=== PATIENT | female | born 1980 | race Caucasian/White ===

== ENCOUNTER 2020-06-21 16:13 | Emergency (ER) | payer OTHER ==
[2020-06-21 17:35] LABS: Basophils % 0.5 % (0-1.3); Hematocrit 41.6 % (36.0-45.0); Lymphocytes % 41.5 % (15.3-44.8); MPV 7.4 fL (7.6-11.3); RBC Red Blood Cell Count 4.67 M/uL (3.86-4.86)
[2020-06-21] MEDS ORDERED: NA CHLORIDE 0.9% 50 ML IV ONE (17:43)
[2020-06-21] MEDS ORDERED: dexAMETHasone 10 MG/ML VIAL ONE (17:43)
[2020-06-21 17:52] LABS: BUN Blood Urea Nitrogen 12 mg/dL (7-18); Bicarbonate 28 mmol/L (21-32); Glucose Level 75 mg/dL (74-106); Potassium 3.3 mmol/L (3.5-5.1); Sodium Level 141 mmol/L (136-145); Troponin (Emerg Dept Use Only) < 0.02 ng/mL (0.0-0.045)
--- NOTE | 2020-06-21 17:52 | RAD REPORT ---
EXAM DESCRIPTION: RAD - Chest Pa And Lat (2 Views) - 06/21/2020 5:19 pm CLINICAL HISTORY: CHEST PAIN Chest pain. COMPARISON: Chest Pa And Lat (2 Views) dated 02/19/2017; Chest Single View dated 08/20/2016; CHEST SI NGLE VIEW dated 11/03/2012; ABDOMEN 1 VIEW KUB dated 11/07/2008 FINDINGS: The lungs are clear. The heart is normal in size. No displaced fractures. IMPRESSION: No acute or concerning finding suspected.
--- NOTE | 2020-06-21 17:54 | ER ---
Nurse's Notes [facility] Name: Marisol Pond Age: 39 yrs Sex: Female : 1980 Arrival Date: 06/21/2020 Time: 16:14 Bed 17 Private MD: Diagnosis: Chest pain, unspecified Presentation: 06/21 16:20 Chief complaint: Patient states: "A couple months back, I would get sharp chest pains. ss I blew it off, but since Friday, it's been happening more often. I just noticed that there is something about my body that isn't normal. If I take a deep breath, or if I move my arm a certain way, I would feel it. I have anxiety, and I take something for that, but I haven't had anything going on out of the norm that would make me anxious and feel this way. Just because of the fact it's happened multiple times today make me come in.". Coronavirus screen: Client denies travel out of the [place] in the last 14 days. Ebola Screen: Patient denies exposure to infectious person. Patient denies travel to an Ebola-affected area in the 21 days before illness onset. Initial Sepsis Screen: Does the patient meet any 2 criteria? No. Patient's initial sepsis screen is negative. Does the patient have a suspected source of infection? No. Patient's initial sepsis screen is negative. Risk Assessment: Do you want to hurt yourself or someone else? Patient reports no desire to harm self or others. Onset of symptoms is unknown. 16:20 Method Of Arrival: Ambulatory 16:20 Acuity: KOBY 3 Triage Assessment: 16:20 General: Appears distressed, uncomfortable, Behavior is cooperative, appropriate for bp age, anxious. Pain: Complains of pain in chest. EENT: No deficits noted. Neuro: No deficits noted. Cardiovascular: Rhythm is sinus rhythm. Respiratory: No deficits noted. GI: No signs and/or symptoms were reported involving the gastrointestinal system. : No signs and/or symptoms were reported regarding the genitourinary system. Derm: No deficits noted. Musculoskeletal: No deficits noted. Historical: - Allergies: 16:24 No Known Allergies; ss - Home Meds: 16:24 fluoxetine 10 mg Oral tab 1 tabs once daily [Active]; ss - PMHx: 16:24 Kidney stones; Migraines; Anxiety; ss - PSHx: 16:24 Kidney stents; Lithotripsy; ss - Immunization history:: Adult Immunizations up to date. - Social history:: Smoking status: Patient denies any tobacco usage or history of. Screenin:11 Abuse screen: Denies threats or abuse. Denies injuries from another. Nutritional bp screening: No deficits noted. Tuberculosis screening: No symptoms or risk factors identified. Fall Risk None identified. Assessment: 16:20 General: SEE TRIAGE NOTE. bp 17:12 Reassessment: PT TO CT. bp 18:03 Reassessment: MD AT B/S FOR RE-EVAL. bp 18:06 Reassessment: PT D/C HOME AMBULATORY, DX WITH NONSPECIFIC CHEST PAIN. bp Vital Signs: 16:20 BP 128 / 94; Pulse 96; Resp 14; Temp 98.5(TE); Pulse Ox 99% on R/A; Weight 49.44 kg; ss Height 5 ft. 0 in. (152.40 cm); Pain 0/10; 17:11 BP 128 / 93; Pulse 86; Resp 16; Pulse Ox 100% ; bp 18:06 BP 139 / 87; Pulse 89; Resp 11; Pulse Ox 100% ; bp 16:20 Body Mass Index 21.29 (49.44 kg, 152.40 cm) ED Course: 16:14 Patient arrived in ED. ag5 16:23 Triage completed. ss 16:24 Arm band placed on right wrist. ss 16:36 Raúl Tavares, ROHAN is Primary Nurse. bp 16:39 Amara Salinas FNP-C is PHCP. snw 16:39 Gomez Ochoa MD is Attending Physician. snw 17:10 Inserted saline lock: 20 gauge in right antecubital area, using aseptic technique. dh4 Blood collected. 17:11 Patient has correct armband on for positive identification. Bed in low position. Call bp light in reach. Side rails up X2. surveillance system monitor on. Pulse ox on. NIBP on. 17:17 Chest Pa And Lat (2 Views) XRAY In Process Unspecified. EDMS 18:07 No provider procedures requiring assistance completed. IV discontinued, intact, bp bleeding controlled, No redness/swelling at site. Pressure dressing applied. Patient maintains SpO2 saturation greater than 95% on room air. Administered Medications: 17:15 Drug: Decadron 10 mg Route: IM; Site: right deltoid; bp 18:28 Follow up: Response: No adverse reaction bp Outcome: 17:53 Discharge ordered by MD. amezquita 18:07 Discharged to home ambulatory. bp 18:07 Condition: stable 18:07 Discharge instructions given to patient, Instructed on discharge instructions, follow up and referral plans. medication usage, Demonstrated understanding of instructions, follow-up care, medications, Prescriptions given X 2. 18:29 Patient left the ED. bp Signatures: Dispatcher [employer] EDMS Amara Salinas, ORGANIC PREPARATION ANALYST-C ORGANIC PREPARATION ANALYST-Csnw Cecy Vargas RN RN ss Raúl Tavares RN RN Napoleon Padgett [facility] Arnie Porter 4
--- NOTE | 2020-06-21 17:54 | EDPHYS ---
Physician Documentation [facility] Name: Marisol Pond Age: 39 yrs Sex: Female : 1980 Arrival Date: 06/21/2020 Time: 16:14 Bed 17 Private MD: ED Physician Gomez Ochoa HPI: 06/21 17:42 This 39 yrs old Female presents to ER via Ambulatory with complaints of Chest snw Pain. 17:42 Onset: The symptoms/episode began/occurred 3 week(s) ago, and became persistent. snw Associated signs and symptoms: Pertinent positives: sharp chest pain intermittently. Modifying factors: The patient symptoms are alleviated by nothing. It is unknown whether or not the patient has had similar symptoms in the past. The patient has not recently seen a physician. Historical: - Allergies: 16:24 No Known Allergies; ss - Home Meds: 16:24 fluoxetine 10 mg Oral tab 1 tabs once daily [Active]; ss - PMHx: 16:24 Kidney stones; Migraines; Anxiety; ss - PSHx: 16:24 Kidney stents; Lithotripsy; ss - Immunization history:: Adult Immunizations up to date. - Social history:: Smoking status: Patient denies any tobacco usage or history of. ROS: 17:41 Constitutional: Negative for fever, chills, and weight loss, Eyes: Negative for injury, snw pain, redness, and discharge, ENT: Negative for injury, pain, and discharge, Neck: Negative for injury, pain, and swelling, Respiratory: Negative for shortness of breath, cough, wheezing, and pleuritic chest pain, Abdomen/GI: Negative for abdominal pain, nausea, vomiting, diarrhea, and constipation, Back: Negative for injury and pain, : Negative for injury, bleeding, discharge, and swelling, MS/Extremity: Negative for injury and deformity, Skin: Negative for injury, rash, and discoloration, Neuro: Negative for headache, weakness, numbness, tingling, and seizure, Psych: Negative for depression, anxiety, suicide ideation, homicidal ideation, and hallucinations. 17:41 Cardiovascular: Positive for chest pain, of the left breast, Negative for edema, orthopnea, palpitations, paroxysmal nocturnal dyspnea. Exam: 17:41 Constitutional: This is a well developed, well nourished patient who is awake, alert, snw and in no acute distress. Head/Face: Normocephalic, atraumatic. Eyes: Pupils equal round and reactive to light, extra-ocular motions intact. Lids and lashes normal. Conjunctiva and sclera are non-icteric and not injected. Cornea within normal limits. Periorbital areas with no swelling, redness, or edema. ENT: Nares patent. No nasal discharge, no septal abnormalities noted. Tympanic membranes are normal and external auditory canals are clear. Oropharynx with no redness, swelling, or masses, exudates, or evidence of obstruction, uvula midline. Mucous membranes moist. Neck: Trachea midline, no thyromegaly or masses palpated, and no cervical lymphadenopathy. Supple, full range of motion without nuchal rigidity, or vertebral point tenderness. No Meningismus. Chest/axilla: Normal chest wall appearance and motion. Nontender with no deformity. No lesions are appreciated. Cardiovascular: Regular rate and rhythm with a normal S1 and S2. No gallops, murmurs, or rubs. Normal PMI, no JVD. No pulse deficits. Respiratory: Lungs have equal breath sounds bilaterally, clear to auscultation and percussion. No rales, rhonchi or wheezes noted. No increased work of breathing, no retractions or nasal flaring. Abdomen/GI: Soft, non-tender, with normal bowel sounds. No distension or tympany. No guarding or rebound. No evidence of tenderness throughout. Back: No spinal tenderness. No costovertebral tenderness. Full range of motion. Skin: Warm, dry with normal turgor. Normal color with no rashes, no lesions, and no evidence of cellulitis. MS/ Extremity: Pulses equal, no cyanosis. Neurovascular intact. Full, normal range of motion. Neuro: Awake and alert, GCS 15, oriented to person, place, time, and situation. Cranial nerves II-XII grossly intact. Motor strength 5/5 in all extremities. Sensory grossly intact. Cerebellar exam normal. Normal gait. Psych: Awake, alert, with orientation to person, place and time. Behavior, mood, and affect are within normal limits. 17:43 ECG was reviewed by the Attending Physician. snw Vital Signs: 16:20 BP 128 / 94; Pulse 96; Resp 14; Temp 98.5(TE); Pulse Ox 99% on R/A; Weight 49.44 kg; ss Height 5 ft. 0 in. (152.40 cm); Pain 0/10; 17:11 BP 128 / 93; Pulse 86; Resp 16; Pulse Ox 100% ; bp 18:06 BP 139 / 87; Pulse 89; Resp 11; Pulse Ox 100% ; bp 16:20 Body Mass Index 21.29 (49.44 kg, 152.40 cm) ss MDM: 17:28 Patient medically screened. snw 17:55 Data reviewed: vital signs, nurses notes. Counseling: I had a detailed discussion with snw the patient and/or guardian regarding: the historical points, exam findings, and any diagnostic results supporting the discharge/admit diagnosis, the presence of at least one elevated blood pressure reading (>120/80) during this emergency department visit, lab results, radiology results, the need for outpatient follow up, to return to the emergency department if symptoms worsen or persist or if there are any questions or concerns that arise at home. Special discussion: Based on the history and exam findings, there is no indication for further emergent testing or inpatient evaluation. I discussed with the patient/guardian the need to see the product design manager for further evaluation of the symptoms. I discussed with the patient/guardian the need to see the primary care provider for further evaluation of the symptoms. 06/21 16:41 Order name: DD; Complete Time: 17:46 snw 06/21 16:41 Order name: Troponin (emerg Dept Use Only); Complete Time: 17:52 w 06/21 16:41 Order name: Chest Pa And Lat (2 Views) XRAY; Complete Time: 17:56 snw 06/21 16:41 Order name: Chem 7; Complete Time: 17:52 snw 06/21 16:41 Order name: CBC with Diff; Complete Time: 17:44 snw 06/21 16:41 Order name: TSH; Complete Time: 17:52 snw 06/21 16:41 Order name: EKG; Complete Time: 16:41 snw 06/21 16:41 Order name: EKG - Nurse/Tech; Complete Time: 16:43 snw EC:43 Rate is 78 beats/min. Rhythm is regular. QRS [place] is Normal. OR interval is normal. snw Clinical impression: p wave inversions suggestive of ectopic atrial rhythm. Administered Medications: 17:15 Drug: Decadron 10 mg Route: IM; Site: right deltoid; bp 18:28 Follow up: Response: No adverse reaction bp Disposition: 06/21/20 17:53 Discharged to Home. Impression: Chest pain, unspecified. - Condition is Stable. - Discharge Instructions: Nonspecific Chest Pain, Electrocardiography, Hypertension, Aspirin and Your Heart. - Prescriptions for Protonix 40 mg Oral Tablet - take 1 tablet by ORAL route once daily; 30 tablet. Prednisone 20 mg Oral Tablet - take 2 tablet by ORAL route once daily for 5 days; 10 tablet. - Medication Reconciliation Form, Thank You Letter, Antibiotic Education, Prescription Opioid Use, Work release form form. - Follow up: Emergency Department; When: As needed; Reason: Worsening of condition. Follow up: Private Physician; When: 1 - 2 days; Reason: Recheck today's complaints, Continuance of care, Re-evaluation by your physician. Addendum: 06/23/2020 17:02 Co-signature as Attending Physician, Gomez Ochoa MD I agree with the assessment and k dr plan of care. Signatures: Dispatcher [employer] EDSC Gomez Ochoa MD MD [facility] Amara Salinas, HORSE TREKKING GUIDE-C HORSE TREKKING GUIDE-Csnw Cecy Vargas, ROHAN RN ss Raúl Tavares RN RN bp Corrections: (The following items were deleted from the chart) 06/21 18:29 17:53 06/21/2020 17:53 Discharged to Home. Impression: Chest pain, unspecified. bp Condition is Stable. Forms are Medication Reconciliation Form, Thank You Letter, Antibiotic Education, Prescription Opioid Use. Follow up: Emergency Department; When: As needed; Reason: Worsening of condition. Follow up: Private Physician; When: 1 - 2 days; Reason: Recheck today's complaints, Continuance of care, Re-evaluation by your physician. snw
[2020-06-21 18:34] VITALS: TEMP 98.5
[2020-06-21 18:36] VITALS: O2SAT 100
[2020-06-21 18:37] VITALS: BP 139/87
--- NOTE | 2020-06-22 08:44 | EKG ---
Test Date: 2020-06-21 Test Time: 16:49:45 Social Service Assistant: CHRISTINA MEASUREMENT RESULTS: Intervals: Rate: 78 [place]: 152 QRSD: 80 QT: 374 QTc: 426 [place]: P: 263 [place]: 152 QRS: 75 T: 66 INTERPRETIVE STATEMENTS: Unusual P axis, possible ectopic atrial rhythm Abnormal ECG Compared to ECG 08/20/2016 13:13:22 Sinus rhythm no longer present Sinus arrhythmia no longer present Electronically Signed On 06-22-20 08:43:17 CDT by Irvin Pyle
== END 2020-06-21 18:29 | disposition home or self-care (01) ==
LOC: ER 16:13
DX: R07.9 Chest pain, unspecified (principal); F41.9 Anxiety disorder, unspecified; Z87.442 Personal history of urinary calculi
CPT/HCPCS: 93005; 85025; 80048; 36415; 85379; 84443; 84484; 71046; 96372; 99285; J1100

== ENCOUNTER 2021-01-12 18:52 | Emergency (ER) | payer OTHER ==
[2021-01-12 20:21] LABS: Absolute Lymphocytes (CBC) 2.7 K/uL (0.7-4.9); Basophils % 0.4 % (0-1.3); Hematocrit 41.3 % (36.0-45.0); Lymphocytes % 27.1 % (15.3-44.8); MPV 7.2 fL (7.6-11.3); RBC Red Blood Cell Count 4.72 M/uL (3.86-4.86)
[2021-01-12 20:25] LABS: Protime INR 0.92
[2021-01-12] MEDS ORDERED: METOCLOPRAMIDE 10 MG/2mL INJ ONE (20:26)
[2021-01-12] MEDS ORDERED: DIPHENHYDRAMINE 50 MG/ML VIAL ONE (20:26)
[2021-01-12] MEDS ORDERED: NA CHLORIDE 0.9% 50 ML ONE (20:27)
[2021-01-12] MEDS ORDERED: NA CHLORIDE 0.9% 1,000 ML ONE ×2 (20:27→22:13)
[2021-01-12] MEDS ORDERED: ACETAMINOPHEN 500 MG TAB ONE (20:27)
[2021-01-12] MEDS ORDERED: dexAMETHasone 10 MG/ML VIAL ONE (20:27)
[2021-01-12 20:38] LABS: ALT/SGPT 24 U/L (12-78); AST/SGOT 16 U/L (15-37); Alkaline Phosphatase 79 U/L (45-117); BUN Blood Urea Nitrogen 15 mg/dL (7-18); Bicarbonate 26 mmol/L (21-32); Bilirubin Direct < 0.1 mg/dL (0-0.2); Bilirubin Total 0.3 mg/dL (0.2-1.0); Glucose Level 109 mg/dL (74-106); Potassium 3.7 mmol/L (3.5-5.1); Sodium Level 139 mmol/L (136-145)
--- NOTE | 2021-01-12 20:47 | RAD REPORT ---
EXAM DESCRIPTION: CT - Head Brain Wo Cont - 01/12/2021 8:05 pm CLINICAL HISTORY: HEADACHE COMPARISON: <Comparisons> TECHNIQUE: Axial 5 mm thick images of the head were obtained without IV contrast. All CT scans are performed using dose optimization technique as appropriate and may include automated exposure control or mA/KV adjustment according to patient size. FINDINGS: No intracranial hemorrhage, mass, edema or shift of mid-line structures. No acute infarcti on changes seen. No abnormal extra-axial fluid collections. Ventricles are normal. Mastoid air cells and visualized portions of the paranasal sinuses are clear. No acute bony findings. IMPRESSION: Negative non-contrast CT head examination.
[2021-01-12] MEDS ORDERED: CEFTRIAXONE/SWI 1gm 1 GM/10 ML SYR ONE (22:13)
[2021-01-12] MEDS ORDERED: KETOROLAC 30 MG/ML INJ ONE (22:13)
[2021-01-12 22:23] LABS: Urine Specific Gravity/Preg 1.025 (1.005-1.030)
--- NOTE | 2021-01-12 23:22 | ER ---
Nurse's Notes [facility] Name: Marisol Pond Age: 40 yrs Sex: Female : 1980 Arrival Date: 01/12/2021 Time: 19:02 Bed 14 Private MD: Diagnosis: Headache;Urinary tract infection, site not specified Presentation: 01/12 19:19 Chief complaint: Patient states: Migraine started at 1300 today. Took Excedrin, no ca1 relief. HX of migraines but this is the worst. Reports N/V. Coronavirus screen: Client denies travel out of the [place] in the last 14 days. headache, nausea, vomiting. Client presents with at least one sign or symptom that may indicate coronavirus-19. Standard/surgical mask placed on the client. Provider contacted for isolation considerations. Ebola Screen: Patient negative for fever greater than or equal to 101.5 degrees Fahrenheit, and additional compatible Ebola Virus Disease symptoms Patient denies exposure to infectious person. Patient denies travel to an Ebola-affected area in the 21 days before illness onset. No symptoms or risks identified at this time. Initial Sepsis Screen: Does the patient meet any 2 criteria? No. Patient's initial sepsis screen is negative. Does the patient have a suspected source of infection? No. Patient's initial sepsis screen is negative. Risk Assessment: Do you want to hurt yourself or someone else? Patient reports no desire to harm self or others. Onset of symptoms was January 12, 2021. 19:19 Method Of Arrival: Ambulatory ca1 19:19 Acuity: KOBY 3 ca1 Triage Assessment: 20:10 Headache History: The patient has had previous headaches and this one is more severe sf than previous episodes. General: Appears uncomfortable. Pain: Pain currently is 8 out of 10 on a pain scale. Pain began suddenly, Also complains of nausea, photophobia. 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 Client reports receiving the 2nd dose of the Covid vaccine, Client reports receiving the 1st dose of the Covid vaccine. - Social history:: Smoking status: Patient denies any tobacco usage or history of. Screenin:12 Abuse screen: Denies threats or abuse. Nutritional screening: No deficits noted. ea Tuberculosis screening: No symptoms or risk factors identified. Fall Risk IV access (20 points). Assessment: 20:10 General: Appears in no apparent distress. uncomfortable, Behavior is calm, cooperative. sf Pain: Complains of pain in head. Neuro: Level of Consciousness is awake, alert, Oriented to person, place, time, situation, Reports headache photophobia. Cardiovascular: No deficits noted. Respiratory: No deficits noted. GI: Abdomen is non-distended, Reports nausea. : No deficits noted. Derm: No deficits noted. No signs and/or symptoms reported regarding the dermatologic system. 21:17 Reassessment: Patient appears in no apparent distress at this time. Patient and/or sf family updated on plan of care and expected duration. Pain level reassessed. Patient is alert, oriented x 3, equal unlabored respirations, skin warm/dry/pink. Patient reports headache down to 4/10 but states "I'm surprised I still have a headache" Patient states feeling better. Patient states symptoms have improved. 22:00 Reassessment: Patient appears in no apparent distress at this time. Patient and/or sf family updated on plan of care and expected duration. Pain level reassessed. Patient is alert, oriented x 3, equal unlabored respirations, skin warm/dry/pink. Patient states feeling better. Patient states symptoms have improved. 23:36 Reassessment: Patient appears in no apparent distress at this time. Patient and/or sf family updated on plan of care and expected duration. Pain level reassessed. Patient is alert, oriented x 3, equal unlabored respirations, skin warm/dry/pink. Patient denies pain at this time. Patient states feeling better. Patient states symptoms have improved. Vital Signs: 19:19 BP 133 / 99; Pulse 96; Resp 16 S; Temp 96.9(TE); Pulse Ox 100% on R/A; Weight 51.71 kg ca1 (R); Height 5 ft. 0 in. (152.40 cm) (R); Pain 9/10; 20:18 BP 124 / 82; Pulse 105; Resp 16; Pulse Ox 100% ; sf 21:00 BP 111 / 82; Pulse 93; Resp 16; Pulse Ox 100% ; Pain 4/10; sf 22:00 BP 109 / 75; Pulse 96; Resp 16; Pulse Ox 97% ; Pain 2/10; sf 23:00 BP 104 / 74; Pulse 98; Resp 16; Pulse Ox 99% ; sf 19:19 Body Mass Index 22.26 (51.71 kg, 152.40 cm) ca1 Shane Coma Score: 23:19 Eye Response: spontaneous(4). Verbal Response: oriented(5). Motor Response: obeys [facility] commands(6). Total: 15. ED Course: 19:02 Patient arrived in ED. am2 19:21 Triage completed. ca1 19:21 Arm band placed on right wrist. ca1 19:24 Beny Villegas MD is Attending Physician. mh7 19:29 Zeb Corea RN is Primary Nurse. sf 20:00 CT Head Brain wo Cont In Process Unspecified. EDMS 20:03 Patient moved back from CT. sf 20:12 Patient has correct armband on for positive identification. Bed in low position. Call ea light in reach. Side rails up X 1. 20:12 Inserted saline lock: 22 gauge in right wrist, using aseptic technique. Blood collected.ea 21:25 No provider procedures requiring assistance completed. Urine collected: clean catch sf specimen, cloudy, sediment noted. 23:20 Malcolm Deleon MD is Referral Physician. [facility] 23:36 IV discontinued, intact, bleeding controlled, No redness/swelling at site. Pressure sf dressing applied. Administered Medications: 20:14 Drug: NS 0.9% 1000 ml Route: IV; Rate: 1000 ml; Site: right forearm; sf 21:16 Follow up: Response: No adverse reaction; Pain is decreased; IV Status: Completed sf infusion; IV Intake: 1000ml 20:14 Drug: Tylenol 1000 mg Route: PO; sf 21:15 Follow up: Response: No adverse reaction; Pain is decreased sf 20:15 Drug: Benadryl (diphenhydrAMINE) 50 mg Route: IVP; Site: right forearm; sf 21:15 Follow up: Response: No adverse reaction; Pain is decreased sf 20:17 Drug: Reglan (metoCLOPramide) 10 mg Route: IVP; Site: right forearm; sf 21:16 Follow up: Response: No adverse reaction; Pain is decreased sf 20:19 Drug: Decadron - Dexamethasone 10 mg Route: IVP; Site: right forearm; sf 21:15 Follow up: Response: No adverse reaction; Pain is decreased sf 22:00 Drug: NS 0.9% 1000 ml Route: IV; Rate: 1 bolus; Site: right antecubital; sf 23:35 Follow up: IV Status: Completed infusion; IV Intake: 1000ml sf 22:01 Drug: TORadol (ketorolac) 30 mg Route: IVP; Site: right antecubital; sf 23:35 Follow up: Response: No adverse reaction; Pain is decreased sf 22:02 Drug: Rocephin (cefTRIAXone) 1 grams Route: IV; Rate: calculated rate; Site: right sf antecubital; 22:03 Follow up: IV Status: Completed infusion; IV Intake: 10ml sf 23:36 Follow up: Response: No adverse reaction sf Intake: 21:16 IV: 1000ml; Total: 1000ml. sf 22:03 IV: 10ml; Total: 1010ml. sf 23:35 IV: 1000ml; Total: 2010ml. sf Outcome: 23:21 Discharge ordered by MD. lyle 23:36 Discharged to home ambulatory. sf 23:36 Condition: stable 23:36 Discharge instructions given to patient, Instructed on discharge instructions, follow up and referral plans. medication usage, Demonstrated understanding of instructions, follow-up care, medications, Prescriptions given X 2. 23:36 Patient left the ED. sf Addendum: 01/16/2021 07:52 Addendum: Culture Results: Positive urine culture. No further action required. Bacteria s s sensitive to prescribed antibiotic. Signatures: Dispatcher [employer] EDMS Cecy Vargas RN RN ss Moreno, Amanda am2 Antunez, Elena, RN RN ea Acob, Cheryl, RN RN ca1 Holmes, Maurice, MD MD Zeb Mcmahon RN RN
--- NOTE | 2021-01-12 23:22 | EDPHYS ---
Physician Documentation [facility] Name: Marisol Pond Age: 40 yrs Sex: Female : 1980 Arrival Date: 01/12/2021 Time: 19:02 Bed 14 Private MD: ED Physician Beny Villegas HPI: 01/12 19:41 This 40 yrs old Female presents to ER via Ambulatory with complaints of mh7 Headache. 19:41 The patient complains of pain to the right side of head. The patient describes the mh7 headache as intermittent, throbbing. Onset: The symptoms/episode began/occurred today, at 13:00. 19:42 Associated signs and symptoms: Pertinent positives: nausea, Photophobia vomiting, mh7 Pertinent negatives: altered mental status, dizziness, fever, malaise, neck stiffness, paresthesias, rash, sinus congestion, sinus tenderness, vision changes, vision loss, weakness, vertigo. Severity of symptoms: At its worst the pain was moderate, earlier today, in the emergency department the pain is unchanged. Headache History: The patient has had previous headaches and this one is more severe than previous episodes. The symptoms are alleviated by nothing. the symptoms are aggravated by lights, noise. The patient has experienced similar episodes in the past, chronically, with the last episode occurring 1 month(s) ago. 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 Client reports receiving the 2nd dose of the Covid vaccine, Client reports receiving the 1st dose of the Covid vaccine. - Social history:: Smoking status: Patient denies any tobacco usage or history of. ROS: 19:42 Constitutional: Negative for fever, chills, and weight loss, Eyes: Negative for injury, mh7 pain, redness, and discharge, ENT: Negative for injury, pain, and discharge, Neck: Negative for injury, pain, and swelling, Cardiovascular: Negative for chest pain, palpitations, and edema, Respiratory: Negative for shortness of breath, cough, wheezing, and pleuritic chest pain, Back: Negative for injury and pain. 19:42 : Negative for injury, bleeding, discharge, and swelling, MS/Extremity: Negative for injury and deformity, Skin: Negative for injury, rash, and discoloration, Psych: Negative for depression, anxiety, suicide ideation, homicidal ideation, and hallucinations, Allergy/Immunology: Negative for hives, rash, and allergies, Endocrine: Negative for neck swelling, polydipsia, polyuria, polyphagia, and marked weight changes, Hematologic/Lymphatic: Negative for swollen nodes, abnormal bleeding, and unusual bruising. 19:42 Abdomen/GI: Negative for abdominal pain, diarrhea, constipation, abdominal cramps, abdominal distension, anorexia, dysphagia, hematemesis, black/tarry stool, rectal pain, rectal bleeding, bowel incontinence, flatulence. Exam: 19:42 Constitutional: This is a well developed, well nourished patient who is awake, alert, mh7 and in no acute distress. Head/Face: Normocephalic, atraumatic. Eyes: Pupils equal round and reactive to light, extra-ocular motions intact. Lids and lashes normal. Conjunctiva and sclera are non-icteric and not injected. Cornea within normal limits. Periorbital areas with no swelling, redness, or edema. ENT: Nares patent. No nasal discharge, no septal abnormalities noted. Tympanic membranes are normal and external auditory canals are clear. Oropharynx with no redness, swelling, or masses, exudates, or evidence of obstruction, uvula midline. Mucous membranes moist. Neck: Trachea midline, no thyromegaly or masses palpated, and no cervical lymphadenopathy. Supple, full range of motion without nuchal rigidity, or vertebral point tenderness. No Meningismus. Chest/axilla: Normal chest wall appearance and motion. Nontender with no deformity. No lesions are appreciated. Cardiovascular: Regular rate and rhythm with a normal S1 and S2. No gallops, murmurs, or rubs. Normal PMI, no JVD. No pulse deficits. Respiratory: Lungs have equal breath sounds bilaterally, clear to auscultation and percussion. No rales, rhonchi or wheezes noted. No increased work of breathing, no retractions or nasal flaring. Abdomen/GI: Soft, non-tender, with normal bowel sounds. No distension or tympany. No guarding or rebound. No evidence of tenderness throughout. Back: No spinal tenderness. No costovertebral tenderness. Full range of motion. Skin: Warm, dry with normal turgor. Normal color with no rashes, no lesions, and no evidence of cellulitis. MS/ Extremity: Pulses equal, no cyanosis. Neurovascular intact. Full, normal range of motion. Neuro: Awake and alert, GCS 15, oriented to person, place, time, and situation. Cranial nerves II-XII grossly intact. Motor strength 5/5 in all extremities. Sensory grossly intact. Cerebellar exam normal. Normal gait. Psych: Awake, alert, with orientation to person, place and time. Behavior, mood, and affect are within normal limits. Vital Signs: 19:19 BP 133 / 99; Pulse 96; Resp 16 S; Temp 96.9(TE); Pulse Ox 100% on R/A; Weight 51.71 kg ca1 (R); Height 5 ft. 0 in. (152.40 cm) (R); Pain 9/10; 20:18 BP 124 / 82; Pulse 105; Resp 16; Pulse Ox 100% ; sf 21:00 BP 111 / 82; Pulse 93; Resp 16; Pulse Ox 100% ; Pain 4/10; sf 22:00 BP 109 / 75; Pulse 96; Resp 16; Pulse Ox 97% ; Pain 2/10; sf 23:00 BP 104 / 74; Pulse 98; Resp 16; Pulse Ox 99% ; sf 19:19 Body Mass Index 22.26 (51.71 kg, 152.40 cm) ca1 Shane Coma Score: 23:19 Eye Response: spontaneous(4). Verbal Response: oriented(5). Motor Response: obeys mh7 commands(6). Total: 15. MDM: 23:19 Differential diagnosis: cluster headache, migraine, tension headache, UTI. Data [facility] reviewed: vital signs, nurses notes, old medical records, lab test result(s), CBC, electrolytes, urinalysis, UPT: negative radiologic studies, CT scan. Data interpreted: Pulse oximetry: on room air is 97 %. Interpretation: normal. Counseling: I had a detailed discussion with the patient and/or guardian regarding: the historical points, exam findings, and any diagnostic results supporting the discharge/admit diagnosis, lab results, radiology results, the need for outpatient follow up, to return to the emergency department if symptoms worsen or persist or if there are any questions or concerns that arise at home. Response to treatment: the patient's symptoms have resolved after treatment, the patient's blood pressure is in an acceptable range, mental status has returned to baseline, the patient no longer shows bradycardia, the patient is not short of breath, the patient is not tachycardic, the patient's pain is gone, the patient's temperature has normalized. 23:21 Patient medically screened. 01/12 19:40 Order name: CBC with Diff; Complete Time: 20:23 01/12 19:40 Order name: Basic Metabolic Panel; Complete Time: 20:46 01/12 19:40 Order name: LFT's; Complete Time: 20:46 01/12 19:40 Order name: Protime (+inr); Complete Time: 20:26 01/12 19:40 Order name: Ptt, Activated; Complete Time: 20:26 01/12 19:40 Order name: CT Head Brain wo Cont; Complete Time: 20:50 01/12 21:34 Order name: Urine --Ancillary (enter results) 01/12 21:53 Order name: Urine Culture 01/12 19:40 Order name: Urine Dipstick-Ancillary (obtain specimen); Complete Time: 21:37 01/12 19:40 Order name: Urine Test (obtain specimen); Complete Time: 21:37 mh7 Administered Medications: 20:14 Drug: NS 0.9% 1000 ml Route: IV; Rate: 1000 ml; Site: right forearm; sf 21:16 Follow up: Response: No adverse reaction; Pain is decreased; IV Status: Completed sf infusion; IV Intake: 1000ml 20:14 Drug: Tylenol 1000 mg Route: PO; sf 21:15 Follow up: Response: No adverse reaction; Pain is decreased sf 20:15 Drug: Benadryl (diphenhydrAMINE) 50 mg Route: IVP; Site: right forearm; sf 21:15 Follow up: Response: No adverse reaction; Pain is decreased sf 20:17 Drug: Reglan (metoCLOPramide) 10 mg Route: IVP; Site: right forearm; sf 21:16 Follow up: Response: No adverse reaction; Pain is decreased sf 20:19 Drug: Decadron - Dexamethasone 10 mg Route: IVP; Site: right forearm; sf 21:15 Follow up: Response: No adverse reaction; Pain is decreased sf 22:00 Drug: NS 0.9% 1000 ml Route: IV; Rate: 1 bolus; Site: right antecubital; sf 23:35 Follow up: IV Status: Completed infusion; IV Intake: 1000ml sf 22:01 Drug: TORadol (ketorolac) 30 mg Route: IVP; Site: right antecubital; sf 23:35 Follow up: Response: No adverse reaction; Pain is decreased sf 22:02 Drug: Rocephin (cefTRIAXone) 1 grams Route: IV; Rate: calculated rate; Site: right sf antecubital; 22:03 Follow up: IV Status: Completed infusion; IV Intake: 10ml sf 23:36 Follow up: Response: No adverse reaction sf Disposition: 01/12/21 23:21 Discharged to Home. Impression: Headache, Urinary tract infection, site not specified. - Condition is Stable. - Discharge Instructions: General Headache Without Cause, Urinary Tract Infection, Adult, [id number]. - Prescriptions for Fioricet 50- 325-40 mg Oral tablet - take 1 tablet by ORAL route every 6 hours As needed as needed not to exceed 6 tablets per 24hrs; 12 tablet. Cipro 500 mg Oral Tablet - take 1 tablet by ORAL route every 12 hours for 7 days; 14 tablet. - Medication Reconciliation Form, Thank You Letter, Antibiotic Education, Prescription Opioid Use form. - Follow up: Private Physician; When: 1 - 2 days; Reason: Worsening of condition, Recheck today's complaints, Continuance of care, Re-evaluation by your physician. Follow up: Malcolm Deleon MD; When: 1 - 2 days; Reason: Worsening of condition, Recheck today's complaints. - Problem is an acute exacerbation. - Symptoms have improved. Signatures: Dispatcher [employer] EDMS Fabiola Richardson RN RN [facility] Beny Villegas MD MD [facility] Zeb Corea RN RN sf Corrections: (The following items were deleted from the chart) 19:44 19:41 Associated signs and symptoms: Pertinent positives: nausea, Photophobia [place] [id number] 23:36 23:21 01/12/2021 23:21 Discharged to Home. Impression: Headache; Urinary tract sf infection, site not specified. Condition is Stable. Forms are Medication Reconciliation Form, Thank You Letter, Antibiotic Education, Prescription Opioid Use. Follow up: Private Physician; When: 1 - 2 days; Reason: Worsening of condition, Recheck today's complaints, Continuance of care, Re-evaluation by your physician. Follow up: Malcolm Deleon; When: 1 - 2 days; Reason: Worsening of condition, Recheck today's complaints. Problem is an acute exacerbation. Symptoms have improved. mh7
[2021-01-12 23:55] VITALS: TEMP 96.9
[2021-01-13 00:55] VITALS: BP 104/74; O2SAT 99
[2021-01-17 16:18] LABS: Urine Blood 2+ (Negative); Urine Glucose NEGATIVE (Negative); Urine Protein 2+ (Negative); Urine Specific Gravity 1.025 (1.005-1.030)
== END 2021-01-12 23:36 | disposition home or self-care (01) ==
LOC: ER 18:52
DX: N39.0 Urinary tract infection, site not specified (principal); Z87.442 Personal history of urinary calculi
CPT/HCPCS: 87088; 85025; 87086; 80048; 36415; 81025; 85610; 80076; 85730; 87077; 87186; 70450; 99284; J2765; J1200; J1100; J0696; J7030 ×2; 81003

== ENCOUNTER 2022-11-20 12:09 | Emergency (ER) | payer BC, OTHER ==
[2022-11-20] MEDS ORDERED: KETOROLAC 30 MG/ML INJ ONE (13:03)
[2022-11-20 13:20] LABS: Absolute Lymphocytes (CBC) 2.4 K/uL (0.7-4.9); Hematocrit 37.8 % (36.0-45.0); Lymphocytes % 32.9 % (15.3-44.8); MCV 86.5 fL (80-100); RBC Red Blood Cell Count 4.37 M/uL (3.86-4.86)
[2022-11-20 13:22] LABS: Protime INR 1.02
[2022-11-20 13:34] LABS: ALT/SGPT 17 U/L (13-56); AST/SGOT 12 U/L (15-37); Albumin 3.5 g/dL (3.4-5.0); Alkaline Phosphatase 85 U/L (45-117); BUN Blood Urea Nitrogen 16 mg/dL (7-18); Bicarbonate 30 mmol/L (21-32); Bilirubin Total 0.2 mg/dL (0.2-1.0); Glomerular Filtration Rate 105 ml/min (=/>90); Glucose Level 90 mg/dL (74-106); Magnesium 2.2 mg/dL (1.6-2.4); NT PRO-BNP 22 pg/mL (<125); Potassium 3.6 mmol/L (3.5-5.1); Protein, Total 7.5 g/dL (6.4-8.2); Sodium Level 138 mmol/L (136-145)
[2022-11-20 13:36] LABS: Bilirubin Direct < 0.1 mg/dL (0-0.2); Troponin High Sensitivity < 3.0 pg/mL (<58.9)
--- NOTE | 2022-11-20 14:02 | RAD REPORT ---
EXAM DESCRIPTION: ADRIAChest Single View11/20/2022 1:19 pm CLINICAL HISTORY: CHEST PAIN COMPARISON: Chest Pa And Lat (2 Views) dated 06/21/2020; Chest Pa And Lat (2 Views) dated 02/19/2017; Chest Single View dated 08/20/2016; CHEST SINGLE VIEW dated 11/03/2012 TECHNIQUE: Portable AP view of the chest. FINDINGS: The lungs are clear. No pneumothorax or effusion. The cardiomediastinal contours are unrem arkable. IMPRESSION: No acute cardiopulmonary process.
--- NOTE | 2022-11-20 15:19 | ER ---
Nurse's Notes [facility] Name: Marisol Pond Age: 42 yrs Sex: Female : 1980 Arrival Date: 11/20/2022 Time: 12:12 Bed 6 Private MD: Diagnosis: Chest pain, unspecified Presentation: 11/20 12:18 Chief complaint: Patient states: for the last couple months on and off i have had this jh5 pressure in my chest like someone heavy is sitting on me. But yesterday it came on last night and its now not gone away which is new. Also if i use my right arm it causing my chest to cramp up but i also want to let you know its not like my chest chest, it's up here (points to right upper chest just under clavicle). Coronavirus screen: Vaccine status: Patient reports receiving the 2nd dose of the covid vaccine. Client denies travel out of the [place] in the last 14 days. Ebola Screen: Patient negative for fever greater than or equal to 101.5 degrees Fahrenheit, and additional compatible Ebola Virus Disease symptoms Patient denies exposure to infectious person. Patient denies travel to an Ebola-affected area in the 21 days before illness onset. Initial Sepsis Screen: Does the patient meet any 2 criteria? No. Patient's initial sepsis screen is negative. Does the patient have a suspected source of infection? No. Patient's initial sepsis screen is negative. Risk Assessment: Do you want to hurt yourself or someone else? Patient reports no desire to harm self or others. 12:18 Method Of Arrival: Ambulatory [facility] 12:18 Acuity: KOBY 3 5 Triage Assessment: 12:21 General: Appears uncomfortable, slender, well groomed, well developed, Behavior is jh5 calm, cooperative, appropriate for age. Pain: Denies pain. 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 - Social history:: Smoking status: Patient denies any tobacco usage or history of. Screenin:34 [facility] ED Fall Risk Assessment (Adult) History of falling in the last 3 months, kc6 including since admission No falls in past 3 months (0 pts) Confusion or Disorientation No (0 pts) Intoxicated or Sedated No (0 pts) Impaired Gait No (0 pts) Mobility Assist Device Used No (0 pt) Altered Elimination No (0 pt) Score/Fall Risk Level 0 - 2 = Low Risk Oriented to surroundings, Maintained a safe environment, Educated pt \T\ family on fall prevention, incl call for assistance when getting out of bed, Assessed \T\ reinforced patient's understanding of fall precautions, Hourly rounding (assess needs \T\ fall precautionary measures) done. Abuse screen: Denies threats or abuse. Denies injuries from another. Nutritional screening: No deficits noted. Tuberculosis screening: No symptoms or risk factors identified. Assessment: 12:33 General: Appears in no apparent distress. comfortable, Behavior is calm, cooperative, kc6 appropriate for age. Pain: Complains of pain in anterior aspect of right upper chest Pain radiates to right arm Pain currently is 0 out of 10 on a pain scale. Quality of pain is described as heavy, pressure, Pain began 1 day ago. Is continuous, Alleviated by nothing. Also complains of no other associated symptoms. Neuro: Root Agitation-Sedation Scale (RASS): 0 - Alert and Calm Level of Consciousness is awake, alert, obeys commands, Oriented to person, place, time, situation, Appropriate for age. Cardiovascular: Denies chest pain, Capillary refill < 3 seconds. Respiratory: Airway is patent Trachea midline Respiratory effort is even, unlabored, Respiratory pattern is regular, symmetrical, Denies shortness of breath. GI: No signs and/or symptoms were reported involving the gastrointestinal system. : No signs and/or symptoms were reported regarding the genitourinary system. EENT: No signs and/or symptoms were reported regarding the EENT system. Derm: No signs and/or symptoms reported regarding the dermatologic system. Skin is intact, Skin is pink, warm \T\ dry. Musculoskeletal: No signs and/or symptoms reported regarding the musculoskeletal system. Circulation, motion, and sensation intact. Capillary refill < 3 seconds, Range of motion: intact in all extremities. 13:33 Reassessment: Patient appears in no apparent distress at this time. No changes from kc6 previously documented assessment. Patient and/or family updated on plan of care and expected duration. Pain level reassessed. Patient is alert, oriented x 3, equal unlabored respirations, skin warm/dry/pink. Patient denies pain at this time. 14:33 Reassessment: Patient appears in no apparent distress at this time. No changes from 6 previously documented assessment. Patient and/or family updated on plan of care and expected duration. Pain level reassessed. Patient is alert, oriented x 3, equal unlabored respirations, skin warm/dry/pink. Patient denies pain at this time. Vital Signs: 12:18 BP 125 / 92; Pulse 85; Resp 16; Temp 98.6; Pulse Ox 100% ; Weight 48.53 kg; Height 5 [facility] ft. 0 in. (152.40 cm); Pain 0/10; 13:40 BP 112 / 81; Pulse 84; Resp 16 S; Pulse Ox 99% on R/A; Pain 0/10; kc6 14:47 BP 114 / 79; Pulse 86; Resp 18 S; Pulse Ox 100% on R/A; kc6 12:18 Body Mass Index 20.90 (48.53 kg, 152.40 cm) [facility] ED Course: 12:12 Patient arrived in ED. am2 12:21 Triage completed. [facility] 12:21 Arm band placed on right wrist. [facility] 12:22 Albino Cueto PA is PHCP. [facility] 12:23 Robert Nuñez MD is Attending Physician. [facility] 12:26 Adrienne Kilgore, RN is Primary Nurse. [facility] 12:35 Patient has correct armband on for positive identification. Bed in low position. Call [facility] light in reach. Side rails up X 1. Client placed on continuous cardiac and pulse oximetry monitoring. NIBP monitoring applied. 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 12:35 Patient maintains SpO2 saturation greater than 95% on room air. [facility] 15:17 Mehdi Hodges MD is Referral Physician. [facility] 15:18 Ha Ziegler MD is Referral Physician. [facility] 15:25 No provider procedures requiring assistance completed. IV discontinued, intact, kc6 bleeding controlled, No redness/swelling at site. Pressure dressing applied. Administered Medications: 13:06 Drug: Ketorolac 30 mg Route: IVP; Site: right antecubital; 6 13:41 Follow up: Response: No adverse reaction; Pain is decreased kc6 Medication: 15:25 VIS not applicable for this client. kc6 Outcome: 15:18 Discharge ordered by MD. forde 15:25 Discharged to home ambulatory. kc6 15:25 Condition: stable 15:25 Discharge instructions given to patient, Instructed on discharge instructions, follow up and referral plans. medication usage, Demonstrated understanding of instructions, follow-up care, medications, Prescriptions given X 2. 15:26 Patient left the ED. kc6 Signatures: Albino Cueto PA PA jmm Moreno, Amanda am2 Toña Garcia, RN RN jh5 Adrienne Kilgore RN RN kc6
--- NOTE | 2022-11-20 15:19 | EDPHYS ---
Physician Documentation [facility] Name: Marisol Pond Age: 42 yrs Sex: Female : 1980 Arrival Date: 11/20/2022 Time: 12:12 Bed 6 Private MD: ED Physician Robert Nuñez HPI: 11/20 12:35 This 42 yrs old Female presents to ER via Ambulatory with complaints of Chest Pressure jmm - right side. 12:35 The patient or guardian reports chest pain that is located primarily in the substernal [facility] area. Onset: gradually, 1 day(s) ago. Is a 42-year-old female with history of anxiety, kidney stones, migraines and presents emerged part with complaints of right sided chest pain which she states has been intermittent over the past few months but has been constant since yesterday. Patient also does have some shortness of breath as well. Denies fever.. PRIMARY COUNSELOR: 12:21 LMP 11/18/2022 [facility] Historical: - Allergies: 12:21 No Known Allergies; [facility] - PMHx: 12:21 Anxiety; Kidney stones; Migraines; [facility] - PSHx: 12:21 None; [facility] - Immunization history:: Adult Immunizations up to date. - Social history:: Smoking status: Patient denies any tobacco usage or history of. ROS: 12:35 Constitutional: Negative for fever, chills, and weight loss. jmm 12:35 Cardiovascular: Positive for chest pain. 12:35 Respiratory: Positive for shortness of breath. 12:35 All other systems are negative. Exam: 12:35 Constitutional: This is a well developed, well nourished patient who is awake, alert, jmm and in no acute distress. Head/Face: atraumatic. Eyes: EOMI, no conjunctival erythema appreciated ENT: Moist Mucus Membranes Neck: Trachea midline, Supple Chest/axilla: Normal chest wall appearance and motion. Cardiovascular: Regular rate and rhythm. No edema appreciated Respiratory: Normal respirations, no respiratory distress appreciated Abdomen/GI: Non distended Back: Normal ROM Skin: General appearance color normal MS/ Extremity: Moves all extremities, no obvious deformities appreciated, no edema noted to the lower extremities Neuro: Awake and alert Psych: Behavior is normal, Mood is normal, Patient is cooperative and pleasant 12:35 Chest/axilla: Palpation: tenderness, that is mild, of the anterior aspect of right upper chest. 15:13 ECG was reviewed by the Attending Physician. [facility] Vital Signs: 12:18 BP 125 / 92; Pulse 85; Resp 16; Temp 98.6; Pulse Ox 100% ; Weight 48.53 kg; Height 5 5 ft. 0 in. (152.40 cm); Pain 0/10; 13:40 BP 112 / 81; Pulse 84; Resp 16 S; Pulse Ox 99% on R/A; Pain 0/10; kc6 14:47 BP 114 / 79; Pulse 86; Resp 18 S; Pulse Ox 100% on R/A; kc6 12:18 Body Mass Index 20.90 (48.53 kg, 152.40 cm) 5 MDM: 12:35 Patient medically screened. itzel 15:13 Data reviewed: vital signs, nurses notes, lab test result(s), EKG, radiologic studies. [facility] 15:15 Differential diagnosis: chest wall pain, costochondritis, myocarditis, peptic ulcer [facility] disease, pulmonary embolus, stable angina. I considered the following discharge prescriptions or medication management in the emergency department Medications were administered in the Emergency Department. See MAR. Independent interpretation of the following test(s) in the Emergency Department X-Ray: My interpretation is no infiltrate appreciated. Counseling: I had a detailed discussion with the patient and/or guardian regarding: the historical points, exam findings, and any diagnostic results supporting the discharge/admit diagnosis, lab results, radiology results, the need for outpatient follow up, to return to the emergency department if symptoms worsen or persist or if there are any questions or concerns that arise at home. ED course: Patient does have mild improvement of her chest pain. Symptoms have been ongoing constantly since yesterday. Troponin was normal. I do not currently suspect ACS. Patient advised follow-up PCP for further evaluation otherwise given strict return precautions. Patient understood and agrees plan of care.. 11/20 12:48 Order name: Basic Metabolic Panel [facility] 11/20 12:48 Order name: CBC with Diff [facility] 11/20 12:48 Order name: D-Dimer [facility] 11/20 12:48 Order name: LFT's [facility] 11/20 12:48 Order name: Magnesium [facility] 11/20 12:48 Order name: NT PRO-BNP [facility] 11/20 12:48 Order name: PT-INR [facility] 11/20 12:48 Order name: Troponin HS [facility] 11/20 13:23 Order name: Protime (+INR); Complete Time: 13:33 EDMS 11/20 13:23 Order name: D-Dimer; Complete Time: 13:33 EDMS 11/20 13:31 Order name: CBC with Automated Diff; Complete Time: 13:33 EDMS 11/20 13:36 Order name: Basic Metabolic Panel; Complete Time: 13:36 EDMS 11/20 13:36 Order name: Liver (Hepatic) Function; Complete Time: 13:36 EDMS 11/20 13:36 Order name: Troponin High Sensitivity; Complete Time: 13:36 EDFL 11/20 12:48 Order name: XRAY Chest (1 view) [facility] 11/20 12:48 Order name: EKG; Complete Time: 12:49 [facility] 11/20 12:48 Order name: Cardiac monitoring; Complete Time: 12:48 [facility] 11/20 12:48 Order name: EKG - Nurse/Tech; Complete Time: 12:54 [facility] 11/20 12:48 Order name: IV Saline Lock; Complete Time: 13:00 [facility] 11/20 12:48 Order name: Labs collected and sent; Complete Time: 13:00 [facility] 11/20 12:48 Order name: O2 Per Protocol; Complete Time: 12:48 [facility] 11/20 12:48 Order name: O2 Sat Monitoring; Complete Time: 12:48 [facility] 11/20 13:36 Order name: NT PRO-BNP; Complete Time: 13:36 EDFL 11/20 13:36 Order name: Magnesium; Complete Time: 13:36 EDFL 11/20 14:03 Order name: RAD; Complete Time: 14:03 EDMS EC:51 Rate is 85 beats/min. Rhythm is regular. QRS Otho is Normal. NC interval is normal. QRS jmm interval is normal. QT interval is normal. No Q waves. T waves are Normal. No ST changes noted. Reviewed by me. Administered Medications: 13:06 Drug: Ketorolac 30 mg Route: IVP; Site: right antecubital; kc6 13:41 Follow up: Response: No adverse reaction; Pain is decreased kc6 Disposition Summary: 11/20/22 15:18 Discharge Ordered Location: Home [facility] Condition: Stable jm Diagnosis - Chest pain, unspecified jmm Followup: [facility] - With: Mehdi Hodges MD - When: 2 - 3 days - Reason: Recheck today's complaints, Continuance of care, Re-evaluation by your physician Followup: [facility] - With: Ha Ziegler MD - When: 2 - 3 days - Reason: Recheck today's complaints, Continuance of care, Re-evaluation by your physician Discharge Instructions: - Discharge Summary Sheet jm - Nonspecific Chest Pain, Adult jm Forms: - Medication Reconciliation Form [facility] - Thank You Letter [facility] - Antibiotic Education [facility] - Prescription Opioid Use [facility] Prescriptions: - Medrol (Kristopher) 4 mg Oral Tablets, Dose Pack - take 1 tablet by ORAL route as directed - follow package instructions; 1 jmm packet; Refills: 0, Product Selection Permitted - orphenadrine citrate 100 mg Oral Tablet Sustained Release - take 1 tablet by ORAL route 2 times per day As needed; 20 tablet; Refills: 0, [facility] Product Selection Permitted Signatures: Dispatcher [employer] Robert Spears MD MD cha Mickail, Joel, PA PA jmm Rees, Jessica, RN RN jh5 Adrienne Kilgore RN RN kc6
[2022-11-20 15:53] VITALS: TEMP 98.6
[2022-11-20 16:17] VITALS: BP 114/79; O2SAT 100
--- NOTE | 2022-11-21 16:32 | EKG ---
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
== END 2022-11-20 15:26 | disposition home or self-care (01) ==
LOC: ER 12:09
DX: R07.89 Other chest pain (principal); R06.02 Shortness of breath
CPT/HCPCS: 36415; 71045; 80048; 80076; 83735; 83880; 84484; 85025; 85379; 85610; 93005; 96374; 99284

== ENCOUNTER 2023-07-17 22:55 | Emergency (ER) | payer BC ==
--- OUTSIDE RECORDS SUMMARY | 2023-07-17 22:59 | XMS REPORT | Continuity of Care Document ---
:1980 Author Organization [facility] t Address [address] [place] [address] [place] [id number] Care Team Providers Name Role Phone Crispin Acosta Primary Care Physician CRISPIN LIAO Attending Clinician Unavailable Arthur REDMANDecember Attending Clinician Unavailable GERALDO WADE Attending Clinician Unavailable GERALDO WADE Attending Clinician Unavailable Sheng Allen MD Attending Clinician 1, Clc Mf Usg Room Attending Clinician Unavailable SHENG ALLEN Attending Clinician Unavailable Lab, Ang - Db Attending Clinician Unavailable Crispin Acosta Attending Clinician Doctor Unassigned, [place] Attending Clinician Unavailable GERALDO WADE Admitting Clinician Unavailable Payers Payer Name Policy Type Policy Number Effective Date Expiration Date S ource TML BCBS OF [id number] 2021 00:00:00 [place] Problems Condition Condition Condition Status Onset Resolution Last Treating Co mments Source Name Details Category Date Date Treatment Clinician Date Menorrhagi Menorrhagi Disease Active U nivers a with a with 5-11 ity of regular regular 00:00: [place] cycle cycle 00 Medical Branch Endometrio Endometrio Disease Active U nivers sis of sis of 5-11 ity of uterus uterus 00:00: [facility] Branch HSV HSV Disease Active Univers (herpes (herpes 4-07 ity of simplex simplex 00:00: [place] virus) virus) 00 Medical infection infection Bran ch Fatigue, Fatigue, Disease Active Unive rs unspecifie unspecifie 3-21 it y of d type d type 00:00: [place] 00 Medical Branch Encounter Encounter Disease Active Uni vers to to 3-21 ity of establish establish 00:00: Ayaan whatley care care 00 Medical Branch Migraine Migraine Disease Active Unive rs with aura with aura 3- ity of and with and with 00:00: [place] status status 00 Medical migrainosu migrainosu Br anch s, not s, not intractabl intractabl e e Need for Need for Disease Active Unive rs hepatitis hepatitis 3- ity of C C 00:00: [place] screening screening 00 Medi delmi test test Branch Cervical Cervical Disease Active Unive rs cancer cancer 3-21 ity of screening screening 00:00: [facility] s 00 Medical Branch Allergies, Adverse Reactions, Alerts Allergy Allergy Status Severity Reaction(s) Onset Inactive Treating Comm ents Source Name Type Date Date Clinician NO KNOWN Drug Active Univers ALLERGIE Class ity of S [facility] Social History Social Habit Start Date Stop Date Quantity Comments Source Gender identity Universit y of [facility] Sexual orientation Univer sity of [facility] Exposure to 2023-01-27 2023-02-06 Not sure [facility] SARS-CoV-2 (event) 00:00:00 07:54:00 [facility] History of Social 2023-02-06 2023-02-06 Univers ity of function 00:00:00 00:00:00 [facility] Alcohol intake 2023-02-06 2023-02-06 .14 /d University of 00:00:00 00:00:00 [facility] Tobacco use and 2023-01-03 2023-01-03 Smokeless Universit y of exposure 00:00:00 00:00:00 tobacco non-user [facility] [place] [facility] dical [place] Alcohol Comment 2023-01-03 2023-01-03 Every couple of Univ ersity of 00:00:00 00:00:00 weeks may have a [facility] [place] [facility] dicca glass of wine Branch Sex Assigned At [birth year] Universit y of 00:00:00 00:00:00 [facility] Smoking Status Start Date Stop Date Source Tobacco smoking consumption Univ [facility] unknown Branch Never smoked tobacco [facility] Medications Ordered Filled Start Stop Current Ordering Indication Dosage Frequency Signature Comments Components Source Medication Medication Date Date Medication? Clinician (SIG) Name Name LOESTRIN FE 2022-0 Yes [id number] 1{tbl} Take 1 Univers (LOESTRIN 5-11 tablet by itCIRQY o Anzu FE 10/18) 1 00:00: mouth in [place] mg-20 mcg 00 the Medical (21)/75 mg morning. Branc h (7) tablet LOESTRIN FE 3-0 Yes [id number] 1{tbl} Take 1 Univers (LOESTRIN 5-11 tablet by Tabblo o Anzu FE 10/18) 1 00:00: mouth in [place] mg-20 mcg 00 the Medical (21)/75 mg morning. Branc h (7) tablet LOESTRIN FE 3-0 Yes [id number] 1{tbl} Take 1 Univers (LOESTRIN 5-11 tablet by [employer] FE 10/18) 1 00:00: mouth in [place] mg-20 mcg 00 the Medical (21)/75 mg morning. Branc h (7) tablet LOESTRIN FE 3-0 Yes [id number] 1{tbl} Take 1 Univers (LOESTRIN 5-11 tablet by [employer] FE 10/18) 1 00:00: mouth in [place] mg-20 mcg 00 the Medical (21)/75 mg morning. Branc h (7) tablet LOESTRIN FE 3-0 Yes [id number] 1{tbl} Take 1 Univers (LOESTRIN 5-11 tablet by [employer] FE 10/18) 1 00:00: mouth in [place] mg-20 mcg 00 the Medical (21)/75 mg morning. Branc h (7) tablet Nitrofurant 2022-0 Yes TAKE 1 Univ ers oin&Nit. 4-27 CAPSULE BY ity o f Macrocryst 00:00: MOUTH 2 [place] 100 mg 00 TIMES PER Medical capsule DAY FOR 7 Branch DAYS Nitrofurant 3-0 Yes TAKE 1 Univ ers oin&Nit. 4-27 CAPSULE BY ity o f Macrocryst 00:00: MOUTH 2 [place] 100 mg 00 TIMES PER Medical capsule DAY FOR 7 Branch DAYS Nitrofurant 2022-0 Yes TAKE 1 Univ ers oin&Nit. 4-27 CAPSULE BY ity o f Macrocryst 00:00: MOUTH 2 [place] 100 mg 00 TIMES PER Medical capsule DAY FOR 7 Branch DAYS Nitrofurant 2022-0 Yes TAKE 1 Univ ers oin&Nit. 4-27 CAPSULE BY ity o f Macrocryst 00:00: MOUTH 2 [place] 100 mg 00 TIMES PER Medical capsule DAY FOR 7 Branch DAYS Nitrofurant 2022-0 Yes TAKE 1 Univ ers oin&Nit. 4-27 CAPSULE BY ity o f Macrocryst 00:00: MOUTH 2 [place] 100 mg 00 TIMES PER Medical capsule DAY FOR 7 Branch DAYS valACYclovi 0 Yes [id number] 500mg Take 1 Univers r (VALTREX) 4-07 tablet by ity of 500 mg 00:00: mouth in [place] tablet 00 the Medical morning Branch and 1 tablet in the evening. valACYclovi 0 Yes [id number] 500mg Take 1 Univers r (VALTREX) 4-07 tablet by ity of 500 mg 00:00: mouth in [place] tablet 00 the Medical morning Branch and 1 tablet in the evening. valACYclovi 0 Yes [id number] 500mg Take 1 Univers r (VALTREX) 4-07 tablet by ity of 500 mg 00:00: mouth in [place] tablet 00 the Medical morning Branch and 1 tablet in the evening. valACYclovi 0 Yes [id number] 500mg Take 1 Univers r (VALTREX) 4-07 tablet by ity of 500 mg 00:00: mouth in [place] tablet 00 the Medical morning Branch and 1 tablet in the evening. valACYclovi 2022-0 Yes [id number] 500mg Take 1 Univers r (VALTREX) 4-07 tablet by ity of 500 mg 00:00: mouth in [place] tablet 00 the Medical morning Branch and 1 tablet in the evening. valACYclovi 2022-0 Yes [id number] 500mg Take 1 Univers r (VALTREX) 4-07 tablet by ity of 500 mg 00:00: mouth in [place] tablet 00 the Medical morning Branch and 1 tablet in the evening. valACYclovi 2022-0 Yes [id number] 500mg Take 1 Univers r (VALTREX) 4-07 tablet by ity of 500 mg 00:00: mouth in [place] tablet 00 the Medical morning Branch and 1 tablet in the evening. valACYclovi 2023-0 Yes [id number] 500mg Take 1 Univers r (VALTREX) 4-07 tablet by ity of 500 mg 00:00: mouth in [place] tablet 00 the Medical morning Branch and 1 tablet in the evening. valACYclovi 2023-0 Yes [id number] 500mg Take 1 Univers r (VALTREX) 4-07 tablet by ity of 500 mg 00:00: mouth in [place] tablet 00 the Medical morning Branch and 1 tablet in the evening. valACYclovi 2023-0 Yes [id number] 500mg Take 1 Univers r (VALTREX) 4-07 tablet by ity of 500 mg 00:00: mouth in [place] tablet 00 the Medical morning Branch and 1 tablet in the evening. valACYclovi 2023-0 Yes [id number] 500mg Take 1 Univers r (VALTREX) 4-07 tablet by ity of 500 mg 00:00: mouth in [place] tablet 00 the Medical morning Branch and 1 tablet in the evening. ubrogepant 2023-0 Yes [id number] 50mg Take 50 mg Univers (UBRELVY) 3-21 by mouth ity of 50 mg Tab 00:00: as needed [place] 00 for Pain Medical (scale Branch 4-6) (take 1 on onset of migraine may repeat dose in 2hrs later max dosage of 200mg/24hr ). ubrogepant 2023-0 Yes [id number] 50mg Take 50 mg Univers (UBRELVY) 3-21 by mouth ity of 50 mg Tab 00:00: as needed [place] 00 for Pain Medical (scale Branch 4-6) (take 1 on onset of migraine may repeat dose in 2hrs later max dosage of 200mg/24hr ). ubrogepant 2023-0 Yes [id number] 50mg Take 50 mg Univers (UBRELVY) 3-21 by mouth ity of 50 mg Tab 00:00: as needed [place] 00 for Pain Medical (scale Branch 4-6) (take 1 on onset of migraine may repeat dose in 2hrs later max dosage of 200mg/24hr ). ubrogepant 2023-0 Yes [id number] 50mg Take 50 mg Univers (UBRELVY) 3-21 by mouth ity of 50 mg Tab 00:00: as needed [place] 00 for Pain Medical (scale Branch 4-6) (take 1 on onset of migraine may repeat dose in 2hrs later max dosage of 200mg/24hr ). ubrogepant 2023-0 Yes [id number] 50mg Take 50 mg Univers (UBRELVY) 3-21 by mouth ity of 50 mg Tab 00:00: as needed [place] 00 for Pain Medical (scale Branch 4-6) (take 1 on onset of migraine may repeat dose in 2hrs later max dosage of 200mg/24hr ). ubrogepant 2023-0 Yes [id number] 50mg Take 50 mg Univers (UBRELVY) 3-21 by mouth ity of 50 mg Tab 00:00: as needed [place] 00 for Pain Medical (scale Branch 4-6) (take 1 on onset of migraine may repeat dose in 2hrs later max dosage of 200mg/24hr ). ubrogepant 2023-0 Yes [id number] 50mg Take 50 mg Univers (UBRELVY) 3-21 by mouth ity of 50 mg Tab 00:00: as needed [place] 00 for Pain Medical (scale Branch 4-6) (take 1 on onset of migraine may repeat dose in 2hrs later max dosage of 200mg/24hr ). ubrogepant 2023-0 Yes [id number] 50mg Take 50 mg Univers (UBRELVY) 3-21 by mouth ity of 50 mg Tab 00:00: as needed [place] 00 for Pain Medical (scale Branch 4-6) (take 1 on onset of migraine may repeat dose in 2hrs later max dosage of 200mg/24hr ). ubrogepant 2023-0 Yes [id number] 50mg Take 50 mg Univers (UBRELVY) 3-21 by mouth ity of 50 mg Tab 00:00: as needed [place] 00 for Pain Medical (scale Branch 4-6) (take 1 on onset of migraine may repeat dose in 2hrs later max dosage of 200mg/24hr ). ubrogepant 2023-0 Yes [id number] 50mg Take 50 mg Univers (UBRELVY) 3-21 by mouth ity of 50 mg Tab 00:00: as needed [place] 00 for Pain Medical (scale Branch 4-6) (take 1 on onset of migraine may repeat dose in 2hrs later max dosage of 200mg/24hr ). ubrogepant 3-0 Yes [id number] 50mg Take 50 mg Univers (UBRELVY) 3-21 by mouth ity of 50 mg Tab 00:00: as needed [place] 00 for Pain Medical (scale Branch 4-6) (take 1 on onset of migraine may repeat dose in 2hrs later max dosage of 200mg/24hr ). ubrogepant 3-0 Yes [id number] 50mg Take 50 mg Univers (UBRELVY) 3-21 by mouth ity of 50 mg Tab 00:00: as needed [place] 00 for Pain Medical (scale Branch 4-6) (take 1 on onset of migraine may repeat dose in 2hrs later max dosage of 200mg/24hr ). ubrogepant 3-0 Yes [id number] 50mg Take 50 mg Univers (UBRELVY) 3-21 by mouth ity of 50 mg Tab 00:00: as needed [place] 00 for Pain Medical (scale Branch 4-6) (take 1 on onset of migraine may repeat dose in 2hrs later max dosage of 200mg/24hr ). ubrogepant 3-0 Yes [id number] 50mg Take 50 mg Univers (UBRELVY) 3-21 by mouth ity of 50 mg Tab 00:00: as needed [place] 00 for Pain Medical (scale Branch 4-6) (take 1 on onset of migraine may repeat dose in 2hrs later max dosage of 200mg/24hr ). Vital Signs Vital Name Observation Time Observation Value Comments Source Systolic blood 2023-02-06 13:06:00 110 [facility] [place] [facility] Diastolic blood 2023-02-06 13:06:00 74 mm[Hg] Unive [facility] Heart rate 2023-02-06 13:06:00 83 /min [facility] Body temperature 2023-02-06 13:06:00 36.72 Ely [facility] Respiratory rate 2023-02-06 13:06:00 17 /min [facility] Body height 2023-02-06 13:06:00 152.4 cm [facility] Body weight 2023-02-06 13:06:00 48.807 kg [facility] BMI 2023-02-06 13:06:00 21.01 kg/m2 [facility] [place] [facility] Systolic blood 2023-01-03 13:17:00 124 mm[Hg] Univer sity of pressure [place] [facility] Diastolic blood 2023-01-03 13:17:00 86 mm[Hg] Unive rsity of pressure [facility] Heart rate 2023-01-03 13:17:00 91 /min [facility] [place] [facility] Respiratory rate 2023-01-03 13:17:00 16 /min Univ ersity of [place] [facility] Body height 2023-01-03 13:17:00 152.4 cm [facility] [place] [facility] Body weight 2023-01-03 13:17:00 48.308 kg [facility] [place] [facility] BMI 2023-01-03 13:17:00 20.80 kg/m2 Universi ty of [facility] Oxygen saturation in 2023-01-03 13:17:00 98 /min University of Arterial blood by [employer] Pulse oximetry Branch Systolic blood 2022-12-17 14:39:00 110 mm[Hg] Univer sity of pressure [place] [facility] Diastolic blood 2022-12-17 14:39:00 70 mm[Hg] Unive rsity of pressure [place] [facility] [place] Heart rate 2022-12-17 14:39:00 94 /min [facility]i ty [facility] [place] [facility] [place] Body temperature 2022-12-17 14:39:00 36.56 Ely Univ ersity of [facility] Respiratory rate 2022-12-17 14:39:00 18 /min Univ ersity [facility] [place] [facility] Body height 2022-12-17 14:39:00 152.4 cm [facility] [place] [facility] Body weight 2022-12-17 14:39:00 48.852 kg [facility] [place] [facility] BMI 2022-12-17 14:39:00 21.03 kg/m2 [facility] [place] [facility] Oxygen saturation in 2022-12-17 14:39:00 100 /min University of Arterial blood by [employer] Pulse oximetry Branch Procedures Procedure Date / Time Performed Performing Clinician Sourc e POCT TEST 2023-02-06 00:00:00 [facility] 2023-01-03 13:43:00 Geraldo Wadeer sity [facility] SMEAR-LIQUID [facility] h HIGH RISK HPV-THIN 2023-01-03 13:43:00 [facility] PAP SMEAR-LIQUID 2023-01-03 13:43:00 [facility] ASSIGNMENT OF BENEFITS 2022-12-17 14:31:25 Doctor Unassigned, No [facility] Name [facility] Encounters Start End Encounter Admission Attending Care Care Encounter Source Date/Time Date/Time Type Type Clinicians Facility Department ID 2023-06-20 2023-06-20 Outpatient R YANNI [facility] [id number] Univers 08:00:00 08:00:00 CRISPIN cody [facility] 2023-06-13 2023-06-13 Pre Visit DAREK Gibson [id number] Univers 00:00:00 00:00:00 Outreach Tammy NI 350.1.13.10 i [place] of [place] [id number] [facility] 086 Branch 2023-05-08 2023-05-08 Outpatient R GERALDO WADE [facility] U TMB [id number] Univers 08:30:00 08:30:00 [facility]23-04-08 2023-04-08 Telephone [facility] 1.2.840.11 [id number] Univers 00:00:00 00:00:00 Geraldo whatley 350.1.13.10 ity of [place] 4[place]2.[place].2.686 [place] [facility] [id number] [facility] 134 Branch 2023-04-07 2023-04-07 Telephone JamesLTAC, located within [facility] 1.2.840.11 [id number] Univers 00:00:00 00:00:00 Geraldo whatley 350.1.13.10 ity of [place].2.686 [place] [facility] [id number] [facility] 134 Branch 2023-02-06 2023-02-06 Office [facility] [id number] Univers 08:00:00 08:38:31 Visit Geraldo whatley 350.1.13.10 ity of WOMEN'S 4.2.7.2.686 [facility] [place] [id number] [facility] 134 Branch 2023-02-06 2023-02-06 Outpatient R MARY WADESOL [facility] U [facility] [id number] Univers 08:00:00 08:38:31 JAMES-MARY BOGGSSOL [facility] 2023-02-03 2023-02-03 [facility] 1.2.840.114 [id number] Univers 13:55:45 23:59:00 Encounter sGeraldo 350.1.13.10 ity of [place] 4.2.7.2.686 [facility] [id number] [facility] 800 Branch 2023-02-03 2023-02-03 Outpatient R MARY WADESOL [facility] U [facility] [id number] Univers 13:55:45 23:59:00 JAMES-MARY BOGGSSOL [facility] 2023-01-31 2023-01-31 Outpatient R MARY WADESOL [facility] U [facility] [id number] Univers 08:00:00 08:00:00 [facility] 2023-01-16 2023-01-16 Office Sheng Allen [facility] [id number] Univers 15:30:00 16:00:00 Visit 1, Clc Mfm Us Room HEALTH 350.1.13.1 0 ity of [place] 4.2.7.2.686 [facility] [id number] [address] OFFICE BUILDING 2023-01-16 2023-01-16 Outpatient R TIFFANY TNMARGARET [facility] [id number] Univers 15:30:00 15:30:00 SHENG [facility] 2023-01-03 2023-01-03 Outpatient R GERALDO WADE [facility] [id number] Univers 08:30:00 09:05:06 GERALDO WADE ity of [facility] 2023-01-03 2023-01-03 Office Jai [facility] [id number] Univers 08:30:00 09:05:06 Visit Geraldo whatley 350.1.13.10 ity of [place] 4[place]2.[place].2.686 [place] [id number] [address] 2022-12-17 2022-12-17 [facility], Bob - Alton [facility] 1.2.840.1 [id number] Univers 10:30:00 10:33:36 Visit Ashlibrittany Crispin DOMINGUEZ 350.1.13.10 ity of [place] 4.2.7.2.686 [place] as ELIZABETH?BLEA [id number] Ca nino OLIVO [address] [place] MEDICAL OFFICE [facility] 2022-12-17 2022-12-17 Outpatient R ASHLIBrittany [facility] [id number] Univers 10:00:00 10:16:50 CRISPIN cody [facility] 2022-12-17 2022-12-17 [facility] 1.2.840.114 [id number] Univers 10:00:00 10:16:50 Visit Crispin DOMINGUEZ 350.1.13.10 it y of [place] 4.2.7.2.686 [place]el as ELIZABETH?BLEA [id number] Ca [facility] [address] [place] MEDICAL OFFICE [facility] 2022-12-17 2022-12-17 Orders Doctor KATELIN [id number] [id number] Univers 00:00:00 00:00:00 Only Unassigned, MARCELLO 350.1.13.10 ity of [place] [facility] 4.2.7.2.686 [place] as [id number] [address] Results Test Description Test Time Test Comments Results Result Comments Source POCT TEST 2023-02-06 13:20:00 Test Item Value Reference Range Interpretation Comme nts POCT PREG (test code = 1605) Negative On board controls acceptable with C Line (test code = 3574) Yes POCT PREG LOT # (test code = 3575) POCT PREG TEST DATE (test code = 3576) [id number] 13:20:00 Test Item Value Reference Range Interpretation Comments POCT PREG (test code = 1605) Negative On board controls acceptable with C Yes Line (test code = 3574) POCT PREG LOT # (test code = 3575) POCT PREG TEST DATE (test code = 3576) [facility]
[2023-07-17] MEDS ORDERED: dexAMETHasone 10 MG/ML VIAL ONE (23:38)
[2023-07-17] MEDS ORDERED: METOCLOPRAMIDE 10 MG/2mL INJ ONE (23:38)
[2023-07-17] MEDS ORDERED: DIPHENHYDRAMINE 50 MG/ML VIAL ONE (23:38)
[2023-07-17] MEDS ORDERED: NA CHLORIDE 0.9% 1,000 ML ONE (23:38)
[2023-07-17 23:39] LABS: Absolute Lymphocytes (CBC) 3.1 K/uL (0.7-4.9); Hematocrit 38.8 % (36.0-45.0); Lymphocytes % 32.7 % (15.3-44.8); MCV 87.2 fL (80-100); MPV 6.9 fL (7.6-11.3); Platelets 385 thou/uL (152-406); RBC Red Blood Cell Count 4.45 M/uL (3.86-4.86)
[2023-07-17 23:49] LABS: Albumin 3.1 g/dL (3.4-5.0); Bilirubin Total 0.2 mg/dL (0.2-1.0); Potassium 3.3 mEq/L (3.5-5.1); Protein, Total 7.2 g/dL (6.4-8.2)
[2023-07-18 00:48] LABS: Specific Gravity 1.015 (1.005-1.030)
[2023-07-18 00:51] LABS: Specific Gravity 1.015 (1.005-1.030); Urine Bacteria None Seen /HPF (<20); Urine Bilirubin NEGATIVE (Negative); Urine Blood 3+ (OVER) (Negative); Urine Clarity Extremely Turbid (Clear); Urine Color Colorless (Yellow); Urine Glucose NEGATIVE (Negative); Urine Mucus Slight /HPF (None Seen); Urine Protein 1+ (Negative); Urine RBC >50 /HPF (None Seen); Urine Urobilinogen Normal (Normal)
--- NOTE | 2023-07-18 01:16 | EDPHYS ---
Physician Documentation [facility] Name: Marisol Pond Age: 42 yrs Sex: Female : 1980 Arrival Date: 07/17/2023 Time: 22:55 Bed 15 Private MD: ED Physician Glenn Moody HPI: 07/17 23:11 This 42 yrs old Female presents to ER via Ambulatory with complaints of ec2 Headache, Nausea/Vomiting. 23:11 Patient arrives today due to concern for headache with associated nausea and vomiting. ec2 States that she ate some undercooked fish last night was having some stomach upset this afternoon and is not having headaches. Does report a history of migraines, states this feels similar but however worsened. Patient reports that she is been having multiple bouts of nausea and vomiting. Patient reports no head trauma or injury. Patient reports that she occasionally takes BC powder as well as Excedrin for migraines. Patient otherwise has been in normal state of health recently. No fevers or chills.. 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 - Social history:: Smoking status: Patient denies any tobacco usage or history of. ROS: 23:11 Constitutional: headache ec2 Exam: 23:11 Constitutional: GEN: NAD Head: atraumatic Eyes: EOMI Ears: External ears are ec2 normal. CV: regular rate LUNGS: no respiratory distress ABD: non-distended SKIN: no evidence of rashes MSK: no evidence of trauma NEURO: moves all extremities equally, cranial nerves II through XII intact, strength intact in all 4 extremities, appropriate gait. Vital Signs: 23:04 BP 136 / 98; Pulse 88; Resp 18; Temp 98(TE); Pulse Ox 100% ; Pain 10/10; kl 23:09 Weight 47.17 kg (R); Height 5 ft. 0 in. ; kl 23:09 Body Mass Index 20.31 (47.17 kg, 152.4 cm) kl 23:04 Pain Scale: Adult kl MDM: 23:02 Patient medically screened. ec2 23:11 ED course: Patient arrives today due to concern for headache with associated nausea and ec2 vomiting. Examination is remarkable for well-appearing nontoxic dividual was otherwise in no acute distress with a reassuring intact neurologic exam. Will obtain lab work, treat the patient's symptoms and reassess the patient. Currently considering migraine syndrome, nonspecific headache syndrome, electrolyte disturbances, dehydration, food poisoning. Clinically have a low index of suspicion for process such as intracranial brain bleed or intracranial mass.. 23:53 ED course: CBC is reassuring, metabolic profile with slight hypokalemia noted. Slightly ec2 diminished GFR. . 07/18 01:15 ED course: Urine is remarkable for infectious appearing urine. On reassessment patient ec2 with improving symptoms. Will discharge home with prescription for antibiotics. Return precautions given. . 01:17 Data reviewed: vital signs. ec2 07/17 23:10 Order name: CBC with Diff; Complete Time: 23:53 ec2 07/17 23:10 Order name: CMP; Complete Time: 23:53 ec2 07/17 23:10 Order name: Urinalysis w/ reflexes; Complete Time: 01:15 ec2 07/17 23:10 Order name: Test, Urine; Complete Time: 01:15 ec2 07/18 01:02 Order name: Urine Culture EDMS Administered Medications: 07/17 23:33 Drug: NS 0.9% IV 1000 ml IV at 1 bolus Per protocol; 1000 mL bolus Route: IV; Rate: 1 ap3 bolus; Site: right antecubital; 07/18 02:20 Follow up: IV Status: Completed infusion ap3 07/17 23:33 Drug: metoCLOPramide IVP 10 mg IVP once; over 1 to 2 minutes Route: IVP; Site: right ap3 antecubital; 07/18 00:26 Follow up: Response: No adverse reaction ap3 07/17 23:33 Drug: diphenhydrAMINE IVP 25 mg IVP once Route: IVP; Site: right antecubital; ap3 07/18 00:26 Follow up: Response: No adverse reaction ap3 07/17 23:33 Drug: Decadron - Dexamethasone IVP 10 mg IVP once Route: IVP; Site: right antecubital; ap3 07/18 00:26 Follow up: Response: No adverse reaction ap3 00:26 Follow up: Response: No adverse reaction ap3 02:20 Drug: Macrobid PO 100 mg PO once; administer with food Route: PO; ap3 02:20 Follow up: Response: No adverse reaction ap3 Disposition Summary: 07/18/23 01:16 Discharge Ordered Notes: Location: Home ec2 Condition: Stable ec2 Diagnosis - UTI/ Urinary tract infection, site not specified ec2 - Headache ec2 Discharge Instructions: - Discharge Summary Sheet ec2 - Urinary Tract Infection, Adult, [id number] ec2 Forms: - Medication Reconciliation Form ec2 - Thank You Letter ec2 - Antibiotic Education ec2 - Prescription Opioid Use ec2 - Patient Portal Instructions ec2 - Leadership Thank You Letter ec2 Prescriptions: - Macrobid 100 mg Oral capsule - take 1 capsule ORAL route every 12 hours for 7 days; 10 capsule; Refills: 0, ec2 Product Selection Permitted Signatures: Dispatcher [employer] Veronica Wade RN RN kl Prokisch, Amanda, RN RN ap3 Glenn Moody MD MD ec2 Corrections: (The following items were deleted from the chart) 07/17 23:13 23:11 ED course: Patient arrives today due to concern for headache with associated ec2 nausea and vomiting. Examination is remarkable for well-appearing nontoxic dividual was otherwise in no acute distress with a reassuring intact neurologic exam. Will obtain lab work, treat the patient's symptoms and reassess the patient. Currently considering migraine syndrome, nonspecific headache syndrome, electrolyte disturbances, dehydration, food poisoning.. ec2
--- NOTE | 2023-07-18 01:16 | ER ---
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 Coronavirus screen: Vaccine status: Patient reports receiving the 1st dose of the Covid vaccine. Ebola Screen: Patient negative for fever greater than or equal to 101.5 degrees Fahrenheit, and additional compatible Ebola Virus Disease symptoms. Initial Sepsis Screen: Does the patient meet any 2 criteria? No. Patient's initial sepsis screen is negative. Does the patient have a suspected source of infection?. Risk Assessment: Do you want to hurt yourself or someone else? Patient reports no desire to harm self or others. 23:04 Method Of Arrival: Ambulatory kl 23:04 Acuity: KOBY 3 kl 23:35 Onset of symptoms was July 17, 2023. ap3 Triage Assessment: 23:08 Headache History: The patient has had previous headaches and this one is similar to kl previous episodes. General: Appears uncomfortable, Behavior is cooperative. Pain: Pain currently is 10 out of 10 on a pain scale. Pain began gradually, Also complains of nausea. Neuro: No deficits noted. 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 - Social history:: Smoking status: Patient denies any tobacco usage or history of. Screenin:34 [facility] ED Fall Risk Assessment (Adult) History of falling in the last 3 months, ap3 including since admission No falls in past 3 months (0 pts). Abuse screen: Denies threats or abuse. Nutritional screening: No deficits noted. Tuberculosis screening: No symptoms or risk factors identified. Assessment: 23:33 General: Appears uncomfortable, Behavior is calm, cooperative, appropriate for age. ap3 Pain: Complains of pain in left frontal area and left temporal area Pain began gradually. Neuro: Level of Consciousness is awake, alert, obeys commands, Oriented to person, place, time. Cardiovascular: Patient's skin is warm and dry. Respiratory: Airway is patent Respiratory effort is even, unlabored, Respiratory pattern is regular, symmetrical. Vital Signs: 23:04 BP 136 / 98; Pulse 88; Resp 18; Temp 98(TE); Pulse Ox 100% ; Pain 10; kl 23:09 Weight 47.17 kg (R); Height 5 ft. 0 in. ; kl 23:09 Body Mass Index 20.31 (47.17 kg, 152.4 cm) kl 23:04 Pain Scale: Adult kl ED Course: 22:59 Patient arrived in ED. gm2 23:02 Glenn Moody MD is Attending Physician. ec2 23:07 Triage completed. kl 23:33 Initial lab(s) drawn, by me, sent to lab. Inserted saline lock: 20 gauge in right ap3 antecubital area, using aseptic technique. Blood collected. 23:34 Arm band placed on left wrist. ap3 23:35 Patient has correct armband on for positive identification. Bed in low position. Call ap3 light in reach. Side rails up X 1. Pulse ox on. NIBP on. Door closed. Noise minimized. 23:43 Tamiko Li, ROHAN is Primary Nurse. ap3 07/18 02:20 No provider procedures requiring assistance completed. IV discontinued. ap3 02:22 Provided Education on: discharge instructions. ap3 Administered Medications: 07/17 23:33 Drug: NS 0.9% IV 1000 ml IV at 1 bolus Per protocol; 1000 mL bolus Route: IV; Rate: 1 ap3 bolus; Site: right antecubital; 07/18 02:20 Follow up: IV Status: Completed infusion ap3 07/17 23:33 Drug: metoCLOPramide IVP 10 mg IVP once; over 1 to 2 minutes Route: IVP; Site: right ap3 antecubital; 07/18 00:26 Follow up: Response: No adverse reaction ap3 07/17 23:33 Drug: diphenhydrAMINE IVP 25 mg IVP once Route: IVP; Site: right antecubital; ap3 07/18 00:26 Follow up: Response: No adverse reaction ap3 07/17 23:33 Drug: Decadron - Dexamethasone IVP 10 mg IVP once Route: IVP; Site: right antecubital; ap3 07/18 00:26 Follow up: Response: No adverse reaction ap3 00:26 Follow up: Response: No adverse reaction ap3 02:20 Drug: Macrobid PO 100 mg PO once; administer with food Route: PO; ap3 02:20 Follow up: Response: No adverse reaction ap3 Medication: 00:22 VIS not applicable for this client. ap3 Outcome: 01:16 Discharge ordered by . ec2 02:21 Discharged to home ambulatory, ap3 02:21 Condition: good 02:21 Discharge instructions given to patient, Instructed on discharge instructions, follow up and referral plans. medication usage, Demonstrated understanding of instructions, follow-up care, medications, Prescriptions given X 1, 02:22 Patient left the ED. ap3 Signatures: Veronica Pierre RN RN kl Prokisch, Amanda, RN RN ap3 Glenn Moody MD MD ec2 Thais Galo [facility]
[2023-07-18] MEDS ORDERED: NITROFURAN MACRO 100 MG CAP PO ONE (02:17)
[2023-07-18 02:31] VITALS: BP 136/98; TEMP 98; O2SAT 100
== END 2023-07-18 02:22 | disposition home or self-care (01) ==
LOC: ER 22:55 → UNDOADMIN 07-18 03:24 → ERHOLD 07-18 03:24
DX: N39.0 Urinary tract infection, site not specified (principal); Z87.442 Personal history of urinary calculi
CPT/HCPCS: 96361; 87088; 85025; 81001; 87086; 36415; 81025; 80053; 96375; 96374; 99284; J2765; J1200; J1100; J7030

== ENCOUNTER → 2023-11-20 | Emergency (ER) | payer BC ==
[~2023-11-20] MED LIST: CEFTRIAXONE 1000 MG/VIAL ONE
[2023-11-20 13:58] LABS: Absolute Lymphocytes (CBC) 2.6 K/uL (0.7-4.9); Hematocrit 37.3 % (36.0-45.0); Lymphocytes % 42.6 % (15.3-44.8); MCV 88.2 fL (80-100); MPV 6.7 fL (7.6-11.3); Platelets 320 thou/uL (152-406); RBC Red Blood Cell Count 4.23 M/uL (3.86-4.86)
[2023-11-20 14:01] LABS: Specific Gravity > 1.030 (1.005-1.030); Urine Bacteria 20-50 /HPF (<20); Urine Bilirubin NEGATIVE (Negative); Urine Blood 1+ (Negative); Urine Clarity Extremely Turbid (Clear); Urine Color Light-Yellow (Yellow); Urine Glucose NEGATIVE (Negative); Urine Mucus 1+ /HPF (None Seen); Urine Protein TRACE (Negative); Urine RBC 21-50 /HPF (None Seen); Urine Urobilinogen Normal (Normal)
[2023-11-20 14:08] LABS: Albumin 3.4 g/dL (3.4-5.0); Bilirubin Total 0.3 mg/dL (0.2-1.0); Potassium 3.5 mEq/L (3.5-5.1); Protein, Total 7.7 g/dL (6.4-8.2)
[2023-11-20 14:27] LABS: Specific Gravity > 1.030 (1.005-1.030)
--- NOTE | 2023-11-20 15:42 | RAD REPORT ---
EXAM DESCRIPTION: CT - Abdomen Pelvis W Contrast - 11/20/2023 2:44 pm CLINICAL HISTORY: ABD PAIN COMPARISON: Abdomen Pelvis W Contrast dated 10/03/2023 TECHNIQUE: Thin cut axial CT imaging of the abdomen and pelvis was performed following intravenous a dministration of 100 mL Isovue 300. Multiplanar reformats were generated and reviewed. All CT scans are performed using dose optimization technique as appropriate and may include automated exposure control or mA/KV adjustment according to patient size. FINDINGS: No suspicious findings in the lung bases. The liver, spleen, adrenal glands, and pancreas show no suspicious findings. Gallbladder and biliary tree are also without suspicious finding. Staghorn calculus in the right renal pelvis and calyces again seen, resolved along the superior calyx . Moderate right pelvic caliceal dilation again seen with some areas of cortical thinning at the inte rpolar to lower pole region on the right. Right ureteral stent and right percutaneous nephrostomy tub e in place. Left kidney shows no abnormality. No dilated bowel loops or bowel wall thickening. No free air, fluid collections, or inflammatory stra nding. Mild posterior pelvic ascites. No hernia, mass or bulky lymphadenopathy. Bulky retroverted radha devin, with a subserosal fibroid at the fundus again seen. The urinary bladder is without significant f inding. No suspicious bony findings. IMPRESSION: Improving changes of right centra granulomatous pyelonephritis with stable staghorn calc ulus. Improved right superior caliceal dilation. Some areas of cortical thinning are seen along the i nterpolar and lower pole regions of the kidney. Right percutaneous nephrostomy and ureteral stent in satisfactory positions. Bulky retroverted fibroid uterus, and mild posterior pelvic ascites.
--- NOTE | 2023-11-20 16:07 | ER ---
Nurse's Notes [facility] Name: Marisol Pond Age: 43 yrs Sex: Female : 1980 Arrival Date: 11/20/2023 Time: 12:04 Bed DX5 Private MD: Diagnosis: UTI/ Urinary tract infection, site not specified Presentation: 11/20 12:45 Chief complaint: Patient states: Pt has very large right side kidney stone. Pt had tl4 episodes of urine stopping midstream. Pt is able to drain urine into nephrostomy bag. No blood noted. Pt states she has constant pressure and bloating. Coronavirus screen: At this time, the client does not indicate any symptoms associated with coronavirus-19. Ebola Screen: No symptoms or risks identified at this time. Initial Sepsis Screen: Does the patient meet any 2 criteria? No. Patient's initial sepsis screen is negative. Does the patient have a suspected source of infection? No. Patient's initial sepsis screen is negative. Risk Assessment: Do you want to hurt yourself or someone else? Patient reports no desire to harm self or others. Onset of symptoms was October 03, 2023. 12:45 Method Of Arrival: Ambulatory tl4 12:45 Acuity: KOBY 3 tl4 Triage Assessment: 12:51 General: Appears uncomfortable, Behavior is calm, cooperative. Pain: Complains of pain tl4 in low back. EENT: No deficits noted. No signs and/or symptoms were reported regarding the EENT system. Neuro: No deficits noted. Cardiovascular: No deficits noted. Respiratory: No deficits noted. GI: Reports lower abdominal pain, bloating, cramping. : Reports pain in lower back with urination, urine stream stops midstream, bladder spasms. Derm: No deficits noted. No signs and/or symptoms reported regarding the dermatologic system. Musculoskeletal: No deficits noted. No signs and/or symptoms reported regarding the musculoskeletal system. 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 - Social history:: Smoking status: Patient denies any tobacco usage or history of. Screenin:53 [facility] ED Fall Risk Assessment (Adult) History of falling in the last 3 months, tl4 including since admission No falls in past 3 months (0 pts) Confusion or Disorientation No (0 pts) Intoxicated or Sedated No (0 pts) Impaired Gait No (0 pts) Mobility Assist Device Used No (0 pt) Altered Elimination No (0 pt) Score/Fall Risk Level 0 - 2 = Low Risk Oriented to surroundings, Maintained a safe environment, Educated pt \T\ family on fall prevention, incl call for assistance when getting out of bed, Assessed \T\ reinforced patient's understanding of fall precautions, Provided non-skid footwear, Hourly rounding (assess needs \T\ fall precautionary measures) done, Used ambulatory aids as needed (educated on \T\ assisted with), Used gait belt as appropriate. Abuse screen: Denies threats or abuse. Denies injuries from another. Nutritional screening: No deficits noted. Tuberculosis screening: No symptoms or risk factors identified. Vital Signs: 12:45 BP 124 / 87; Pulse 106; Resp 16; Temp 98.5(O); Pulse Ox 100% on R/A; Weight 44.91 kg; tl4 Height 5 ft. 0 in. ; Pain 7/10; 16:24 BP 129 / 60; Pulse 71; Resp 18 S; Pulse Ox 98% on R/A; as6 12:45 Body Mass Index 19.33 (44.91 kg, 152.4 cm) tl4 12:45 Pain Scale: Adult tl4 ED Course: 12:43 Patient arrived in ED. tl4 12:49 Triage completed. tl4 12:50 Glenn Moody MD is Attending Physician. ec2 12:53 Arm band placed on right wrist. tl4 13:45 Inserted saline lock: 20 gauge in right antecubital area, using aseptic technique. as6 Blood collected. 14:46 CT Abd/Pelvis - IV Contrast Only In Process Unspecified. EDMS 16:23 Bed in low position. Call light in reach. Provided Education on: abx teaching, follow as6 up. 16:23 No provider procedures requiring assistance completed. IV discontinued, intact, as6 bleeding controlled, No redness/swelling at site. Pressure dressing applied. Administered Medications: 16:22 Drug: Rocephin IV 1 grams IV at calculated rate once; Given slow IV push per pharmacy as6 instructions Route: IV; Rate: calculated rate; Site: right antecubital; 16:23 Follow up: Response: No adverse reaction; IV Status: Completed infusion; IV Intake: [id number] Medication: 16:24 VIS not applicable for this client. as6 Intake: 16:23 IV: 10ml; Total: 10ml. as6 Outcome: 16:06 Discharge ordered by . [email or web address] 16:24 Discharged to home ambulatory, as6 16:24 Condition: stable 16:24 Discharge instructions given to patient, Instructed on discharge instructions, follow up and referral plans. medication usage, Demonstrated understanding of instructions, follow-up care, medications, Prescriptions given X 1, 16:25 Patient left the ED. as6 Signatures: Dispatcher [employer] Jonathon Garrison, RN RN as6 Glenn Moody MD MD ec2 Srinivasa Bowman RN RN tl4
--- NOTE | 2023-11-20 16:07 | EDPHYS ---
Physician Documentation [facility] Name: Marisol Pond Age: 43 yrs Sex: Female : 1980 Arrival Date: 11/20/2023 Time: 12:04 Bed DX5 Private MD: ED Physician Glenn Moody HPI: 11/20 13:25 This 43 yrs old Female presents to ER via Ambulatory with complaints of ec2 Urinary Problem. 13:25 Patient arrives today for evaluation of urinary complaints. Patient with previous ec2 staghorn calculi, previous ureteral issues, status post ureteral stenting, nephrostomy tube in place, arrives today for abdominal bloating. Also some increase in urination. No fevers or chills, no nausea or vomiting. 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 - Social history:: Smoking status: Patient denies any tobacco usage or history of. ROS: 13:25 Constitutional: as per hpi ec2 Exam: 13:25 Constitutional: GEN: NAD Head: atraumatic Eyes: EOMI Ears: External ears are ec2 normal. CV: regular rate LUNGS: no respiratory distress ABD: Minimally distended, soft, nontender, guarding, not rigid SKIN: no evidence of rashes MSK: no evidence of trauma NEURO: moves all extremities equally Vital Signs: 12:45 BP 124 / 87; Pulse 106; Resp 16; Temp 98.5(O); Pulse Ox 100% on R/A; Weight 44.91 kg; tl4 Height 5 ft. 0 in. ; Pain 7/10; 16:24 BP 129 / 60; Pulse 71; Resp 18 S; Pulse Ox 98% on R/A; as6 12:45 Body Mass Index 19.33 (44.91 kg, 152.4 cm) tl4 12:45 Pain Scale: Adult tl4 MDM: 12:50 Patient medically screened. ec2 13:25 Data reviewed: vital signs. ED course: Patient arrives today for evaluation of ec2 abdominal distention as well as urinary complaints. Will obtain lab work, CT imaging and urine studies. Evaluating for ureteral stent complications, UTI.. 14:24 ED course: CBC reassuring, metabolic profile with appropriate renal function. Urine is ec2 infectious appearing with leuk esterase present. . 16:04 ED course: CT imaging shows improved renal state. I will start the patient on ec2 antibiotics for urinary tract infection and have her follow with her primary care doctor. . 11/20 13:25 Order name: CBC with Diff; Complete Time: 14:24 ec2 11/20 13:25 Order name: CMP; Complete Time: 14:24 ec2 11/20 13:25 Order name: Lipase; Complete Time: 14:24 ec2 11/20 13:25 Order name: Urinalysis w/ reflexes; Complete Time: 14:24 ec2 11/20 14:24 Order name: Test, Urine; Complete Time: 14:37 ec2 11/20 13:25 Order name: CT Abd/Pelvis - IV Contrast Only; Complete Time: 16:04 ec2 11/20 13:25 Order name: IV Saline Lock; Complete Time: 13:45 ec2 11/20 13:25 Order name: Labs collected and sent; Complete Time: 13:45 ec2 Administered Medications: 16:22 Drug: Rocephin IV 1 grams IV at calculated rate once; Given slow IV push per pharmacy as6 instructions Route: IV; Rate: calculated rate; Site: right antecubital; 16:23 Follow up: Response: No adverse reaction; IV Status: Completed infusion; IV Intake: [id number] Disposition Summary: 11/20/23 16:06 Discharge Ordered Notes: Location: Home ec2 Condition: Stable ec2 Diagnosis - UTI/ Urinary tract infection, site not specified ec2 Followup: ec2 - With: Private Physician - When: - Reason: Re-evaluation by your physician Discharge Instructions: - Discharge Summary Sheet ec2 - Urinary Tract Infection, Adult, [id number] ec2 Forms: - Medication Reconciliation Form ec2 - Thank You Letter ec2 - Antibiotic Education ec2 - Prescription Opioid Use ec2 - Patient Portal Instructions ec2 - Leadership Thank You Letter ec2 Prescriptions: - Cephalexin 500 mg Oral capsule - take 1 capsule ORAL route every 8 hours for 10 days; 40 capsule; Refills: 0, ec2 Product Selection Permitted Signatures: Dispatcher [employer] Jonathon Garrison RN RN as6 Glenn Moody MD MD ec2 Srinivasa Bowman RN RN tl4
[2023-11-20 16:40] VITALS: BP 129/60; TEMP 98.5; O2SAT 98
== END ==
LOC: ER 12:04
DX: N39.0 Urinary tract infection, site not specified (principal); Z87.442 Personal history of urinary calculi
CPT/HCPCS: 85025; 81001; 36415; 81025; 83690; 80053; 74177; Q9967; J0696

== ENCOUNTER 2024-04-01 10:12 | Emergency (ER) | payer BC ==
--- NOTE | 2024-04-01 11:31 | RAD REPORT ---
EXAM DESCRIPTION: RAD - Abdomen 1 View (KUB) - 04/01/2024 11:24 am CLINICAL HISTORY: stent;Abd pain COMPARISON: ABDOMEN 1 VIEW KUB dated 11/07/2008 FINDINGS: Nonobstructive bowel gas pattern. No acute osseous abnormality.Visualized lungs are unrema rkable.No abnormal calcifications. Right ureteral stent. No ureteral calculi identified. Possible sma ll right renal calculi versus material within the fecal stream. . Moderate degenerative changes at th e pubic symphysis. IMPRESSION: Nonobstructive bowel gas pattern. Right ureteral stent.
--- NOTE | 2024-04-01 12:47 | EDPHYS ---
Physician Documentation [facility] Name: Marisol Pond Age: 43 yrs Sex: Female : 1980 Arrival Date: 04/01/2024 Time: 10:12 Bed 17 Private MD: ED Physician Robert Nuñez HPI: 04/01 12:39 This 43 yrs old Female presents to ER via Ambulatory with complaints of Stint itzel removal. 12:39 The patient presents with flank pain, urinary symptoms, frequency. Onset: The itzel symptoms/episode began/occurred 2 day(s) ago. Modifying factors: The symptoms are alleviated by nothing, the symptoms are aggravated by walking, urinating. Associated signs and symptoms: The patient has no apparent associated signs or symptoms. Severity of symptoms: At their worst the symptoms were mild, in the emergency department the symptoms are unchanged. Onset: The symptoms/episode began/occurred 1 day(s) ago. The patient is not sexually active. Historical: - Allergies: 10:18 No Known Allergies; ll1 - PMHx: 10:18 Anxiety; Kidney stones; Migraines; ll1 10:22 kidney problems; ll1 - PSHx: 10:22 kidney SX with stents; ll1 - Immunization history:: Adult Immunizations up to date. - Infectious Disease History:: Denies. - Social history:: Smoking status: Patient denies any tobacco usage or history of. ROS: 12:43 Constitutional: Negative for fever, chills, and weight loss, Eyes: Negative for injury, itzel pain, redness, and discharge, ENT: Negative for injury, pain, and discharge, Neck: Negative for injury, pain, and swelling, Cardiovascular: Negative for chest pain, palpitations, and edema, Respiratory: Negative for shortness of breath, cough, wheezing, and pleuritic chest pain, Abdomen/GI: Negative for abdominal pain, nausea, vomiting, diarrhea, and constipation, Back: Negative for injury and pain, MS/Extremity: Negative for injury and deformity, Skin: Negative for injury, rash, and discoloration, Neuro: Negative for headache, weakness, numbness, tingling, and seizure, Psych: Negative for depression, anxiety, suicide ideation, homicidal ideation, and hallucinations, Allergy/Immunology: Negative for hives, rash, and allergies, Endocrine: Negative for neck swelling, polydipsia, polyuria, polyphagia, and marked weight changes, Hematologic/Lymphatic: Negative for swollen nodes, abnormal bleeding, and unusual bruising, 12:43 : Positive for burning with urination, discomfort because of right double j stent, Exam: 12:43 Constitutional: This is a well developed, well nourished patient who is awake, alert, itzel and in no acute distress. Head/Face: Normocephalic, atraumatic. Eyes: Pupils equal round and reactive to light, extra-ocular motions intact. Lids and lashes normal. Conjunctiva and sclera are non-icteric and not injected. Cornea within normal limits. Periorbital areas with no swelling, redness, or edema. ENT: Nares patent. No nasal discharge, no septal abnormalities noted. Tympanic membranes are normal and external auditory canals are clear. Oropharynx with no redness, swelling, or masses, exudates, or evidence of obstruction, uvula midline. Mucous membranes moist. Neck: Trachea midline, no thyromegaly or masses palpated, and no cervical lymphadenopathy. Supple, full range of motion without nuchal rigidity, or vertebral point tenderness. No Meningismus. Chest/axilla: Normal chest wall appearance and motion. Nontender with no deformity. No lesions are appreciated. Cardiovascular: Regular rate and rhythm with a normal S1 and S2. No gallops, murmurs, or rubs. Normal PMI, no JVD. No pulse deficits. Respiratory: Lungs have equal breath sounds bilaterally, clear to auscultation and percussion. No rales, rhonchi or wheezes noted. No increased work of breathing, no retractions or nasal flaring. Abdomen/GI: Soft, non-tender, with normal bowel sounds. No distension or tympany. No guarding or rebound. No evidence of tenderness throughout. Back: No spinal tenderness. No costovertebral tenderness. Full range of motion. Female : Normal external genitalia. Skin: Warm, dry with normal turgor. Normal color with no rashes, no lesions, and no evidence of cellulitis. MS/ Extremity: Pulses equal, no cyanosis. Neurovascular intact. Full, normal range of motion. Neuro: Awake and alert, GCS 15, oriented to person, place, time, and situation. Cranial nerves II-XII grossly intact. Motor strength 5/5 in all extremities. Sensory grossly intact. Cerebellar exam normal. Normal gait. Psych: Awake, alert, with orientation to person, place and time. Behavior, mood, and affect are within normal limits. Vital Signs: 10:23 BP 126 / 75; Pulse 88; Resp 17; Temp 97.4; Pulse Ox 100% ; Weight 47.63 kg; Height 5 ll1 ft. 0 in. ; Pain 7/10; 13:05 BP 125 / 77; Pulse 81; Resp 16; Pulse Ox 100% ; bp 10:23 Body Mass Index 20.51 (47.63 kg, 152.4 cm) ll1 10:23 Pain Scale: Adult ll1 MDM: 10:15 Patient medically screened. itzel 12:44 Differential diagnosis: nonspecific abdominal pain, Ureterolithiasis. Data reviewed: [facility] vital signs, nurses notes, lab test result(s), radiologic studies, plain films. Consideration of Admission/Observation Escalation of care including admission/observation considered. I considered the following discharge prescriptions or medication management in the emergency department Medications were administered in the Emergency Department. See MAR. Independent interpretation of the following test(s) in the Emergency Department X-Ray: My interpretation is kub , right double j . Test considered but Not performed: Labs: no labs. Care significantly affected by the following chronic conditions: anxiety, kidney stones, migranes, staghorn . 04/01 12:38 Order name: Urinalysis w/ reflexes [facility] 04/01 12:38 Order name: PREGU; Complete Time: 13:01 [facility] 04/01 12:38 Order name: Urine Culture [facility] 04/01 10:28 Order name: Abdomen 1 View (KUB) XRAY; Complete Time: 11:52 [facility] Administered Medications: 13:04 Drug: LevOfloxacin PO 500 mg PO once Route: PO; bp 13:04 Drug: Rocephin (cefTRIAXone) IM 1 grams IM once Route: IM; Site: left gluteus; bp Disposition Summary: 04/01/24 12:46 Discharge Ordered Notes: Location: Home [facility] Problem: new itzel Symptoms: have improved itzel Condition: Stable itzel Diagnosis - UTI/ Urinary tract infection, site not specified - removal of right double j stent itzel Followup: itzel - With: Private Physician - When: 2 - 3 days - Reason: Recheck today's complaints, Continuance of care, Re-evaluation by your physician Discharge Instructions: - Discharge Summary Sheet itzel - Dysuria itzel - Urinary Tract Infection, Adult itzel - Urinary Tract Infection, Adult, [id number] [facility] Forms: - Medication Reconciliation Form itzel - Antibiotic Education itzel - Prescription Opioid Use itzel - Patient Portal Instructions [facility] - Leadership Thank You Letter [facility] Prescriptions: - levofloxacin 500 mg Oral tablet - take 1 tablet ORAL route once daily for 7 days; 7 tablet; Refills: 0, Product itzel Selection Permitted Signatures: Dispatcher [employer] Robert Spears MD MD cha Peltier, Brian, RN RN Soraya Meyer RN RN ll1
--- NOTE | 2024-04-01 12:47 | ER ---
Nurse's Notes [facility] Name: Marisol Pond Age: 43 yrs Sex: Female : 1980 Arrival Date: 04/01/2024 Time: 10:12 Bed 17 Private MD: Diagnosis: UTI/ Urinary tract infection, site not specified-removal of right double j stent Presentation: 04/01 10:23 Chief complaint: Patient states: Had kidney stent last Friday (vaginally). Would like ll1 us to remove it. Coronavirus screen: Client denies travel out of the [place] in the last 14 days. At this time, the client does not indicate any symptoms associated with coronavirus-19. Ebola Screen: Patient denies travel to an Ebola-affected area in the 21 days before illness onset. Initial Sepsis Screen: Does the patient meet any 2 criteria? No. Patient's initial sepsis screen is negative. Does the patient have a suspected source of infection? No. Patient's initial sepsis screen is negative. Risk Assessment: Do you want to hurt yourself or someone else? Patient reports no desire to harm self or others. Onset of symptoms was March 26, 2024. 10:23 Method Of Arrival: Ambulatory ll1 10:23 Acuity: KOBY 4 ll1 Triage Assessment: 10:24 General: Appears uncomfortable, Behavior is calm, cooperative, appropriate for age. ll1 Pain: Complains of pain in vaginal area Pain currently is 7 out of 10 on a pain scale. Quality of pain is described as crampy, uncomfortable. Neuro: No deficits noted. Cardiovascular: No deficits noted. Respiratory: No deficits noted. : Reports wanting kidney stent removed. Historical: - Allergies: 10:18 No Known Allergies; ll1 - PMHx: 10:18 Anxiety; Kidney stones; Migraines; ll1 10:22 kidney problems; ll1 - PSHx: 10:22 kidney SX with stents; ll1 - Immunization history:: Adult Immunizations up to date. - Infectious Disease History:: Denies. - Social history:: Smoking status: Patient denies any tobacco usage or history of. Screenin:04 [facility] ED Fall Risk Assessment (Adult) History of falling in the last 3 months, bp including since admission No falls in past 3 months (0 pts) Confusion or Disorientation No (0 pts) Intoxicated or Sedated No (0 pts) Impaired Gait No (0 pts) Mobility Assist Device Used No (0 pt) Altered Elimination No (0 pt) Score/Fall Risk Level 0 - 2 = Low Risk. Abuse screen: Denies threats or abuse. Denies injuries from another. Nutritional screening: No deficits noted. Tuberculosis screening: No symptoms or risk factors identified. Assessment: 13:04 Reassessment: DC ON HOLD PENDING UA RESULTS. bp Vital Signs: 10:23 BP 126 / 75; Pulse 88; Resp 17; Temp 97.4; Pulse Ox 100% ; Weight 47.63 kg; Height 5 ll1 ft. 0 in. ; Pain 7/10; 13:05 BP 125 / 77; Pulse 81; Resp 16; Pulse Ox 100% ; bp 10:23 Body Mass Index 20.51 (47.63 kg, 152.4 cm) ll1 10:23 Pain Scale: Adult ll1 ED Course: 10:14 Patient arrived in ED. ts1 10:15 Robert Nuñez MD is Attending Physician. itzel 10:17 Arm band placed on Patient placed in an exam room, on a stretcher. ll1 10:23 Raúl Tavares, RN is Primary Nurse. bp 10:24 Triage completed. ll1 11:26 Abdomen 1 View (KUB) XRAY In Process Unspecified. EDMS 13:04 Patient has correct armband on for positive identification. bp 13:05 Assisted provider with: URETHRAL STENT REMOVAL. Patient did not have IV access during bp this emergency room visit. 13:11 Provided Education on: N/A. bp Administered Medications: 13:04 Drug: LevOfloxacin PO 500 mg PO once Route: PO; bp 13:04 Drug: Rocephin (cefTRIAXone) IM 1 grams IM once Route: IM; Site: left gluteus; bp Medication: 13:12 VIS not applicable for this client. bp Outcome: 12:46 Discharge ordered by . itzel 13:11 Discharged to home ambulatory, with family, bp 13:11 Condition: stable 13:11 Discharge instructions given to patient, Instructed on discharge instructions, follow up and referral plans. medication usage, Demonstrated understanding of instructions, follow-up care, medications, Prescriptions given X 1, 13:12 Patient left the ED. bp Signatures: Dispatcher [employer] EDTN Robert Nuñez MD MD cha Peltier, Brian, RN RN bp Soraya Pierre, ROHAN RN ll1 Breanna Leger, HANS MAXWELL ts1
[2024-04-01] MEDS ORDERED: CEFTRIAXONE 1000 MG/VIAL ONE (12:54)
[2024-04-01] MEDS ORDERED: LIDOCAINE 1% MPF 5 ML VIAL ONE (12:55)
[2024-04-01] MEDS ORDERED: levoFLOXacin 250 MG TAB ONE (12:55)
[2024-04-01 13:00] LABS: Specific Gravity 1.019 (1.005-1.030)
[2024-04-01 13:02] LABS: Specific Gravity 1.019 (1.005-1.030); Sqamous Epithelial <5 /HPF (None Seen); Urine Bacteria <20 /HPF (<20); Urine Bilirubin NEGATIVE (Negative); Urine Blood 3+ (Negative); Urine Clarity Extremely Turbid (Clear); Urine Color Yellow (Yellow); Urine Culture Reflex Order REFLEXED; Urine Glucose NEGATIVE (Negative); Urine Ketones 1+ (Negative); Urine Microscopic Reflex YN ORDER UMIC; Urine Mucus 3+ /HPF (None Seen); Urine Nitrite NEGATIVE (Negative); Urine Protein 1+ (Negative); Urine RBC >50 /HPF (None Seen); Urine Urobilinogen Normal (Normal); Urine WBC 20-50 /HPF (<5); Urine Yeast (Budding) Trace /HPF (None Seen)
[2024-04-01 13:20] VITALS: BP 125/77; TEMP 97.4; O2SAT 100
== END 2024-04-01 13:12 | disposition home or self-care (01) ==
LOC: ER 10:12
DX: N39.0 Urinary tract infection, site not specified (principal); Z96.0 Presence of urogenital implants
CPT/HCPCS: 87088; 81001; 87086; 81025; 74018; 96372; 99284; J2001; J0696

== ENCOUNTER 2024-07-16 17:55 | Emergency (ER) | payer BC ==
[2024-07-16 19:58] LABS: Absolute Eosinophils 0.1 K/uL (0-0.5); Absolute Lymphocytes (CBC) 3.3 K/uL (0.7-4.9); Absolute Monocytes 0.6 K/uL (0.1-1.3); Absolute Neutrophil 4.3 K/uL (1.8-8.0); Basophils % 0.5 % (0-1.3); Eosinophils % 1.1 % (0-4.4); Hematocrit 41.4 % (36.0-45.0); Lymphocytes % 39.9 % (15.3-44.8); MCH 30.7 pg (27.0-35.0); MCHC 33.7 g/dL (32.0-36.0); MCV 91.1 fL (80-100); MPV 6.8 fL (7.6-11.3); Neutrophils % 51.5 % (41.7-73.7); Nucleated Red Blood Cells % 0.1 % (0-0); Platelets 293 thou/uL (152-406); RBC Red Blood Cell Count 4.55 M/uL (3.86-4.86); Red Cell Distribution Width 13.2 % (12.1-15.2)
[2024-07-16 20:16] LABS: Albumin 3.4 g/dL (3.4-5.0); Albumin/Globulin Ratio 0.9 (1.1-1.8); Anion Gap 8.5 mEq/L (5.0-15.0); Bilirubin Total 0.3 mg/dL (0.2-1.0); Globulin 3.8 g/dL (2.3-3.5); Potassium 3.5 mEq/L (3.5-5.1); Protein, Total 7.2 g/dL (6.4-8.2)
[2024-07-16 20:29] LABS: Specific Gravity 1.017 (1.005-1.030)
[2024-07-16 20:31] LABS: Specific Gravity 1.017 (1.005-1.030); Sqamous Epithelial <5 /HPF (None Seen); Urine Bacteria <20 /HPF (<20); Urine Bilirubin NEGATIVE (Negative); Urine Blood Trace (Negative); Urine Clarity Extremely Turbid (Clear); Urine Color Light-Yellow (Yellow); Urine Crystals Unidentified Few /HPF (None Seen); Urine Culture Reflex Order REFLEXED; Urine Glucose NEGATIVE (Negative); Urine Ketones NEGATIVE (Negative); Urine Microscopic Reflex YN ORDER UMIC; Urine Mucus Slight /HPF (None Seen); Urine Nitrite 2+ (Negative); Urine Protein TRACE (Negative); Urine Urobilinogen Normal (Normal); Urine WBC 20-50 /HPF (<5); Urine WBC Clump Rare /HPF (None Seen); Urine Yeast (Budding) Few /HPF (None Seen); Urine pH 6.5 (5.0-7.0)
[2024-07-16] MEDS ORDERED: CEPHALEXIN 250 MG CAP ONE (21:33)
[2024-07-16] MEDS ORDERED: PHENAZOPYRIDINE 100MG TAB PO ONE (21:33)
--- NOTE | 2024-07-16 21:35 | RAD REPORT ---
EXAMINATION: Stone Protocol CLINICAL INDICATION: Abdominal pain TECHNIQUE: CT abdomen and pelvis was performed, without IV contrast, as per department protocol. Oral contrast not given. Axial, sagittal and coronal reconstructions were obtained. One or more of the following dose reduction techniques were used: Automated exposure control, adjustment of the mA and k V according to the patient size, and iterative reconstruction. Unless otherwise specified, incidental findings do not require dedicated imaging follow-up. COMPARISON: October 2023 FINDINGS: The lack of intravenous and oral contrast limits the sensitivity of this exam for evaluation of solid visceral organs, vascular structures, and bowel Since the prior exam the right ureteral stent has been. Minimal hydronephrosis is present. Several ri ght renal calculi. One lies within the pelvis measuring 4 mm. Several small left renal calculi. No hydronephrosis. A ureteral calculus not seen. A Francis catheter is present within the bladder Left lobe of liver is prominent. spleen, pancreas and adrenals grossly normal No evidence of diverticulitis. Fibroid uterus. No adnexal mass noted. IMPRESSION: Removal of the right ureteral stent. 4 mm calculus within the right renal pelvis. Minimal right hydronephrosis.
--- NOTE | 2024-07-16 21:48 | EDPHYS ---
Physician Documentation [facility] Name: Jenna Pond Age: 43 yrs Sex: Female : 1980 Arrival Date: 07/16/2024 Time: 17:55 Bed 16 Private MD: ED Physician Estevan Austin HPI: 07/16 20:41 This 43 yrs old Female presents to ER via Ambulatory with complaints of Possible Kidney rt Stone, Urinary Problem. 20:41 Patient with significant history of kidney stones presents to the ED with recurrence of rt urinary retention. Patient states that she is only been able to pass a few drops of urine since this morning. She reports a suprapubic discomfort and swelling but denies any significant pain. Denies other acute complaints at this time, symptoms are moderate in severity, no other aggravating or alleviating factors.. 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 - Infectious Disease History:: Denies. - Social history:: Smoking status: unknown. - Family history:: not pertinent. ROS: 20:41 Constitutional: Negative for fever, chills, and weight loss, Cardiovascular: Negative rt for chest pain, palpitations, and edema, Respiratory: Negative for shortness of breath, cough, wheezing, and pleuritic chest pain, Abdomen/GI: Negative for abdominal pain, nausea, vomiting, diarrhea, and constipation, MS/Extremity: Negative for injury and deformity, Skin: Negative for injury, rash, and discoloration, Neuro: Negative for headache, weakness, numbness, tingling, and seizure, 20:41 : Positive for Urinary tension, negative for hematuria, Exam: 20:41 Constitutional: This is a well developed, well nourished patient who is awake, alert, rt and in no acute distress. Chest/axilla: Normal chest wall appearance and motion. Nontender with no deformity. No lesions are appreciated. Cardiovascular: Regular rate and rhythm with a normal S1 and S2. No gallops, murmurs, or rubs. Normal PMI, no JVD. No pulse deficits. Respiratory: Lungs have equal breath sounds bilaterally, clear to auscultation and percussion. No rales, rhonchi or wheezes noted. No increased work of breathing, no retractions or nasal flaring. Skin: Warm, dry with normal turgor. Normal color with no rashes, no lesions, and no evidence of cellulitis. MS/ Extremity: Pulses equal, no cyanosis. Neurovascular intact. Full, normal range of motion. Neuro: Awake and alert, GCS 15, oriented to person, place, time, and situation. Cranial nerves II-XII grossly intact. Motor strength 5/5 in all extremities. Sensory grossly intact. Cerebellar exam normal. Normal gait. 20:41 Abdomen/GI: Fullness, distention to the suprapubic region, no focal areas of tenderness, Vital Signs: 18:57 BP 142 / 117; Pulse 88; Resp 17; Temp 98; Pulse Ox 100% ; Weight 48.53 kg; Height 5 ft. ap3 0 in. 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 Oral contrast not given. Axial, sagittal and coronal reconstructions were obtained. One or more of the following dose reduction techniques were used: Automated exposure control, adjustment of the mA and kV according to the patient size, and iterative reconstruction. Unless otherwise specified, incidental findings do not require dedicated imaging follow-up. COMPARISON: October 2023 FINDINGS: The lack of intravenous and oral contrast limits the sensitivity of this exam for evaluation of solid visceral organs, vascular structures, and bowel Since the prior exam the right ureteral stent has been. Minimal hydronephrosis is present. Several right renal calculi. One lies within the pelvis measuring 4 mm. Several small left renal calculi. No hydronephrosis. A ureteral calculus not seen. A Francis catheter is present within the bladder Left lobe of liver is prominent. spleen, pancreas and adrenals grossly normal No evidence of diverticulitis. Fibroid uterus. No adnexal mass noted. IMPRESSION: Removal of the right ureteral stent. 4 mm calculus within the right renal pelvis. Minimal right hydronephrosis. . 23:17 Differential Diagnosis altered mental status, sepsis, flu, Urinary retention . Data sp4 reviewed: vital signs, nurses notes, lab test result(s), radiologic studies, CT scan. Consideration of Admission/Observation Escalation of care including admission/observation considered. 23:18 ED course: Patient requested Francis catheter removal prior to discharge. sp4 07/16 19:38 Order name: CBC with Diff; Complete Time: 21:19 rt 07/16 19:38 Order name: CMP; Complete Time: 21:19 rt 07/16 19:38 Order name: Lipase; Complete Time: 21:19 rt 07/16 19:38 Order name: Test, Urine; Complete Time: 21:19 rt 07/16 19:38 Order name: Urinalysis w/ reflexes; Complete Time: 21:19 rt 07/16 20:39 Order name: Urine Culture EDMS 07/16 19:45 Order name: Stone Protocol; Complete Time: 21:40 EDMS 07/16 19:38 Order name: IV Saline Lock; Complete Time: 20:05 rt 07/16 19:38 Order name: Labs collected and sent; Complete Time: 20:06 rt 07/16 19:38 Order name: Francis; Complete Time: 20:25 rt Administered Medications: 21:30 Drug: Cephalexin PO 500 mg PO once Route: PO; rg5 21:50 Follow up: Response: No adverse reaction rg5 21:30 Drug: Phenazopyridine PO 200 mg PO once Route: PO; rg5 21:50 Follow up: Response: No adverse reaction rg5 Disposition Summary: 07/16/24 21:47 Discharge Ordered Notes: Location: Home sp4 Problem: new sp4 Symptoms: have improved sp4 Condition: Stable sp4 Diagnosis - UTI/ Urinary tract infection, site not specified sp4 - Acute Cystitis, acute urinary retention, sp4 Followup: sp4 - With: Private Physician - When: 7 - 10 days - Reason: Recheck today's complaints Discharge Instructions: - Discharge Summary Sheet sp4 - Urinary Tract Infection, Adult, [id number] sp4 Forms: - Patient Portal Instructions sp4 Prescriptions: - Cephalexin 500 mg Oral Capsule - take 1 capsule ORAL route every 12 hours for 10 days; 20 capsule; Refills: 0, sp4 Product Selection Permitted - Pyridium 200 mg Oral Tablet - take 1 tablet ORAL route every 8 hours for 3 days; 9 tablet; Refills: 0, sp4 Product Selection Permitted Signatures: Dispatcher [employer] Tamiko Urban, RN RN ap3 Yan Bui MD MD rt Estevan Austin MD MD sp4 Nils Gardner RN RN rg5 Corrections: (The following items were deleted from the chart) 19:45 19:39 Abdomen Pelvis Wo Con+CT.RAD.BRZ ordered. EDMS EDMS
--- NOTE | 2024-07-16 21:48 | ER ---
Nurse's Notes [facility] Name: Marisol Pond Age: 43 yrs Sex: Female : 1980 Arrival Date: 07/16/2024 Time: 17:55 Bed 16 Private MD: Diagnosis: UTI/ Urinary tract infection, site not specified;Acute Cystitis, acute urinary retention, Presentation: 07/16 18:57 Chief complaint: Patient states: she has been unable to urinate since yesterday, ap3 07/15/24. patient has a hx of large kidney stones that have required surgical interventions. Coronavirus screen: At this time, the client does not indicate any symptoms associated with coronavirus-19. Ebola Screen: No symptoms or risks identified at this time. Initial Sepsis Screen: Does the patient meet any 2 criteria? No. Patient's initial sepsis screen is negative. Does the patient have a suspected source of infection? No. Patient's initial sepsis screen is negative. Risk Assessment: Do you want to hurt yourself or someone else? Patient reports no desire to harm self or others. Onset of symptoms was July 15, 2024. 18:57 Method Of Arrival: Ambulatory ap3 18:57 Acuity: KOBY 2 ap3 Triage Assessment: 18:59 General: Appears uncomfortable, Behavior is calm, cooperative, appropriate for age. ap3 Pain: Denies pain. Neuro: Level of Consciousness is awake, alert, obeys commands, Oriented to person, place, time, situation. Cardiovascular: Patient's skin is warm and dry. Respiratory: Airway is patent Respiratory effort is even, unlabored, Respiratory pattern is regular, symmetrical. GI: Abdomen is distended. : Reports inability to void. 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 - Infectious Disease History:: Denies. - Social history:: Smoking status: unknown. - Family history:: not pertinent. Screenin:00 [facility] ED Fall Risk Assessment (Adult) History of falling in the last 3 months, ap3 including since admission No falls in past 3 months (0 pts) Confusion or Disorientation No (0 pts) Intoxicated or Sedated No (0 pts) Impaired Gait No (0 pts) Mobility Assist Device Used No (0 pt) Altered Elimination No (0 pt) Score/Fall Risk Level 0 - 2 = Low Risk Oriented to surroundings, Maintained a safe environment, Educated pt \T\ family on fall prevention, incl call for assistance when getting out of bed, Assessed \T\ reinforced patient's understanding of fall precautions, Hourly rounding (assess needs \T\ fall precautionary measures) done, Used ambulatory aids as needed (educated on \T\ assisted with), Used gait belt as appropriate. Abuse screen: Denies threats or abuse. Nutritional screening: No deficits noted. Tuberculosis screening: No symptoms or risk factors identified. Assessment: 19:15 General: Appears in no apparent distress. comfortable, Behavior is calm, cooperative, rg5 appropriate for age. Pain: Denies pain. Neuro: Level of Consciousness is awake, alert, obeys commands, Oriented to person, place, time. Cardiovascular: Capillary refill < 3 seconds Patient's skin is warm and dry. Respiratory: Airway is patent Trachea midline Respiratory effort is even, unlabored, Respiratory pattern is regular, symmetrical. GI: Bowel sounds present X 4 quads. Abd is soft Reports cramping. : Reports cramping, inability to void. EENT: No deficits noted. Derm: Skin is intact, Skin is dry, Skin is normal, Skin temperature is cool. Musculoskeletal: Circulation, motion, and sensation intact. Range of motion: intact in all extremities. 20:00 Reassessment: Patient and/or family updated on plan of care and expected duration. Pain rg5 level reassessed. Patient is alert, oriented x 3, equal unlabored respirations, skin warm/dry/pink. 21:30 Reassessment: Patient and/or family updated on plan of care and expected duration. Pain rg5 level reassessed. Patient is alert, oriented x 3, equal unlabored respirations, skin warm/dry/pink. Patient states symptoms have improved. Vital Signs: 18:57 BP 142 / 117; Pulse 88; Resp 17; Temp 98; Pulse Ox 100% ; Weight 48.53 kg; Height 5 ft. ap3 0 in. ; 19:13 BP 131 / 91; Pulse 88; Resp 17; Temp 98(O); Pulse Ox 100% on R/A; Pain 0/10; rg5 21:28 BP 132 / 77; Pulse 82; Resp 17; Temp 98; Pulse Ox 96% on R/A; Pain 0/10; rg5 18:57 Body Mass Index 20.90 (48.53 kg, 152.4 cm) ap3 19:13 Pain Scale: Adult rg5 21:28 Pain Scale: Adult rg5 ED Course: 17:57 Patient arrived in ED. mr 17:58 Yan Bui MD is Attending Physician. rt 18:58 Triage completed. ap3 19:00 Arm band placed on right wrist. ap3 19:07 Nils Gardner, ROHAN is Primary Nurse. rg5 19:15 Allergy band placed. Bed in low position. Call light in reach. Side rails up X 1. Door rg5 closed. Noise minimized. Warm blanket given. Verbal reassurance given. 19:15 No provider procedures requiring assistance completed. rg5 19:35 Inserted saline lock: 20 gauge in right antecubital area, using aseptic technique. rg5 Blood collected. Flushed with 10 mL NS. 20:10 Francis cath inserted, using sterile technique, 16 Fr., by sd, balloon inflated, to rg5 gravity drainage, urine specimen collected. 20:16 Attending Physician role handed off by Yan Bui MD sp4 20:16 Estevan Austin MD is Attending Physician. sp4 20:56 Stone Protocol In Process Unspecified. EDMS 21:29 Awaiting radiology results. rg5 22:04 Provided Education on: POST ER CARE. rg5 22:04 IV discontinued, bleeding controlled, No redness/swelling at site. Pressure dressing rg5 applied. Administered Medications: 21:30 Drug: Cephalexin PO 500 mg PO once Route: PO; rg5 21:50 Follow up: Response: No adverse reaction rg5 21:30 Drug: Phenazopyridine PO 200 mg PO once Route: PO; rg5 21:50 Follow up: Response: No adverse reaction rg5 Medication: 19:15 VIS not applicable for this client. rg5 Outcome: 21:47 Discharge ordered by . sp4 22:04 Discharged to home ambulatory, rg5 22:04 Condition: stable 22:04 Discharge instructions given to patient, Instructed on discharge instructions, follow up and referral plans. Demonstrated understanding of instructions, follow-up care, medications, Prescriptions given X 2, 22:05 Patient left the ED. rg5 Signatures: Dispatcher [employer] EDAK UnderwoodSandrita soto, Reg Reg mr OpaljuliaTamiko, RN RN ap3 Yan Bui MD MD rt Potepalov, Sergey, MD MD sp4 Nils Gardner RN RN rg5
[2024-07-17 04:39] VITALS: TEMP 98
[2024-07-17 04:42] VITALS: BP 132/77; O2SAT 96
== END 2024-07-16 22:05 | disposition home or self-care (01) ==
LOC: ER 17:55
DX: N30.00 Acute cystitis without hematuria (principal); Z87.442 Personal history of urinary calculi
CPT/HCPCS: 36415; 51702; 74176; 76377; 80053; 81001; 81025; 83690; 85025; 87077; 87086; 87088; 87186; 99284

== ENCOUNTER 2024-12-22 06:39 | Emergency (ER) | payer BC ==
[2024-12-22] MEDS ORDERED: CEFTRIAXONE 1000 MG/VIAL ONE (08:06)
[2024-12-22] MEDS ORDERED: ONDANSETRON 4 MG/2 ML VIAL ONE (08:06)
[2024-12-22] MEDS ORDERED: KETOROLAC 30 MG/ML INJ ONE (08:07)
[2024-12-22] MEDS ORDERED: FAMOTIDINE 20 MG/2 ML VIAL IV ONE (08:07)
[2024-12-22] MEDS ORDERED: NA CHLORIDE 0.9% 1,000 ML ONE ×2 (08:07→09:30)
[2024-12-22] MEDS ORDERED: MORPHINE 4 MG/ML SYR ONE (08:07)
--- NOTE | 2024-12-22 08:36 | RAD REPORT ---
EXAMINATION: CT ABDOMEN AND PELVIS WITHOUT CONTRAST CLINICAL INDICATION: FLANK PAIN TECHNIQUE: CT abdomen and pelvis was performed, without IV contrast, as per department protocol. Axia l, sagittal and coronal reconstructions were obtained. One or more of the following dose reduction techniques were used: Automated exposure control, adjustment of the mA and kV according to the patien t size, and iterative reconstruction. Unless otherwise specified, incidental findings do not require dedicated imaging follow-up. COMPARISON: 07/16/2024 FINDINGS: The lack of intravenous contrast limits the sensitivity of this exam for evaluation of solid visceral organs, vascular structures, and retroperitoneum. LOWER CHEST: The visualized lung bases are clear. LIVER:Normal in size and contour. No focal lesion. Grossly unremarkable gallbladder. SPLEEN: Normal size. No focal lesion. PANCREAS: No mass, ductal dilation, or jose martin-pancreatic fluid. ADRENALS: Normal; no mass. KIDNEYS AND URETERS: Punctate calyceal calculi left kidney. No hydronephrosis. Moderate right hydrone phrosis and hydroureter is present caused by 7 mm stone distal third of the right ureter. Additional right nephrolithiasis is seen including 9 mm stone inferior calyx right kidney. URINARY BLADDER: Normal contour. GASTROINTESTINAL TRACT: No evidence of bowel obstruction, significant free fluid, free air or abscess . APPENDIX: Normal appendix. LYMPH NODES: No lymphadenopathy. MUSCULOSKELETAL: No acute or suspicious osseous abnormality. ADDITIONAL FINDINGS: None. IMPRESSION: 7 mm stone distal third right ureter with moderate right hydronephrosis. Additional bilateral nephrol ithiasis as detailed.
[2024-12-22 08:38] LABS: Absolute Eosinophils 0.1 K/uL (0-0.5); Absolute Lymphocytes (CBC) 2.4 K/uL (0.7-4.9); Absolute Monocytes 0.5 K/uL (0.1-1.3); Absolute Neutrophil 5.5 K/uL (1.8-8.0); Basophils % 0.4 % (0-1.3); Eosinophils % 1.2 % (0-4.4); Hematocrit 43.2 % (36.0-45.0); Hemoglobin 14.4 g/dL (12.0-15.0); Lymphocytes % 28.1 % (15.3-44.8); MCHC 33.4 g/dL (32.0-36.0); MCV 92.7 fL (80-100); MPV 6.9 fL (7.6-11.3); Monocytes % 5.4 % (3.3-12.3); Neutrophils % 64.9 % (41.7-73.7); Nucleated Red Blood Cells % 0.1 % (0-0); Platelets 335 thou/uL (152-406); RBC Red Blood Cell Count 4.66 M/uL (3.86-4.86); Red Cell Distribution Width 13.9 % (12.1-15.2)
[2024-12-22 08:43] LABS: Specific Gravity 1.013 (1.005-1.030)
[2024-12-22 08:51] LABS: Albumin 3.5 g/dL (3.4-5.0); Albumin/Globulin Ratio 0.9 (1.1-1.8); Anion Gap 9.7 mEq/L (5.0-15.0); Bilirubin Total 0.4 mg/dL (0.2-1.0); Globulin 4.1 g/dL (2.3-3.5); Potassium 3.7 mEq/L (3.5-5.1); Protein, Total 7.6 g/dL (6.4-8.2)
[2024-12-22 09:00] LABS: Specific Gravity 1.013 (1.005-1.030); Sqamous Epithelial <5 /HPF (None Seen); Transitional Epithelial <5 /HPF (None Seen); Urine Bacteria None Seen /HPF (<20); Urine Bilirubin NEGATIVE (Negative); Urine Blood 1+ (Negative); Urine Clarity Extremely Turbid (Clear); Urine Color Light-Yellow (Yellow); Urine Culture Reflex Order REFLEXED; Urine Glucose NEGATIVE (Negative); Urine Ketones NEGATIVE (Negative); Urine Microscopic Reflex YN ORDER UMIC; Urine Mucus Slight /HPF (None Seen); Urine Nitrite NEGATIVE (Negative); Urine Protein NEGATIVE (Negative); Urine Urobilinogen Normal (Normal); Urine WBC >50 /HPF (<5); Urine WBC Clump Rare /HPF (None Seen); Urine Yeast (Budding) Few /HPF (None Seen); Urine pH 6.5 (5.0-7.0)
--- NOTE | 2024-12-22 09:24 | EDPHYS ---
Physician Documentation [facility] Name: Marisol Pond Age: 44 yrs Sex: Female : 1980 Arrival Date: 12/22/2024 Time: 06:39 Bed 20 Private MD: CHIO Physician Robert Nuñez HPI: 12/22 07:34 This 44 yrs old Female presents to ER via Ambulatory with complaints of Low itzel Back Pain, Possible Kidney Stone. 07:34 The patient presents with pain that is acute, with no known mechanism of injury. The itzel symptoms are located in the right mid back and right low back. Historical: - Allergies: 06:56 No Known Allergies; br2 - PMHx: 06:56 Anxiety; kidney problems; Kidney stones; Migraines; br2 - Immunization history:: Adult Immunizations up to date. - Infectious Disease History:: Denies. - Social history:: Smoking status: Patient denies any tobacco usage or history of. Patient/guardian denies using alcohol, street drugs. ROS: 07:46 Constitutional: Negative for fever, chills, and weight loss, Eyes: Negative for injury, itzel pain, redness, and discharge, ENT: Negative for injury, pain, and discharge, Neck: Negative for injury, pain, and swelling, Cardiovascular: Negative for chest pain, palpitations, and edema, Respiratory: Negative for shortness of breath, cough, wheezing, and pleuritic chest pain, : Negative for injury, bleeding, discharge, and swelling, MS/Extremity: Negative for injury and deformity, Skin: Negative for injury, rash, and discoloration, Neuro: Negative for headache, weakness, numbness, tingling, and seizure, Psych: Negative for depression, anxiety, suicide ideation, homicidal ideation, and hallucinations, Allergy/Immunology: Negative for hives, rash, and allergies, Endocrine: Negative for neck swelling, polydipsia, polyuria, polyphagia, and marked weight changes, Hematologic/Lymphatic: Negative for swollen nodes, abnormal bleeding, and unusual bruising, 07:46 Abdomen/GI: Positive for abdominal cramps, of the posterior aspect of right lateral abdomen, anterior aspect of right lateral abdomen, right upper quadrant and right lower quadrant, Exam: 07:46 Constitutional: This is a well developed, well nourished patient who is awake, alert, itzel and in no acute distress. Head/Face: Normocephalic, atraumatic. Eyes: Pupils equal round and reactive to light, extra-ocular motions intact. Lids and lashes normal. Conjunctiva and sclera are non-icteric and not injected. Cornea within normal limits. Periorbital areas with no swelling, redness, or edema. ENT: Nares patent. No nasal discharge, no septal abnormalities noted. Tympanic membranes are normal and external auditory canals are clear. Oropharynx with no redness, swelling, or masses, exudates, or evidence of obstruction, uvula midline. Mucous membranes moist. Neck: Trachea midline, no thyromegaly or masses palpated, and no cervical lymphadenopathy. Supple, full range of motion without nuchal rigidity, or vertebral point tenderness. No Meningismus. Chest/axilla: Normal chest wall appearance and motion. Nontender with no deformity. No lesions are appreciated. Cardiovascular: Regular rate and rhythm with a normal S1 and S2. No gallops, murmurs, or rubs. Normal PMI, no JVD. No pulse deficits. Respiratory: Lungs have equal breath sounds bilaterally, clear to auscultation and percussion. No rales, rhonchi or wheezes noted. No increased work of breathing, no retractions or nasal flaring. Abdomen/GI: Soft, non-tender, with normal bowel sounds. No distension or tympany. No guarding or rebound. No evidence of tenderness throughout. Back: No spinal tenderness. No costovertebral tenderness. Full range of motion. Skin: Warm, dry with normal turgor. Normal color with no rashes, no lesions, and no evidence of cellulitis. MS/ Extremity: Pulses equal, no cyanosis. Neurovascular intact. Full, normal range of motion., bilateral aka Neuro: Awake and alert, GCS 15, oriented to person, place, time, and situation. Cranial nerves II-XII grossly intact. Motor strength 5/5 in all extremities. Sensory grossly intact. Cerebellar exam normal. Normal gait. Psych: Awake, alert, with orientation to person, place and time. Behavior, mood, and affect are within normal limits. Vital Signs: 06:52 BP 135 / 98; Pulse 94; Resp 18; Temp 97.2; Pulse Ox 100% on R/A; Weight 49.9 kg; Height br2 5 ft. 0 in. ; Pain 6/10; 08:43 BP 155 / 94; Pulse 105; Resp 18; Pulse Ox 97% on R/A; Pain 9/10; ld1 06:52 Body Mass Index 21.48 (49.90 kg, 152.4 cm) br2 06:52 Pain Scale: Adult br2 08:43 Pain Scale: Adult ld1 MDM: 07:05 Medical Screening Exam initiated itzel 07:47 Differential diagnosis: arthritis. Data reviewed: vital signs, nurses notes, lab test [facility] result(s), radiologic studies, CT scan. Consideration of Admission/Observation Escalation of care including admission/observation considered. I considered the following discharge prescriptions or medication management in the emergency department Medications were administered in the Emergency Department. See MAR. Care significantly affected by the following chronic conditions: ANXIETY, KIDNEY PROBLEMS, STONES, MIGRAINES. 12/22 07:06 Order name: CBC with Diff; Complete Time: 08:45 [facility] 12/22 07:06 Order name: CMP; Complete Time: 09:11 [facility] 12/22 07:06 Order name: Lipase; Complete Time: 09:11 [facility] 12/22 07:06 Order name: Test, Urine; Complete Time: 09:11 [facility] 12/22 07:06 Order name: Urinalysis w/ reflexes; Complete Time: 09:11 [facility] 12/22 09:04 Order name: Urine Culture [facility] 12/22 07:06 Order name: CT Stone Protocol; Complete Time: 08:45 [facility] 12/22 07:06 Order name: IV Saline Lock; Complete Time: 08:35 [facility] 12/22 07:06 Order name: Labs collected and sent; Complete Time: 08:35 [facility] Administered Medications: 08:35 Drug: Famotidine IVP 20 mg IVP once; dilute with 10 mL 0.9% NaCl; give over 2 minutes ld1 Route: IVP; Site: right antecubital; 08:35 Drug: Ondansetron IVP 4 mg IVP once; over 2 minutes Route: IVP; Site: right antecubital;ld1 08:35 Drug: NS 0.9% IV 1000 ml IV at 1 bolus Per protocol; to be given as a bolus over 60 ld1 minutes Route: IV; Rate: 1 bolus; Site: right antecubital; 08:35 Drug: Ketorolac IVP 30 mg IVP once Route: IVP; Site: right antecubital; ld1 08:35 Drug: Rocephin - Rocephin (cefTRIAXone) IVPB 1 grams IVPB once over 30 mins; (mix in 50 ld1 mL NS) Route: IVPB; Infused Over: 30 mins; Site: right antecubital; 08:36 Drug: morphine IVP or IV 4 mg IVP once over 4 mins Route: IVP; Infused Over: 4 mins; ld1 Site: right antecubital; 09:43 Drug: NS 0.9% IV 1000 ml IV at 1 bolus Per protocol; to be given as a bolus over 60 ld1 minutes Route: IV; Rate: 1 bolus; Site: right antecubital; 09:43 Drug: Ciprofloxacin PO 500 mg PO once Route: PO; ld1 09:43 Drug: Flomax PO 0.4 mg PO once Route: PO; ld1 Disposition Summary: 12/22/24 09:24 Discharge Ordered Notes: Location: Home itzel Problem: new itzel Symptoms: have improved itzel Condition: Stable itzel Diagnosis - Low back pain itzel - Hydronephrosis with renal and ureteral calculous obstruction itzel - UTI/ Urinary tract infection, site not specified itzel Followup: itzel - With: Private Physician - When: 2 - 3 days - Reason: Recheck today's complaints, Continuance of care, Re-evaluation by your physician Followup: itzel - With: Emilio Santos MD - When: 5 - 6 days - Reason: Recheck today's complaints, Re-evaluation by your physician Discharge Instructions: - Discharge Summary Sheet itzel - Acute Back Pain, Adult itzel - Kidney Stones itzel - Musculoskeletal Pain itzel - Urinary Tract Infection, Adult itzel - Kidney Stones, [id number] itzel - Urinary Tract Infection, Adult, [id number] itzel - Hydronephrosis itzel - Dietary Guidelines to Help Prevent Kidney Stones itzel Forms: - Medication Reconciliation Form itzel - Antibiotic Education itzel - Prescription Opioid Use itzle - Patient Portal Instructions itzel - Leadership Thank You Letter itzel - Work release form ll1 Prescriptions: - Flomax 0.4 mg Oral capsule - take 1 capsule ORAL route daily; 30 capsule; Refills: 0, Product Selection itzel Permitted - ketorolac 10 mg Oral tablet - take 1 tablet ORAL route every 6 hours for 3 days as needed for pain; do not itzel exceed 4 doses per 24 hrs; 12 tablet; Refills: 0, Product Selection Permitted - ondansetron 4 mg Oral Tablet,disintegrating - take 1 tablet ORAL route every 6-8 hours for 5 days PRN NAUSEA; 20 tablet; [facility] Refills: 0, Product Selection Permitted - Augmentin 875-125 mg Oral tablet - take 1 tablet ORAL route every 12 hours for 7 days; 14 tablet; Refills: 0, [facility] Product Selection Permitted - Cipro 500 mg Oral Tablet - take 1 tablet ORAL route every 12 hours for 7 days; 14 tablet; Refills: 0, [facility] Product Selection Permitted - Tylenol-Codeine #3 300mg-30mg Oral tablet - take 2 tablets ORAL route every 6 hours As needed; 20 tablet; Refills: 0, [facility] Product Selection Permitted Signatures: Dispatcher [employer] Robert Spears MD MD cha Sims, Lauren RN RN ld1 Leena Joshi RN RN br2
--- NOTE | 2024-12-22 09:24 | ER ---
Nurse's Notes [facility] Name: Marisol Pond Age: 44 yrs Sex: Female : 1980 Arrival Date: 12/22/2024 Time: 06:39 Bed 20 Private MD: Diagnosis: Low back pain;Hydronephrosis with renal and ureteral calculous obstruction;UTI/ Urinary tract infection, site not specified Presentation: 12/22 06:52 Chief complaint: Patient states: RIGHT FLANK PAIN...PT WENT TO AN URGENT CARE YESTERDAY br2 AND DX WITH UTI. PT STARTED CEFDINIR....C/O PRESSURE TO VAGINAL AREA. Coronavirus screen: Client denies travel out of the [place] in the last 14 days. Ebola Screen: Patient denies exposure to infectious person. Initial Sepsis Screen: Does the patient meet any 2 criteria? No. Patient's initial sepsis screen is negative. Does the patient have a suspected source of infection? No. Patient's initial sepsis screen is negative. Risk Assessment: Do you want to hurt yourself or someone else? Patient reports no desire to harm self or others. Onset of symptoms was December 18, 2024. 06:52 Method Of Arrival: Ambulatory br2 06:52 Acuity: KOBY 3 br2 Triage Assessment: 06:56 General: Appears uncomfortable, slender, Behavior is calm, cooperative, crying. Pain: br2 Complains of pain in right low back Pain radiates to right lower quadrant. 06:56 GI: Reports lower abdominal pain. br2 Historical: - Allergies: 06:56 No Known Allergies; br2 - PMHx: 06:56 Anxiety; kidney problems; Kidney stones; Migraines; br2 - Immunization history:: Adult Immunizations up to date. - Infectious Disease History:: Denies. - Social history:: Smoking status: Patient denies any tobacco usage or history of. Patient/guardian denies using alcohol, street drugs. Screenin:43 [facility] ED Fall Risk Assessment (Adult) History of falling in the last 3 months, ld1 including since admission No falls in past 3 months (0 pts) Confusion or Disorientation No (0 pts) Intoxicated or Sedated No (0 pts) Impaired Gait No (0 pts) Mobility Assist Device Used No (0 pt) Altered Elimination No (0 pt) Score/Fall Risk Level 0 - 2 = Low Risk Oriented to surroundings, Hourly rounding (assess needs \T\ fall precautionary measures) done. Abuse screen: Denies threats or abuse. Denies injuries from another. Nutritional screening: No deficits noted. Tuberculosis screening: No symptoms or risk factors identified. Assessment: 08:44 General: Appears in no apparent distress. uncomfortable, Behavior is calm, cooperative, ld1 appropriate for age. Pain: Complains of pain in right upper quadrant and right mid back and abdomen Pain does not radiate. Pain currently is 9 out of 10 on a pain scale. Quality of pain is described as throbbing, Pain began suddenly, Is continuous. Neuro: Level of Consciousness is awake, alert, obeys commands, Oriented to person, place, time, situation. Cardiovascular: Capillary refill < 3 seconds Patient's skin is warm and dry. Respiratory: Airway is patent Respiratory effort is even, unlabored. GI: Abdomen is flat, non-distended, Bowel sounds present X 4 quads. Abd is soft and non tender. : No signs and/or symptoms were reported regarding the genitourinary system. EENT: No signs and/or symptoms were reported regarding the EENT system. Derm: No signs and/or symptoms reported regarding the dermatologic system. Musculoskeletal: No signs and/or symptoms reported regarding the musculoskeletal system. 09:43 Reassessment: Discharge pending IV fluids. ld1 Vital Signs: 06:52 BP 135 / 98; Pulse 94; Resp 18; Temp 97.2; Pulse Ox 100% on R/A; Weight 49.9 kg; Height br2 5 ft. 0 in. ; Pain 6/10; 08:43 BP 155 / 94; Pulse 105; Resp 18; Pulse Ox 97% on R/A; Pain 9/10; ld1 06:52 Body Mass Index 21.48 (49.90 kg, 152.4 cm) br2 06:52 Pain Scale: Adult br2 08:43 Pain Scale: Adult ld1 ED Course: 06:41 Patient arrived in ED. [id number] 06:56 Triage completed. br2 06:56 Arm band placed on. br2 07:05 Robert Nuñez MD is Attending Physician. itzel 07:29 Patient placed in an exam room, on a stretcher. ll1 07:32 Holly Dorado RN is Primary Nurse. ld1 08:04 CT Stone Protocol In Process Unspecified. EDMS 08:35 Urinalysis w/ reflexes Sent. ld1 08:35 Test, Urine Sent. ld1 08:36 Inserted saline lock: 20 gauge in right antecubital area, using aseptic technique. ld1 Blood collected. Flushed with 10 mL NS. 08:43 Patient has correct armband on for positive identification. Placed in gown. Bed in low ld1 position. Call light in reach. Side rails up X2. Pulse ox on. NIBP on. Door closed. Noise minimized. Warm blanket given. 08:43 No provider procedures requiring assistance completed. ld1 09:23 Emilio aSntos MD is Referral Physician. itzel 11:16 IV discontinued, intact, bleeding controlled, No redness/swelling at site. ld1 Administered Medications: 08:35 Drug: Famotidine IVP 20 mg IVP once; dilute with 10 mL 0.9% NaCl; give over 2 minutes ld1 Route: IVP; Site: right antecubital; 08:35 Drug: Ondansetron IVP 4 mg IVP once; over 2 minutes Route: IVP; Site: right antecubital;ld1 08:35 Drug: NS 0.9% IV 1000 ml IV at 1 bolus Per protocol; to be given as a bolus over 60 ld1 minutes Route: IV; Rate: 1 bolus; Site: right antecubital; 08:35 Drug: Ketorolac IVP 30 mg IVP once Route: IVP; Site: right antecubital; ld1 08:35 Drug: Rocephin - Rocephin (cefTRIAXone) IVPB 1 grams IVPB once over 30 mins; (mix in 50 ld1 mL NS) Route: IVPB; Infused Over: 30 mins; Site: right antecubital; 08:36 Drug: morphine IVP or IV 4 mg IVP once over 4 mins Route: IVP; Infused Over: 4 mins; ld1 Site: right antecubital; :43 Drug: NS 0.9% IV 1000 ml IV at 1 bolus Per protocol; to be given as a bolus over 60 ld1 minutes Route: IV; Rate: 1 bolus; Site: right antecubital; :43 Drug: Ciprofloxacin PO 500 mg PO once Route: PO; ld1 09:43 Drug: Flomax PO 0.4 mg PO once Route: PO; ld1 Medication: 08:43 VIS not applicable for this client. ld1 Outcome: 09:24 Discharge ordered by . itzel 11:10 Discharged to home ambulatory, with family, ld1 11:10 Condition: stable 11:10 Discharge instructions given to patient, Instructed on discharge instructions, follow up and referral plans. medication usage, Demonstrated understanding of instructions, follow-up care, medications, Prescriptions given X 5 11:19 Patient left the ED. ld1 Signatures: Dispatcher [employer] EDMS Robert Nuñez MD MD cha Lewis, Lynsay, RN RN ll1 Holly Dorado RN RN ld1 Elen Jaimes [email or web address] Leena Joshi RN RN br2
[2024-12-22] MEDS ORDERED: TAMSULOSIN 0.4 MG SR CAP ONE (09:30)
[2024-12-22] MEDS ORDERED: CIPROFLOXACIN HCL 500 MG TAB ONE (09:38)
[2024-12-22 11:25] VITALS: TEMP 97.2
[2024-12-22 11:26] VITALS: BP 155/94; O2SAT 97
== END 2024-12-22 11:19 | disposition home or self-care (01) ==
LOC: ER 06:39
DX: N13.2 Hydronephrosis with renal and ureteral calculous obstruction (principal); N39.0 Urinary tract infection, site not specified; Z87.442 Personal history of urinary calculi
CPT/HCPCS: 87088; 85025; 81001; 87086; 36415; 81025; 83690; 80053; 76377; 74176; 96375; 96374; 99284; J2405; J7030 ×2; J0696

== ENCOUNTER 2024-12-29 19:27 | Emergency (ER) | payer BC ==
[2024-12-29 20:55] LABS: Absolute Basophils 0.1 K/uL (0-0.5); Absolute Eosinophils 0.2 K/uL (0-0.5); Absolute Lymphocytes (CBC) 2.4 K/uL (0.7-4.9); Absolute Monocytes 0.7 K/uL (0.1-1.3); Absolute Neutrophil 9.9 K/uL (1.8-8.0); Basophils % 0.5 % (0-1.3); Eosinophils % 1.6 % (0-4.4); Hematocrit 42.3 % (36.0-45.0); Hemoglobin 14.2 g/dL (12.0-15.0); Lymphocytes % 17.9 % (15.3-44.8); MCH 30.8 pg (27.0-35.0); MCHC 33.5 g/dL (32.0-36.0); Monocytes % 5.2 % (3.3-12.3); Neutrophils % 74.8 % (41.7-73.7); Nucleated Red Blood Cells % 0.1 % (0-0); Red Cell Distribution Width 13.2 % (12.1-15.2)
[2024-12-29 21:00] LABS: MPV 7.2 fL (7.6-11.3); Platelets 361 thou/uL (152-406)
[2024-12-29 21:04] LABS: Albumin 3.5 g/dL (3.4-5.0); Albumin/Globulin Ratio 0.8 (1.1-1.8); Anion Gap 7.8 mEq/L (5.0-15.0); Bilirubin Total 0.2 mg/dL (0.2-1.0); Globulin 4.2 g/dL (2.3-3.5); Potassium 3.8 mEq/L (3.5-5.1); Protein, Total 7.7 g/dL (6.4-8.2)
[2024-12-29] MEDS ORDERED: ONDANSETRON 4 MG/2 ML VIAL ONE (21:11)
[2024-12-29] MEDS ORDERED: MORPHINE 4 MG/ML SYR ONE (21:12)
[2024-12-29] MEDS ORDERED: NA CHLORIDE 0.9% 1,000 ML ONE ×2 (21:12→23:47)
[2024-12-29 21:19] LABS: Specific Gravity 1.018 (1.005-1.030); Sqamous Epithelial <5 /HPF (None Seen); Urine Bacteria <20 /HPF (<20); Urine Bilirubin NEGATIVE (Negative); Urine Blood 3+ (OVER) (Negative); Urine Clarity Extremely Turbid (Clear); Urine Color Dark-Yellow (Yellow); Urine Crystals Unidentified Few /HPF (None Seen); Urine Culture Reflex Order REFLEXED; Urine Glucose NEGATIVE (Negative); Urine Ketones NEGATIVE (Negative); Urine Microscopic Reflex YN ORDER UMIC; Urine Nitrite NEGATIVE (Negative); Urine Protein 3+ (Negative); Urine RBC >50 /HPF (None Seen); Urine Urobilinogen Normal (Normal); Urine WBC >50 /HPF (<5); Urine pH 6.5 (5.0-7.0)
[2024-12-29 22:11] LABS: Blood Morphology Comment NOT SEEN (NOT SEEN); Platelet Estimate ADEQ; White Blood Cell Scan OK (OK)
--- NOTE | 2024-12-29 22:11 | RAD REPORT ---
EXAMINATION: Stone Protocol CLINICAL INDICATION: Abdominal pain TECHNIQUE: CT abdomen and pelvis was performed, without IV contrast, as per department protocol. Oral contrast not given. Axial, sagittal and coronal reconstructions were obtained. One or more of the following dose reduction techniques were used: Automated exposure control, adjustment of the mA and k V according to the patient size, and iterative reconstruction. Unless otherwise specified, incidental findings do not require dedicated imaging follow-up. COMPARISON: November 2024 FINDINGS: The lack of intravenous and oral contrast limits the sensitivity of this exam for evaluation of solid visceral organs, vascular structures, and bowel Moderate to marked right hydronephrosis. Rounded low density area surrounding the calyces. Proximal, mid right ureter are dilated. 2 mm calculus right UPJ. 1 mm calculus right renal pelvis. 4 mm calculus lower pole right kidney. Within the mid to distal right ureter are several calculi measuring a couple millimeters. Tiny left renal calculi. No hydronephrosis. Liver, spleen, pancreas and adrenals grossly normal No evidence of diverticulitis. Subserosal fibroid is suspected. 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 Several small calcifications within the mid to distal right ureter. Additional right renal calculi as described above.
[2024-12-29] MEDS ORDERED: CEFTRIAXONE 1000 MG/VIAL ONE (22:37)
[2024-12-29] MEDS ORDERED: NA CHLORIDE 0.9% 50 ML ONE (22:38)
--- NOTE | 2024-12-29 22:51 | EDPHYS ---
Physician Documentation [facility] Name: Marisol Pond Age: 44 yrs Sex: Female : 1980 Arrival Date: 12/29/2024 Time: 19:27 Bed 13 Private MD: ED Physician Alexander Ash HPI: 12/29 22:51 This 44 yrs old Female presents to ER via Ambulatory with complaints of Post Surgical kb Pain. 22:51 Patient is a 44-year-old female with a history of kidney stones and pyelonephritis who kb presents for right flank pain that radiates to right groin that started today. States she was seen at [facility] on Friday and had 2 stones removed from the right side by Dr. Billings, her urologist. States he placed a stent and she was told to pull it out today. Patient reports she pulled out the stent in the shower today and has been having severe pain since then. States she has had to pull out his stent in the past and felt great after removal so this is completely different from past experience. Reports nausea and vomiting. Denies fever.. Historical: - Allergies: 20:04 No Known Allergies; iw - PMHx: 20:04 Anxiety; kidney problems; Kidney stones; Migraines; iw - PSHx: 20:04 kidney SX with stents; iw - Immunization history:: Adult Immunizations. - Infectious Disease History:: Denies. - Social history:: Smoking status: Patient denies any tobacco usage or history of. ROS: 22:50 Constitutional: As per HPI kb Exam: 22:50 Head/Face: Normocephalic, atraumatic. ENT: Moist Mucous membranes Cardiovascular: kb Regular rate Respiratory: Respirations even and unlabored. No increased work of breathing. Talking in full sentences Skin: Warm, dry with normal turgor. Normal color. MS/ Extremity: Pulses equal, no cyanosis. Neurovascular intact. Full, normal range of motion. Neuro: Awake and alert, GCS 15, oriented to person, place, time, and situation. 22:50 Constitutional: The patient appears alert, awake, obviously ill, 22:50 Abdomen/GI: Inspection: abdomen appears normal, Bowel sounds: normal, Palpation: moderate abdominal tenderness, in the right lower quadrant, 22:50 Back: CVA tenderness, that is moderate, is noted on the right, Vital Signs: 20:03 BP 158 / 114; Pulse 105; Resp 18; Pulse Ox 100% on R/A; Weight 49.9 kg; Height 5 ft. 0 iw in. ; 20:06 BP 158 / 89; iw 22:01 BP 117 / 72; Pulse 93; Resp 18; Temp 98.3; Pulse Ox 98% on R/A; jr13 23:00 BP 123 / 69; Pulse 98; Resp 18; Pulse Ox 96% on R/A; jr13 12/30 00:00 BP 124 / 84; Pulse 93; Resp 18; Pulse Ox 97% on R/A; ha1 00:59 BP 112 / 65; Pulse 86; Resp 18; Pulse Ox 96% on R/A; jr13 12/29 20:03 Body Mass Index 21.48 (49.90 kg, 152.4 cm) iw MDM: 12/29 19:45 Medical Screening Exam initiated kb 22:53 Differential diagnosis: UTI, Kidney stone, pyelonephritis. Data reviewed: vital signs, kb nurses notes. Consideration of Admission/Observation Escalation of care including admission/observation considered. Patient will be transferred to [facility] for continuity of care with her urologist Dr. Gómez. Counseling: I had a detailed discussion with the patient and/or guardian regarding the historical points, exam findings, and any diagnostic results supporting the discharge/admit diagnosis, lab results, radiology results, the need to transfer to another facility, [facility] does not immediately have the required specialist. 23:33 Management of patient was discussed with the following: Discussed case with roger Laboy pt's urologist at [facility]. Dr Billings recommends second liter of fluid, toradol and flomax. Pt can be discharged home if pain is controlled. Dr Billings said no intervention is needed at this time. ED course: Discussed Dr Billings's recommendation with pt. Pt in agreement with plan of care. Will call Dr Billings's office for follow up tomorrow. Pain controlled at this time. 12/29 20:13 Order name: CBC with Diff; Complete Time: 22:13 kb 12/29 20:13 Order name: CMP; Complete Time: 21:09 kb 12/29 20:13 Order name: Lipase; Complete Time: 21:09 kb 12/29 20:13 Order name: Urinalysis w/ reflexes; Complete Time: 21:28 kb 12/29 21:23 Order name: Urine Culture EDNE 12/29 22:11 Order name: CBC Smear Scan; Complete Time: 22:13 EDNE 12/29 22:16 Order name: Blood Culture Adult (2) kb 12/29 22:16 Order name: Lactate w/ 2H reflex if indic.; Complete Time: 23:09 kb 12/29 22:16 Order name: Protime (+inr); Complete Time: 23:05 kb 12/29 22:16 Order name: Ptt, Activated; Complete Time: 23:05 kb 12/29 20:13 Order name: CT Stone Protocol; Complete Time: 22:13 kb 12/29 20:13 Order name: IV Saline Lock; Complete Time: 21:07 kb 12/29 20:13 Order name: Labs collected and sent; Complete Time: 21:07 kb 12/29 22:16 Order name: Cardiac monitoring; Complete Time: 22:43 kb 12/29 22:16 Order name: Vital Signs; Complete Time: 22:43 kb Administered Medications: 21:15 Drug: NS 0.9% IV 1000 ml IV at 1 bolus Per protocol; to be given as a bolus over 60 ha1 minutes Route: IV; Rate: 1 bolus; Site: left antecubital; 22:30 Follow up: Response: No adverse reaction; IV Status: Completed infusion 13 21:17 Drug: Ondansetron IVP 4 mg IVP once; over 2 minutes Route: IVP; Site: right antecubital;ha1 21:45 Follow up: Response: No adverse reaction; Marked relief of symptoms 13 21:19 Drug: morphine IVP or IV 4 mg IVP once over 4 mins Route: IVP; Infused Over: 4 mins; ha1 Site: right antecubital; 21:45 Follow up: Response: No adverse reaction; Pain is decreased; RASS: Alert and Calm (0) jr13 22:43 Drug: Rocephin IV 1 grams IV at calculated rate once; Given slow IV push per pharmacy ha1 instructions Route: IV; Rate: calculated rate; Site: right antecubital; 23:00 Follow up: Response: No adverse reaction; IV Status: Completed infusion 13 23:57 Drug: Ketorolac IVP 15 mg IVP once Route: IVP; Site: left antecubital; ha1 12/30 01:01 Follow up: Response: No adverse reaction; Pain is decreased jr13 12/29 23:57 Drug: NS 0.9% IV 1000 ml IV at 1000 ml once; to be given as a bolus over 60 minutes ha Route: IV; Rate: 1000 ml; Site: left antecubital; 12/30 01:00 Follow up: Response: No adverse reaction; IV Status: Completed infusion jr13 12/29 23:57 Drug: Flomax PO 0.4 mg PO once Route: PO; ha1 12/30 01:00 Follow up: Response: No adverse reaction Disposition: 07:47 Co-signature as Attending Physician, Alexander Ash MD I reviewed the patient's care rn provided by the Advanced Practice Provider and agree with the diagnosis and treatment plan. Disposition Summary: 12/30/24 00:05 Discharge Ordered Notes: Location: Home kb Condition: Stable(12/30/24 00:05) kb Diagnosis - Calculus of kidney with calculus of ureter(12/30/24 00:05) kb - Other hydronephrosis(12/30/24 00:05) kb - Pyelonephritis acute(12/30/24 00:05) kb Followup: kb - With: Emergency Department - When: As needed - Reason: Worsening of condition Followup: kb - With: Private Physician - When: 2 - 3 days - Reason: Recheck today's complaints, Continuance of care, Re-evaluation by your physician Discharge Instructions: - Discharge Summary Sheet kb - Pyelonephritis, Adult, [id number] kb - Kidney Stones, [id number] kb Forms: - Medication Reconciliation Form kb - Antibiotic Education kb - Prescription Opioid Use kb - Patient Portal Instructions kb - Leadership Thank You Letter kb Prescriptions: - Flomax 0.4 mg Oral capsule - take 1 capsule ORAL route daily; 10 capsule; Refills: 0, Product Selection kb Permitted - Zofran 4 mg Oral tablet - take 1 tablet ORAL route every 6 hours As needed; 12 tablet; Refills: 0, kb Product Selection Permitted - Diclofenac Sodium 75 mg Oral tablet, delayed release (enteric coated) - take 1 tablet ORAL route 2 times per day As needed; 30 tablet; Refills: 0, kb Product Selection Permitted Signatures: Dispatcher [employer] Leslee Guzman FNP-C FNP-Ckb Lizeth Gardner, RN RN Alexander Henley MD MD rn Ayala, Heidy, RN RN ha1 Autumn Burgos RN jr13 Corrections: (The following items were deleted from the chart) 12/29 20:14 20:14 Stone Protocol+CT.RAD.BRZ ordered. EDMS EDMS 22:16 22:16 BLOOD CULTURE*+BA.LAB.BRZ ordered. EDMS EDMS 22:16 22:16 LACTATE+C.LAB.BRZ ordered. EDMS EDMS 22:16 22:16 PROTIME (+INR)+COAG.LAB.BRZ ordered. EDMS EDMS 22:16 22:16 PTT, ACTIVATED+COAG.LAB.BRZ ordered. EDMS EDMS 12/30 00:05 12/29 22:50 Dr kb kb 12/30 00:05 12/29 22:50 [facility] kb kb 12/30 00:05 12/29 22:50 Higher level of care kb kb 12/30 00:05 12/29 22:50 Stable kb kb 12/30 00:05 12/29 22:50 an ongoing problem kb kb 12/30 00:05 12/29 22:50 are unchanged kb kb 12/30 00:05 12/29 22:50 Other hydronephrosis kb kb 12/30 00:05 12/29 22:50 Pyelonephritis acute kb kb 12/30 00:05 12/29 22:50 Calculus of kidney with calculus of ureter kb kb
--- NOTE | 2024-12-29 22:51 | ER ---
Nurse's Notes [facility] Name: Marisol Pond Age: 44 yrs Sex: Female : 1980 Arrival Date: 12/29/2024 Time: 19:27 Bed 13 Private MD: Diagnosis: Calculus of kidney with calculus of ureter;Other hydronephrosis;Pyelonephritis acute Presentation: 12/29 20:00 Chief complaint: Chief complaint: Patient states: pulled her urethral stent out today iw and she is having a lot of pain in right flank now. 20:03 Coronavirus screen: At this time, the client does not indicate any symptoms associated iw with coronavirus-19. Ebola Screen: No symptoms or risks identified at this time. Initial Sepsis Screen: Does the patient meet any 2 criteria? HR > 90 bpm. Does the patient have a suspected source of infection? No. Patient's initial sepsis screen is negative. Risk Assessment: Do you want to hurt yourself or someone else? Patient reports no desire to harm self or others. Onset of symptoms. 20:03 Method Of Arrival: Ambulatory iw 20:03 Acuity: KOBY 3 iw Historical: - Allergies: 20:04 No Known Allergies; iw - PMHx: 20:04 Anxiety; kidney problems; Kidney stones; Migraines; iw - PSHx: 20:04 kidney SX with stents; iw - Immunization history:: Adult Immunizations. - Infectious Disease History:: Denies. - Social history:: Smoking status: Patient denies any tobacco usage or history of. Screenin/03 01:04 [facility] ED Fall Risk Assessment (Adult) History of falling in the last 3 months, jr13 including since admission No falls in past 3 months (0 pts) Confusion or Disorientation No (0 pts) Intoxicated or Sedated No (0 pts) Impaired Gait No (0 pts) Mobility Assist Device Used No (0 pt) Altered Elimination No (0 pt) Score/Fall Risk Level 0 - 2 = Low Risk Oriented to surroundings, Maintained a safe environment, Educated pt \T\ family on fall prevention, incl call for assistance when getting out of bed. Abuse screen: Denies threats or abuse. Denies injuries from another. Nutritional screening: No deficits noted. Tuberculosis screening: No symptoms or risk factors identified. Assessment: 12/29 21:15 Pain: Complains of pain in Right flank pain Pain radiates to pelvis Pain currently is 4 jr13 out of 10 on a pain scale. Quality of pain is described as. 21:15 General: Appears uncomfortable, Behavior is calm, cooperative. Neuro: No deficits jr13 noted. Level of Consciousness is awake, alert, obeys commands, Oriented to person, place, time, situation, Appropriate for age. Cardiovascular: No deficits noted. Capillary refill < 3 seconds Patient's skin is warm and dry. Respiratory: No deficits noted. Airway is patent Respiratory effort is even, unlabored, Respiratory pattern is regular, symmetrical. GI: No deficits noted. :. : Reports pain in right flank(s). Musculoskeletal:. 22:15 Reassessment: Patient and/or family updated on plan of care and expected duration. Pain jr13 level reassessed. Patient is alert, oriented x 3, equal unlabored respirations, skin warm/dry/pink. Pain is 3/10 Patient states feeling better. 23:10 Reassessment: Patient and/or family updated on plan of care and expected duration. Pain jr13 level reassessed. Patient is alert, oriented x 3, equal unlabored respirations, skin warm/dry/pink. 12/30 00:10 General: Discharge pending d/t completion of fluids. . jr13 00:59 Reassessment: Patient and/or family updated on plan of care and expected duration. Pain jr13 level reassessed. Patient is alert, oriented x 3, equal unlabored respirations, skin warm/dry/pink. Vital Signs: 12/29 20:03 BP 158 / 114; Pulse 105; Resp 18; Pulse Ox 100% on R/A; Weight 49.9 kg; Height 5 ft. 0 iw in. ; 20:06 BP 158 / 89; iw 22:01 BP 117 / 72; Pulse 93; Resp 18; Temp 98.3; Pulse Ox 98% on R/A; jr13 23:00 BP 123 / 69; Pulse 98; Resp 18; Pulse Ox 96% on R/A; 12/30 00:00 BP 124 / 84; Pulse 93; Resp 18; Pulse Ox 97% on R/A; ha1 00:59 BP 112 / 65; Pulse 86; Resp 18; Pulse Ox 96% on R/A; 12/29 20:03 Body Mass Index 21.48 (49.90 kg, 152.4 cm) ED Course: 12/29 19:29 Patient arrived in ED. im 19:44 Leslee Connelly [facility]-C [facility]. kb 19:44 Alexander Ash MD is Attending Physician. kb 20:00 Patient has correct armband on for positive identification. Placed in gown. Bed in low jr13 position. Call light in reach. Side rails up X 1. Adult w/ patient. 20:04 Triage completed. iw 20:04 Arm band placed on. iw 20:15 Autumn Burgos, RN is Primary Nurse. jr13 20:41 Initial lab(s) drawn, by me, sent to lab. Inserted saline lock: 22 gauge in left lg3 antecubital area, using aseptic technique. Blood collected. Flushed with 10 mL NS. 20:48 Urinalysis w/ reflexes Sent. rk3 21:08 Urinalysis w/ reflexes Sent. vc1 21:33 CT Stone Protocol In Process Unspecified. EDMS 22:30 First set of blood cultures drawn by ED staff, Second set of blood cultures drawn by ED ha1 staff. 22:43 Blood Culture Adult (2) Sent. ha1 22:43 Lactate w/ 2H reflex if indic. Sent. ha1 22:43 Protime (+inr) Sent. ha1 22:43 Ptt, Activated Sent. ha1 23:09 Initiated transfer with Chanelle at [facility] \T\[id number]. [id number] [facility] call back to say that [address] was at capacity and would not be able to accept the patient. Leslee Connelly IT COMPLIANCE ANALYST notified and requested to try [facility] [place]. 23:14 Called On-Call center for Dr. Praveen Billings for consult with Leslee Connelly NP. rv1 23:[address] Praveen Billings with Leslee Connelly IT COMPLIANCE ANALYST. rv1 23:28 Transfer cancelled per Leslee Connelly NP. Patient to follow up with Dr. Praveen Billings. rv1 03 01:05 No provider procedures requiring assistance completed. IV discontinued, intact, jr13 bleeding controlled, No redness/swelling at site. Pressure dressing applied. 01:06 Provided Education on: Follow up with urology. jr13 Administered Medications: 12/29 21:15 Drug: NS 0.9% IV 1000 ml IV at 1 bolus Per protocol; to be given as a bolus over 60 ha1 minutes Route: IV; Rate: 1 bolus; Site: left antecubital; 22:30 Follow up: Response: No adverse reaction; IV Status: Completed infusion 13 21:17 Drug: Ondansetron IVP 4 mg IVP once; over 2 minutes Route: IVP; Site: right antecubital;ha1 21:45 Follow up: Response: No adverse reaction; Marked relief of symptoms 13 21:19 Drug: morphine IVP or IV 4 mg IVP once over 4 mins Route: IVP; Infused Over: 4 mins; ha1 Site: right antecubital; 21:45 Follow up: Response: No adverse reaction; Pain is decreased; RASS: Alert and Calm (0) 13 22:43 Drug: Rocephin IV 1 grams IV at calculated rate once; Given slow IV push per pharmacy ha1 instructions Route: IV; Rate: calculated rate; Site: right antecubital; 23:00 Follow up: Response: No adverse reaction; IV Status: Completed infusion 13 23:57 Drug: Ketorolac IVP 15 mg IVP once Route: IVP; Site: left antecubital; ha1 12/30 01:01 Follow up: Response: No adverse reaction; Pain is decreased 12/29 23:57 Drug: NS 0.9% IV 1000 ml IV at 1000 ml once; to be given as a bolus over 60 minutes ha1 Route: IV; Rate: 1000 ml; Site: left antecubital; 12/30 01:00 Follow up: Response: No adverse reaction; IV Status: Completed infusion 13 12/29 23:57 Drug: Flomax PO 0.4 mg PO once Route: PO; ha1 12/30 01:00 Follow up: Response: No adverse reaction jr13 Medication: 01:09 VIS not applicable for this client. jr13 Outcome: 12/29 22:50 ER care complete, transfer ordered by MD. duran 12/30 00:05 Discharge ordered by MD. duran 01:06 Discharged to home ambulatory, jr13 01:06 Condition: stable 01:06 Discharge instructions given to patient, Instructed on discharge instructions, follow up and referral plans. medication usage, Demonstrated understanding of instructions, follow-up care, medications, Prescriptions given X 3, 01:10 Patient left the ED. jr13 Signatures: Dispatcher [employer] EDMS Leslee Connelly, QUALITY CONTROL CHECKER-C QUALITY CONTROL CHECKER-CkLizeth Bustamante, RN RN iw April Romero RN RN lg3 Carol Holliday RN RN vc1 Ashley Brower, RN RN ha1 Brooklynn Xie rv1 Michell Arriaga Rozana rk3 Autumn Burgos, RN RN jr13 Corrections: (The following items were deleted from the chart) 12/29 20:04 20:00 Chief complaint: [facility] 22:01 21:52 Pain: Complains of pain in Right flank pain Pain radiates to pelvis Pain jr13 currently is 4 out of 10 on a pain scale. jr13 12/30 01:02 01:02 Response: No adverse reaction; IV Status: Completed infusion jr13 jr13
[2024-12-29 22:58] LABS: PT Prothrombin Time 11.5 SECONDS (10-13.0); PTT, Activated Partial Thromb 27.5 SECONDS (27.2-37.4); Protime INR 1.01
[2024-12-29] MEDS ORDERED: KETOROLAC 30 MG/ML INJ ONE (23:42)
[2024-12-29] MEDS ORDERED: TAMSULOSIN 0.4 MG SR CAP ONE (23:47)
[2024-12-30 01:32] VITALS: TEMP 98.3
[2024-12-30 01:35] VITALS: BP 112/65; O2SAT 96
== END 2024-12-30 01:10 | disposition home or self-care (01) ==
LOC: ER 19:27
DX: N13.2 Hydronephrosis with renal and ureteral calculous obstruction (principal); N10 Acute pyelonephritis; Z95.828 Presence of other vascular implants and grafts; Z87.442 Personal history of urinary calculi
CPT/HCPCS: 87040 ×2; 87088; 85025; 81001; 87086; 36415; 85610; 83605; 85730; 83690; 80053; 76377; 74176; 99284; J2405; J7030 ×2; J0696

== ENCOUNTER 2025-07-01 17:35 | Inpatient (IN) | payer BC, OTHER ==
[2025-07-01 17:54] LABS: Absolute Lymphocytes (CBC) 3.2 K/uL (0.7-4.9); Hematocrit 40.5 % (36.0-45.0); Hemoglobin 13.7 g/dL (12.0-15.0); MCH 30.6 pg (27.0-35.0); MCHC 33.9 g/dL (32.0-36.0); MCV 90.4 fL (80-100); MPV 6.7 fL (7.6-11.3); Nucleated RBC Absolute Count 0.0 (0-0); Nucleated Red Blood Cells % 0.1 % (0-0); RBC Red Blood Cell Count 4.48 M/uL (3.86-4.86); White Blood Count 7.70 thou/uL (4.3-10.9)
[2025-07-01] MEDS ORDERED: LABETALOL 20 MG/4ML SYRINGE IV ONE (17:54)
--- NOTE | 2025-07-01 18:16 | RAD REPORT ---
EXAM: Chest Single View HISTORY: 44 years Female PALPITATIONS COMPARISON: No prior exams FINDINGS: LUNGS/PLEURA: The lungs are clear. No pleural effusions or pneumothorax. No pulmonary edema. CARDIAC/MEDIASTINUM: The cardiac silhouette is within normal limits. UPPER ABDOMEN: No significant abnormality. BONES: No acute abnormality. LINES/TUBES/OTHER: N/A IMPRESSION: No evidence of acute cardiopulmonary disease.
[2025-07-01 18:18] LABS: Anion Gap 9.8 mEq/L (5.0-15.0); BUN Blood Urea Nitrogen 11 mg/dL (7-18); Glucose Level 109 mg/dL (74-106); Potassium 3.8 mEq/L (3.5-5.1)
[2025-07-01 18:19] LABS: Albumin 2.7 g/dL (3.4-5.0); Albumin/Globulin Ratio 0.8 (1.1-1.8); Alkaline Phosphatase 50 U/L (45-117); Globulin 3.6 g/dL (2.3-3.5); Magnesium 2.0 mg/dL (1.6-2.4); NT PRO-BNP 82 pg/mL (<125)
[2025-07-01 18:25] LABS: ALT/SGPT < 14 U/L (13-56); AST/SGOT < 10 U/L (15-37); Bilirubin Indirect, Calculated 0.0 mg/dL (0.2-0.8); Thyroid Stimulating Hormone 4.830 uIU/mL (0.358-3.740)
[2025-07-01 18:26] LABS: Troponin High Sensitivity 97.5 pg/mL (<58.9)
[2025-07-01 18:29] LABS: PT Prothrombin Time 11.0 SECONDS (10-13.0); Protime INR 0.97
[2025-07-01] MEDS ORDERED: NA CHLORIDE 0.9% 1,000 ML ONE (18:30)
[2025-07-01 18:37] LABS: D-Dimer < 0.215 FEUug/mL (0-0.500)
[2025-07-01] MEDS ORDERED: KETOROLAC 30 MG/ML INJ ONE (18:52)
[2025-07-01] MEDS ORDERED: ASPIRIN 81 MG CHEWABLE TABLET ONE (19:35)
[2025-07-01] MEDS ORDERED: MORPHINE 2 MG/ML SYR ONE (19:35)
--- NOTE | 2025-07-01 19:48 | ER ---
Nurse's Notes [facility] Name: Marisol Pond Age: 44 yrs Sex: Female : 1980 Arrival Date: 07/01/2025 Time: 17:30 Bed 4 Private MD: Diagnosis: Tachycardia, unspecified;Abnormal levels of other serum enzymes Presentation: 07/01 17:41 Chief complaint: EMS states: Toned out for SVT, gave 12mg Adenosine given in route. jl7 Coronavirus screen: At this time, the client does not indicate any symptoms associated with coronavirus-19. Ebola Screen: No symptoms or risks identified at this time. Initial Sepsis Screen: Does the patient meet any 2 criteria? No. Patient's initial sepsis screen is negative. Does the patient have a suspected source of infection? No. Patient's initial sepsis screen is negative. Risk Assessment: Do you want to hurt yourself or someone else? Patient reports no desire to harm self or others. Onset of symptoms is unknown. 17:41 Method Of Arrival: Ambulatory jl 17:41 Acuity: KOBY 2 jl7 17:41 Care prior to arrival: Medication(s) given: Adenosine, 12 mg, x 1, IV initiated. 20 GA, jl7 in the right antecubital area. Triage Assessment: 17:49 General: Appears in no apparent distress. uncomfortable, Behavior is calm, cooperative, jl7 appropriate for age. Pain: Denies pain. Neuro: Root Agitation-Sedation Scale (RASS): 0 - Alert and Calm Level of Consciousness is awake, alert, obeys commands, Oriented to person, place, time, situation. Cardiovascular: Patient's skin is warm and dry. Respiratory: Airway is patent Respiratory effort is even, unlabored, Respiratory pattern is regular, symmetrical. Derm: Skin is pink, warm \T\ dry. 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 - Infectious Disease History:: Denies. - Social history:: Smoking status: Patient denies any tobacco usage or history of. Screenin:00 [facility] ED Fall Risk Assessment (Adult) History of falling in the last 3 months, jl7 including since admission No falls in past 3 months (0 pts) Confusion or Disorientation No (0 pts) Intoxicated or Sedated No (0 pts) Impaired Gait No (0 pts) Mobility Assist Device Used No (0 pt) Altered Elimination No (0 pt) Score/Fall Risk Level 0 - 2 = Low Risk Oriented to surroundings, Maintained a safe environment. Abuse screen: Denies threats or abuse. Denies injuries from another. Nutritional screening: No deficits noted. Tuberculosis screening: No symptoms or risk factors identified. Assessment: 17:30 General: see triage. jl7 19:14 Reassessment: Patient and/or family updated on plan of care and expected duration. Pain kb4 level reassessed. Patient is alert, oriented x 3, equal unlabored respirations, skin warm/dry/pink. pt is having residual chest tenderness and tightness, denies the need for any more pain medicine, vitals stable. General: Appears in no apparent distress. comfortable. Pain: Complains of pain in chest Pain does not radiate. 21:09 Reassessment: Patient and/or family updated on plan of care and expected duration. Pain kb4 level reassessed. Patient is alert, oriented x 3, equal unlabored respirations, skin warm/dry/pink. 22:30 Reassessment: Patient and/or family updated on plan of care and expected duration. Pain kb4 level reassessed. Patient is alert, oriented x 3, equal unlabored respirations, skin warm/dry/pink. 22:32 Reassessment: report faxed to 4th floor. kb4 Vital Signs: 17:41 BP 145 / 104; Pulse 125; Resp 15; Temp 97; Pulse Ox 100% ; Pain 0/10; jl7 18:00 BP 118 / 89; Pulse 121; Resp 17; Pulse Ox 100% ; jl7 18:30 BP 109 / 81; Pulse 113; Resp 15; Pulse Ox 99% ; jl7 19:17 BP 124 / 83; Pulse 107; Resp 18; Pulse Ox 100% on R/A; kb4 21:10 BP 119 / 94; Pulse 108; Resp 18; Pulse Ox 100% on R/A; kb4 21:45 BP 122 / 87; Pulse 108; Resp 18; Pulse Ox 98% on R/A; kb4 22:33 BP 118 / 87; Pulse 104; Resp 18; Pulse Ox 99% on R/A; kb4 17:41 Pain Scale: Adult jl7 ED Course: 17:30 Patient arrived in ED. eb 17:31 Robert Win PA-C is PHCP. cp 17:31 Ricky Caballero MD is Attending Physician. cp 17:37 Oz Galicia, ROHAN is Primary Nurse. jl7 17:42 Triage completed. jl7 17:51 Arm band placed on right wrist. jl7 17:51 Initial lab(s) drawn, by me, sent to lab. EKG done, by ED staff, reviewed by Robert collins PA-C. Maintain EMS IV. Dressing intact. Good blood return noted. Site clean \T\ dry. Gauge \T\ site: 20 Right AC. Flushed with 10 mL NS. 18:00 Patient has correct armband on for positive identification. Placed in gown. Bed in low jl7 position. Call light in reach. Side rails up X2. Provided Education on: use of call blair. Client placed on continuous cardiac and pulse oximetry monitoring. NIBP monitoring applied. ham curer on. Pulse ox on. 18:12 XRAY Chest (1 view) In Process Unspecified. EDMS 19:31 Primary Nurse role handed off by Oz Galicia, ROHAN vk 19:43 Lukas Carrington DO is Attending Physician. cp 19:47 Cesar Maya, RN is Hospitalizing Provider. cp 19:49 Fatou Perez, ROHAN is Primary Nurse. kb4 22:34 No provider procedures requiring assistance completed. Patient admitted, IV remains in kb4 place. Administered Medications: 18:04 Drug: Labetalol IV 10 mg IV at calculated rate once over 2 mins; For SBP greater than jl7 140. Hold for HR less than 60, notify provider. Route: IV; Rate: calculated rate; Infused Over: 2 mins; Site: right antecubital; 18:06 Follow up: Response: No adverse reaction; IV Status: Completed infusion jl7 18:30 Follow up: Response: Cardiac rhythm changed jl7 18:35 Drug: NS 0.9% IV 1000 ml IV at 1000 ml once; to be given as a bolus over 120 minutes ap3 Route: IV; Rate: 1000 ml; Site: right antecubital; 19:37 Not Given (Patient Refused): morphineor iv 2 mg IVP once over 4 mins kb4 19:37 Not Given (Patient Refused): aspirinchewable tablet 324 mg PO once; 81 mg tablets x 4 kb4 19:49 Drug: Aspirin PO Chewable Tablet 324 mg PO once; 81 mg tablets x 4 Route: PO; kb4 21:08 Follow up: Response: No adverse reaction kb4 19:49 Drug: morphine IVP or IV 2 mg IVP once over 4 mins Route: IVP; Infused Over: 4 mins; kb4 Site: right antecubital; 21:08 Follow up: Response: No adverse reaction kb4 19:59 Drug: GI Cocktail without - (Maalox PO 30 ml, Lidocaine Mucous Membrane 2 % 15 kb4 ml) PO once Route: PO; 21:09 Follow up: Response: No adverse reaction kb4 Medication: 18:00 VIS not applicable for this client. jl7 Outcome: 19:48 Decision to Hospitalize by Provider. cp 22:34 Admitted to Med/surg accompanied by tech, via wheelchair, with chart, kb4 22:34 Condition: stable 22:34 Instructed on the need for admit, Demonstrated understanding of instructions, 22:35 Patient left the ED. kb4 Signatures: Dispatcher [employer] EDMS Robert Win PA-C PA-C cp Leal, Jahala RN RN jl7 Tamiko Li RN RN ap3 Carisa Miguel Vivian vk Bowen, Kayla, RN RN kb4
--- NOTE | 2025-07-01 19:48 | EDPHYS ---
Physician Documentation [facility] Name: Marisol Pond Age: 44 yrs Sex: Female : 1980 Arrival Date: 07/01/2025 Time: 17:30 Bed 4 Private MD: ED Physician Lukas Carrington HPI: 07/01 17:40 This 44 yrs old Female presents to ER via Unassigned with complaints of Palpitations. cp 17:40 The patient presents with a history of heart racing. cp 17:40 Context: The symptoms occur at rest. cp 17:40 Patient is a 44-year-old female with past medical history significant for anxiety who cp presents to the emergency department with reported palpitations. Patient presents via EMS after reportedly being in SVT upon their arrival. Patient reports earlier this afternoon she bent over to pick something up and as she stood up she started immediately having feeling of her heart racing that lasted for several hours before calling EMS. Patient reports she never really had any chest pain and denies any syncope and/or near syncope. 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 - Infectious Disease History:: Denies. - Social history:: Smoking status: Patient denies any tobacco usage or history of. ROS: 17:45 Constitutional: Negative for body aches, chills, fever, poor PO intake, cp 17:45 Eyes: Negative for injury, pain, redness, and discharge, cp 17:45 ENT: Negative for drainage from ear(s), ear pain, sore throat, difficulty swallowing, difficulty handling secretions, 17:45 Cardiovascular: Positive for palpitations, Negative for chest pain, edema, 17:45 Respiratory: Negative for cough, shortness of breath, wheezing, 17:45 Abdomen/GI: Negative for abdominal pain, vomiting, diarrhea, constipation, 17:45 Back: Negative for pain at rest, pain with movement, 17:45 Neuro: Negative for altered mental status, syncope, near syncope, 17:45 All other systems are negative, Exam: 17:43 ECG was reviewed by the Attending Physician. cp 17:50 Constitutional: The patient appears in no acute distress, alert, awake, cp non-diaphoretic, non-toxic, well developed, well nourished, 17:50 Head/Face: Normocephalic, atraumatic. cp 17:50 Eyes: Periorbital structures: appear normal, Conjunctiva: normal, no exudate, no injection, Sclera: no appreciated abnormality, Lids and lashes: appear normal, bilaterally, 17:50 ENT: External ear(s): are unremarkable, Nose: is normal, Mouth: Lips: moist, Oral mucosa: moist, Posterior pharynx: Airway: no evidence of obstruction, patent, 17:50 Neck: ROM/movement: is normal, is supple, without pain, no range of motions limitations, 17:50 Chest/axilla: Inspection: normal, Palpation: is normal, no crepitus, no tenderness, 17:50 Cardiovascular: Rate: tachycardic, Rhythm: regular, Edema: is not appreciated, JVD: is not appreciated, 17:50 Respiratory: the patient does not display signs of respiratory distress, Respirations: normal, no use of accessory muscles, no retractions, labored breathing, is not present, Breath sounds: are clear throughout, no decreased breath sounds, no stridor, no wheezing, 17:50 Abdomen/GI: Inspection: abdomen appears normal, Palpation: abdomen is soft and non-tender, 17:50 Back: pain, is absent, ROM is normal, 17:50 Neuro: Orientation: to person, place \T\ time. Mentation: is normal, Cerebellar function: is grossly normal, Motor: moves all fours, strength is normal, Sensation: is normal, 19:41 ECG was reviewed by the Attending Physician. cp Vital Signs: 17:41 BP 145 / 104; Pulse 125; Resp 15; Temp 97; Pulse Ox 100% ; Pain 0/10; jl7 18:00 BP 118 / 89; Pulse 121; Resp 17; Pulse Ox 100% ; jl7 18:30 BP 109 / 81; Pulse 113; Resp 15; Pulse Ox 99% ; jl7 19:17 BP 124 / 83; Pulse 107; Resp 18; Pulse Ox 100% on R/A; kb4 21:10 BP 119 / 94; Pulse 108; Resp 18; Pulse Ox 100% on R/A; kb4 21:45 BP 122 / 87; Pulse 108; Resp 18; Pulse Ox 98% on R/A; kb4 22:33 BP 118 / 87; Pulse 104; Resp 18; Pulse Ox 99% on R/A; kb4 17:41 Pain Scale: Adult jl7 MDM: 17:38 Medical Screening Exam initiated cp 18:07 Independent interpretation of the following test(s) in the Emergency Department EKG: cp See my EKG interpretation above X-Ray: My interpretation is chest xray negative for infiltrates. 19:45 Data reviewed: vital signs, nurses notes, lab test result(s), EKG, radiologic studies, cp plain films, I have discussed the patient's presentation/case with the attending Emergency Department Physician; and as a result, I will admit patient. 19:45 Management of patient was discussed with the following: Waste Disposal Attendant: DR Bautista who will cp consult after discussion. Recommends repeat troponin and if elevated then anticoagulate. I considered the following discharge prescriptions or medication management in the emergency department Medications were administered in the Emergency Department. See NOV. 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 07/01 17:37 Order name: Basic Metabolic Panel; Complete Time: 19:08 cp 07/01 18:42 Interpretation: Normal except: CL 112; GLUC 109; CA 8.0. cp 07/01 17:37 Order name: CBC with Diff; Complete Time: 18:12 cp 07/01 18:13 Interpretation: Normal except: MPV 6.7. cp 07/01 17:37 Order name: D-Dimer; Complete Time: 18:42 cp 07/01 19:11 Interpretation: Reviewed. cp 07/01 17:37 Order name: LFT's; Complete Time: 19:08 cp 07/01 18:43 Interpretation: Normal except: AST < 10; BILIT < 0.2; IBILI, CALC 0.0; TP 6.3; ALB 2.7; cp GLOB 3.6; A/G 0.8. 07/01 17:37 Order name: Magnesium; Complete Time: 19:08 cp 07/01 17:37 Order name: NT PRO-BNP; Complete Time: 19:08 cp 07/01 17:37 Order name: PT-INR; Complete Time: 18:42 cp 07/01 17:37 Order name: Troponin HS; Complete Time: 19:08 cp 07/01 18:43 Interpretation: Reviewed. cp 07/01 17:37 Order name: UA Rfx Des Cult if indicated cp 07/01 17:37 Order name: Test, Urine cp 07/01 17:37 Order name: UDS cp 07/01 17:37 Order name: TSH; Complete Time: 19:08 cp 07/01 18:43 Interpretation: Reviewed. cp 07/01 17:37 Order name: T3 Free; Complete Time: 19:08 cp 07/01 19:10 Interpretation: Reviewed. cp 07/01 18:29 Order name: T4 Free; Complete Time: 19:08 EDMS 07/01 18:59 Order name: Test, Serum cp 07/01 20:02 Order name: Test, Urine; Complete Time: 09:08 kb4 07/01 17:37 Order name: XRAY Chest (1 view); Complete Time: 18:21 cp 07/01 18:21 Interpretation: Report review. cp 07/01 17:37 Order name: Cardiac monitoring; Complete Time: 17:51 cp 07/01 17:37 Order name: EKG - Nurse/Tech; Complete Time: 17:51 cp 07/01 17:37 Order name: IV Saline Lock; Complete Time: 17:51 cp 07/01 17:37 Order name: Labs collected and sent; Complete Time: 17:51 cp 07/01 17:37 Order name: O2 Per Protocol; Complete Time: 17:51 cp 07/01 17:37 Order name: O2 Sat Monitoring; Complete Time: 17:51 cp EC:43 Rate is 127 beats/min. Rhythm is regular. CT interval is normal. QRS interval is cp normal. QT interval is normal. T waves are Inverted in lead aVR. Interpreted by me. Reviewed by me. 19:41 Rate is 106 beats/min. Rhythm is regular. CT interval is normal. QRS interval is cp normal. QT interval is normal. T waves are Inverted in lead aVR. Interpreted by me. Reviewed by me. Administered Medications: 18:04 Drug: Labetalol IV 10 mg IV at calculated rate once over 2 mins; For SBP greater than jl7 140. Hold for HR less than 60, notify provider. Route: IV; Rate: calculated rate; Infused Over: 2 mins; Site: right antecubital; 18:06 Follow up: Response: No adverse reaction; IV Status: Completed infusion jl7 18:30 Follow up: Response: Cardiac rhythm changed jl7 18:35 Drug: NS 0.9% IV 1000 ml IV at 1000 ml once; to be given as a bolus over 120 minutes ap3 Route: IV; Rate: 1000 ml; Site: right antecubital; 19:37 Not Given (Patient Refused): morphineor iv 2 mg IVP once over 4 mins kb4 19:37 Not Given (Patient Refused): aspirinchewable tablet 324 mg PO once; 81 mg tablets x 4 kb4 19:49 Drug: Aspirin PO Chewable Tablet 324 mg PO once; 81 mg tablets x 4 Route: PO; kb4 21:08 Follow up: Response: No adverse reaction kb4 19:49 Drug: morphine IVP or IV 2 mg IVP once over 4 mins Route: IVP; Infused Over: 4 mins; kb4 Site: right antecubital; 21:08 Follow up: Response: No adverse reaction kb4 19:59 Drug: GI Cocktail without - (Maalox PO 30 ml, Lidocaine Mucous Membrane 2 % 15 kb4 ml) PO once Route: PO; 21:09 Follow up: Response: No adverse reaction kb4 Disposition Summary: 07/01/25 19:48 Hospitalization Ordered Notes: Hospitalization Status: Inpatient Admission cp Provider: Cesar Maya [facility] cp Condition: Stable cp Problem: new cp Symptoms: have improved cp Bed/Room Type: Standard cp Room Assignment: 405(07/01/25 21:19) vk Diagnosis - Tachycardia, unspecified cp - Abnormal levels of other serum enzymes cp Forms: - Medication Reconciliation Form cp - SBAR form cp - Leadership Thank You Letter cp Addendum: 07/05/2025 09:08 Co-signature as Attending Physician, Lukas Carrington DO I reviewed the patient's care t t7 provided by the Advanced Practice Provider and agree with the diagnosis and treatment plan. Signatures: Dispatcher [employer] EDMS Robert Win PA-C PA-C cp Leal, Jahala, RN RN jl7 Tamiko Li RN RN ap3 Moriah Washington Kayla, RN RN kb4 Lukas Carrington DO DO tt7 Corrections: (The following items were deleted from the chart) 07/01 20:02 20:02 Test, Urine+UC.LAB.BRZ ordered. EDMS EDMS 21: 19:48 yazan hoffman
[2025-07-01] MEDS ORDERED: MAGNES/ALUMIN/SIMET 30ML UCUP ONE (19:53)
[2025-07-01] MEDS ORDERED: LIDOCAINE VISCOUS 2% 10ML ORAL SOLN ONE (19:53)
[2025-07-01] MEDS ORDERED: NITROGLYCERIN 0.4 MG/TAB SL PRN (21:26)
--- NOTE | 2025-07-01 21:39 | P.HP ---
Certification for Inpatient Patient admitted to: Inpatient With expected LOS: >2 Midnights Patient will require the following post-hospital care: None Practitioner: I am a practitioner with admitting privileges, knowledge of patient current condition, hospital course, and medical plan of care. Services: Services provided to patient in accordance with Admission requirements found in Title 42 Section 412.3 of the Code of Federal Regulations <Cesar Maya - Last Filed: 07/02/25 00:05> Patient History Date of Service: 07/01/25 Reason for admission: Chest Pain, SVT History of Present Illness: Patient is a pleasant 44-year-old female with no significant past medical history except staghorn kidney stone, brought to the ER due to palpitation/SVT. 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 Patient states that she waited because she was supposed to go to urgent care to get her flu shot, states when she finally went to urgent care they checked her heart rate and EKG and realized that she was in SVT and she was then sent to the ER. Patient states her heart rate was 212,EMS was called and on route to the ER, EMS gave her adenosine 12 mg that converted back to sinus rhythm to sinus tach. Patient states initially when she had the palpitations, and SVT she did not have any chest pain, states when she arrived to the ER she had midsternal chest pain which she describes as tight and pressure type of pain. During admission assessment, patient was fully awake, alert and oriented x 3, denies of any chest pain, shortness of breath, numbness or tingling on both hands at this time, patient heart rate was in the 1 02-107 sinus tach. Patient initial troponin is 97.5. According to report received from ER PA, states he consulted software specialist . - Past Medical/Surgical History -: Kidney Stones. -: Removal of kidney stones - Social History Smoking Status: Never smoker Alcohol use: No CD- Drugs: No Caffeine use: No Place of Residence: Home <Cesar Maya - Last Filed: 07/02/25 00:05> Date of Service: 07/01/25 <HernandezVictorino ellisonmaverick Velazco - Last Filed: 07/04/25 12:34> Allergies No Known Allergies Allergy (Verified 11/03/12 14:28) Home Medications: Loratadine [Claritin*] 10 mg PO DAILY 07/01/25 Melatonin 1 mg PO BEDTIME 07/01/25 Norethindrone-E.estradiol-Iron [Aurovela Fe 1-20 Tablet] 1 each PO UD 07/01/25 Metoprolol Succinate [Toprol Xl*] 25 mg PO DAILY 30 Days #30 tab 07/03/25 Review of Systems 10-point ROS is otherwise unremarkable Cardiovascular: Chest Pain, Palpitations <Cesar Maya - Last Filed: 07/02/25 00:05> Physical Examination - Physical Exam General: Alert, In no apparent distress, Oriented x3 HEENT: Atraumatic, Normocephalic, PERRLA Neck: Supple, 2+ carotid pulse no bruit, JVD not distended, No Thyromegaly, No LAD, Without JVD or thyroid abnormality Respiratory: Clear to auscultation bilaterally, Normal air movement Cardiovascular: No edema, Normal pulses, No gallops, Other (Sinus Tach) Capillary refill: <2 Seconds Gastrointestinal: Normal bowel sounds, Hypoactive, Soft and benign, Non- distended, W/out hepatomegaly, No ascites Musculoskeletal: No clubbing, No swelling, No contractures, No erythema, No tenderness, No warmth Integumentary: No rashes, No breakdown, No significant lesion, No tenderness/swelling, No erythema, No warmth, No cyanosis Neurological: Normal gait, Normal speech, Normal strength at 5/5 x4 extr, Normal tone, Sensation intact, Cranial nerves 3-12 intact, Normal reflexes 2+, Normal affect Lymphatics: No axilla or inguinal lymphadenopathy - Studies Laboratory Data (last 24 hrs) 07/01/25 07/01/25 07/01/25 17:46 17:46 17:46 WBC 7.70 Hgb 13.7 Hct 40.5 Plt Count 334 PT 11.0 INR 0.97 Sodium 144 Potassium 3.8 BUN 11 Creatinine 0.78 Glucose 109 H Magnesium 2.0 Total Bilirubin < 0.2 L AST < 10 L ALT < 14 Alkaline Phosphatase 50 <Cesar Maya - Last Filed: 07/02/25 00:05> Female Exam - Breasts Breasts: Normal configuration, Normal contours, Symmetrical <Cesar Maya - Last Filed: 07/02/25 00:05> Assessment and Plan - Plan Patient is a pleasant 44-year-old female brought to the ER due to palpitations/SVT, received 12 mg adenosine by EMS, converted to sinus rhythm/ sinus tach. Patient admitted inpatient with diagnosis of SVT and chest pain. (1)SVT/Chest pain. -81 mg p.o. daily. -0.4 mg sublingual nitro as needed every 5 minutes x 3. -Morphine 4 mg IV as needed every 4 hours. -Serial troponin every 8 hours x 3. -Order stat lipid panel. -EKG every 8 hours x 3. -Consult software specialist. -Order an echocardiogram. -Order metoprolol 25 mg twice daily. (2)DVT prophylaxis. -Lovenox 40 mg subcu daily. (3)Explained the entire treatment plan to the patient, and parents present at bedside, solicited questions answered and voiced understanding. Discharge Plan: Snf Plan to discharge in: 72 Hours - Advance Directives Does patient have a Living Will: No Does patient have a Durable POA for Healthcare: No - Code Status/Comfort Care Code Status Assessed: Yes Code Status: Full Code Critical Care: No Time Spent Managing Pts Care (In Minutes): 55 <ChapinadenikeCesar - Last Filed: 07/02/25 00:05> Date of Service: 07/01/25 Patient was seen and examined. Events of the last 24 hours have been noted. Spoke with with EVELYN regarding patient's clinical picture after evaluating and examining the patient independently. I performed a substantial part of the MDM during this patient's care today. I personally made or approved the documented management plan and acknowledge its risk of complications. I agree with the findings and documentation provided in the EVELYN's notes. <Marilyn Hernandez - Last Filed: 07/04/25 12:34>
[2025-07-01 23:05] VITALS: BMI 23.6
[2025-07-01] MEDS ORDERED: ZOLPIDEM TARTRATE 5 MG TABLET PO PRN (23:09)
[2025-07-02] MEDS: MELATONIN 3 MG TABLET PO PRN (00:12)
[2025-07-02] MEDS: ENOXAPARIN 60 MG/0.6 ML SQ ONE (00:56)
[2025-07-02 05:14] LABS: Absolute Lymphocytes (CBC) 3.2 K/uL (0.7-4.9); Hematocrit 35.2 % (36.0-45.0); Hemoglobin 12.0 g/dL (12.0-15.0); MCH 30.8 pg (27.0-35.0); MCHC 34.0 g/dL (32.0-36.0); MCV 90.5 fL (80-100); MPV 7.3 fL (7.6-11.3); Nucleated RBC Absolute Count 0.0 (0-0); Nucleated Red Blood Cells % 0.0 % (0-0); RBC Red Blood Cell Count 3.89 M/uL (3.86-4.86); White Blood Count 8.60 thou/uL (4.3-10.9)
[2025-07-02 05:36] LABS: Anion Gap 10.0 mEq/L (5.0-15.0); BUN Blood Urea Nitrogen 12.0 mg/dL (7-18); Glucose Level 87.0 mg/dL (74-106); Potassium 4.0 mEq/L (3.5-5.1)
[2025-07-02 06:04] LABS: HDL Cholesterol 49 mg/dL (40-60)
[2025-07-02] MEDS: METOPROLOL TAR 25 MG TAB PO SCH (06:10)
[2025-07-02] MEDS: ENOXAPARIN 40 MG/0.4 ML SQ SCH ×2 (07:35→18:06)
[2025-07-02] MEDS: ASPIRIN EC 81 MG TAB PO SCH (07:35)
--- NOTE | 2025-07-02 09:50 | P.PN ---
Subjective Date of Service: 07/02/25 Chief Complaint: Patient admitted with SVT Subjective: Improving (Improving no new complaints and has not had further episodes no prior history of SVT) Review of Systems Cardiovascular: Chest Pain (Some chest discomfort) Physical Examination - Vital Signs Temperature: 98.4 F Blood Pressure: 113/69 Pulse: 90 Respirations: 17 Pulse Ox (%): 91 - Physical Exam General: Alert, Oriented x3 Respiratory: Clear to auscultation bilaterally Cardiovascular: No edema, Regular rate/rhythm, Normal S1 S2 - Studies Laboratory Data (last 24 hrs) 07/01/25 07/01/25 07/01/25 17:46 17:46 17:46 WBC 7.70 Hgb 13.7 Hct 40.5 Plt Count 334 PT 11.0 INR 0.97 Sodium 144 Potassium 3.8 BUN 11 Creatinine 0.78 Glucose 109 H Magnesium 2.0 Total Bilirubin < 0.2 L AST < 10 L ALT < 14 Alkaline Phosphatase 50 Assessment And Plan - Current Problems (Diagnosis) (1) Paroxysmal SVT (supraventricular tachycardia) Current Visit: Yes Status: Acute Plan: Patient is 44 years of age admitted with acute onset of SVT no prior history no prior history of cardiopulmonary problems denies excessive use of drugs or any caffeine intake this resolved with the use of adenosine EKG shows normal sinus rhythm most likely she has paroxysmal supraventricular tachycardia most likely is atrioventricular milena reentry tachycardia she is currently doing well been monitored consult cardiology possible discharge today with outpatient workup possibly with beta-blockers chemistries reviewed troponin is mildly elevated I suspect is from demand ischemia patient's triglycerides are also elevated will need a fasting level
[2025-07-02] MEDS: ACETAMINOPHEN 500 MG TAB PO PRN (10:05)
[2025-07-02] MEDS: MORPHINE 4 MG/ML SYR IV PRN (15:05)
[2025-07-02] MEDS: ONDANSETRON 4 MG/2 ML VIAL IV PRN (17:33)
[2025-07-02] MEDS: ACETAMIN/CAFFEINE/BUTALB TAB PO ONE (20:50)
[2025-07-03] MEDS: SUMATRIPTAN SUCCI 50 MG TAB PO PRN (04:21)
[2025-07-03] MEDS: NA CHLORIDE 0.9% 1,000 ML IV SCH (04:57)
[2025-07-03 05:26] LABS: Absolute Lymphocytes (CBC) 2.6 K/uL (0.7-4.9); Hematocrit 39.8 % (36.0-45.0); Hemoglobin 13.8 g/dL (12.0-15.0); MCH 31.0 pg (27.0-35.0); MCHC 34.7 g/dL (32.0-36.0); MCV 89.4 fL (80-100); MPV 6.9 fL (7.6-11.3); Nucleated RBC Absolute Count 0.0 (0-0); Nucleated Red Blood Cells % 0.0 % (0-0); RBC Red Blood Cell Count 4.45 M/uL (3.86-4.86); White Blood Count 6.50 thou/uL (4.3-10.9)
[2025-07-03 05:38] LABS: Anion Gap 9.5 mEq/L (5.0-15.0); BUN Blood Urea Nitrogen 9.0 mg/dL (7-18); Glucose Level 93.0 mg/dL (74-106); Potassium 3.5 mEq/L (3.5-5.1)
[2025-07-03 07:54] VITALS: BP 122/66; TEMP 98.1
[2025-07-03 09:27] VITALS: O2SAT 97
--- NOTE | 2025-07-03 10:01 | P.CNS ---
Date of Consult: 07/03/25 Chief Complaint: Patient admitted with SVT History of Present Illness: Patient with no significant cardiac PMH, presented with palpitations, mention that she had fast HR for few hours, went to her allergy MD appointment, HR was in the 200s, EMS called and SVT was diagnosed, responded well to adenosine, denies similar problems in the past. no chest pain, no syncope, no breathing problems. Allergies No Known Allergies Allergy (Verified 11/03/12 14:28) Home medications list reviewed: Yes Home Medications: Loratadine [Claritin*] 10 mg PO DAILY 07/01/25 Melatonin 1 mg PO BEDTIME 07/01/25 Norethindrone-E.estradiol-Iron [Aurovela Fe 1-20 Tablet] 1 each PO UD 07/01/25 Metoprolol Succinate [Toprol Xl*] 25 mg PO DAILY 30 Days #30 tab 07/03/25 - Past Medical/Surgical History Diabetic: No -: Kidney Stones. -: migrain -: anxiety -: Removal of kidney stones - Social History Smoking Status: Unknown if ever smoked Alcohol use: No CD- Drugs: No Caffeine use: No Place of Residence: Home Review of Systems 10-point ROS is otherwise unremarkable Physical Examination Temp Pulse Resp BP Pulse Ox 98.1 F 96 H 15 122/66 97 07/03/25 07:51 07/03/25 07:51 07/03/25 07:51 07/03/25 07:51 07/03/25 07:51 General: Alert, In no apparent distress HEENT: Atraumatic, PERRLA, Mucous membr. moist/pink, EOMI, Sclerae nonicteric Neck: Supple, 2+ carotid pulse no bruit, No LAD, Without JVD or thyroid abnormality Respiratory: Clear to auscultation bilaterally, Normal air movement Cardiovascular: Regular rate/rhythm, Normal S1 S2 Gastrointestinal: Normal bowel sounds, No tenderness Musculoskeletal: No tenderness Integumentary: No rashes Neurological: Normal gait, Normal speech, Normal tone, Normal affect Lymphatics: No axilla or inguinal lymphadenopathy - Problems (1) Paroxysmal SVT (supraventricular tachycardia) Current Visit: Yes Status: Acute Plan: patient is currently in sinus rhythm continue lopressor 25 mg po bid continue ASA 81 mg daily outpatient follow up with cardiology for echo, event monitor (2) Troponin level elevated Current Visit: Yes Status: Acute Plan: mild elevated with no significant delta, no significant EKG changes, this is most likely type 2 IA from SVT Outpatient follow up with cardiology for stress test and echo
--- NOTE | 2025-07-03 10:27 | P.DS ---
Admission Date: 07/01/25 Discharge Date: 07/03/25 Disposition: ROUTINE DISCHARGE Discharge Condition: FAIR Reason for Admission: Patient admitted with SVT - Problems (1) Paroxysmal SVT (supraventricular tachycardia) Current Visit: Yes Status: Acute Brief History of Present Illness: Patient is 44 years of age admitted with acute onset of supraventricular tachycardia Hospital Course: She was admitted to the floor did not have any further episodes this was acute onset first time most likely paroxysmal supraventricular tachycardia seen by cardiology labs chemistries unremarkable troponin mildly elevated I suspect it was demand ischemia chest x-ray also clear At the time of discharge patient was asymptomatic no palpitations no chest pain physical examination was normal she is to follow-up with cardiology as an outpatient was discharged home on Toprol-XL 25 mg thyroid function test was mildly abnormal no evidence of thyrotoxicosis Vital Signs/Physical Exam: Temp Pulse Resp BP Pulse Ox 98.1 F 96 H 15 122/66 97 07/03/25 07:51 07/03/25 07:51 07/03/25 07:51 07/03/25 07:51 07/03/25 07:51 Laboratory Data at Discharge: WBC 6.50 thou/uL (4.3-10.9) 07/03/25 05:01 Hgb 13.8 g/dL (12.0-15.0) D 07/03/25 05:01 Hct 39.8 % (36.0-45.0) 07/03/25 05:01 Plt Count 288 thou/uL (152-406) 07/03/25 05:01 PT 11.0 SECONDS (10-13.0) 07/01/25 17:46 INR 0.97 07/01/25 17:46 Sodium 138 mEq/L (136-145) 07/03/25 05:01 Potassium 3.5 mEq/L (3.5-5.1) 07/03/25 05:01 BUN 9 mg/dL (7-18) 07/03/25 05:01 Creatinine 0.69 mg/dL (0.55-1.02) 07/03/25 05:01 Glucose 93 mg/dL (74-106) 07/03/25 05:01 Magnesium 2.0 mg/dL (1.6-2.4) 07/01/25 17:46 Total Bilirubin < 0.2 mg/dL (0.2-1.0) L 07/01/25 17:46 AST < 10 U/L (15-37) L 07/01/25 17:46 ALT < 14 U/L (13-56) 07/01/25 17:46 Alkaline Phosphatase 50 U/L (45-117) 07/01/25 17:46 Triglycerides 429 mg/dL (<150) H 07/02/25 04:43 Cholesterol 189 mg/dL (<200) 07/02/25 04:43 LDL Cholesterol Direct 116 mg/dL (100-129) 07/02/25 04:43 HDL Cholesterol 49 mg/dL (40-60) 07/02/25 04:43 Cholesterol/HDL Ratio 3.86 07/02/25 04:43 Home Medications: Loratadine [Claritin*] 10 mg PO DAILY 07/01/25 Melatonin 1 mg PO BEDTIME 07/01/25 Norethindrone-E.estradiol-Iron [Aurovela Fe 1-20 Tablet] 1 each PO UD 07/01/25 Metoprolol Succinate [Toprol Xl*] 25 mg PO DAILY 30 Days #30 tab 07/03/25 New Medications: Metoprolol Succinate [Toprol Xl*] 25 mg PO DAILY 30 Days #30 tab Physician Discharge Instructions: Admitted with PSVT and NSTEMI . S/B Dr. neil. Discharge on Toprol. F/u with Dr. Neil Diet: Regular Activity: Ad leonardo Followup: Nimesh Neil MD [ACTIVE - CAN ADMIT] - 1 Week (call to schedule an appointment) NONE,NONE [Primary Care Provider] -
== END 2025-07-03 10:30 | disposition home or self-care (01) | DRG 282 ==
LOC: ER 17:35 → ERHOLD 21:09 → 4TH 22:22
PROVIDERS: ADMIT Internal Medicine; ATTEND Internal Medicine Sleep Medicine
DX: I47.10 Supraventricular tachycardia, unspecified (principal); I21.A1 Myocardial infarction type 2; F41.9 Anxiety disorder, unspecified; Z79.899 Other long term (current) drug therapy
CPT/HCPCS: 36415; 71045; 80048; 80061; 80076; 81025; 83735; 83880; 84439; 84443; 84481; 84484; 85025; 85379; 85610; 86376; 93005; 96374; 96375; 99285; J1650; J1885; J2270; J2405; J7030